=== PATIENT | male | born 1960 | race Caucasian/White ===

== ENCOUNTER 2018-01-22 19:38 | Inpatient (IN) | payer MEDICARE, OTHER ==
[~2018-01-22] VITALS: Ht 177.8 cm; Wt 97.5 kg
[2018-01-22] MEDS ORDERED: MAG HYDROX/AL HYDROX/SIMETH 30 ML ORAL.SUSP PO PRN (20:15)
[2018-01-22] MEDS ORDERED: METHYL SALICYLATE/MENTHOL TOPICAL OINTMENT 29GM TUBE. TP PRN (20:15)
[2018-01-22] MEDS ORDERED: ACETAMINOPHEN 325 MG TABLET PO PRN (20:15)
--- NOTE | 2018-01-22 20:49 | EKG ---
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
[2018-01-22 21:02] LABS: BASO # 0.1 x10^3/uL (0.0-0.2); BASO % 1 % (0-3); EOS # 0.4 x10^3/uL (0.0-0.7); EOS % 4 % (0-3); HEMATOCRIT 46.7 % (39.0-53.0); HEMOGLOBIN 15.9 g/dL (13.0-17.5); LYMPH # 1.6 x10^3/uL (1.0-4.8); LYMPH % 18 % (24-48); MEAN CORPUSCULAR HEMOGLOBIN 30 pg (25-35); MEAN CORPUSCULAR HGB CONC 34 g/dL (31-37); MEAN CORPUSCULAR VOLUME 89 fL (79-100); MONO # 0.8 x10^3/uL (0.0-1.1); MONO % 10 % (0-9); NEUT % 68 % (31-73); PLATELET COUNT 237 x10^3/uL (140-400); RED BLOOD COUNT 5.27 x10^6/uL (4.30-5.70); RED CELL DISTRIBUTION WIDTH 14.1 % (11.5-14.5); WHITE BLOOD COUNT 8.8 x10^3/uL (4.0-11.0)
[2018-01-22 21:23] LABS: ALBUMIN 3.4 g/dL (3.4-5.0); ALBUMIN/GLOBULIN RATIO 0.9 (1.0-1.7); CALCIUM 9.1 mg/dL (8.5-10.1); CREATININE 0.8 mg/dL (0.7-1.3); GFR 99.3; POTASSIUM 3.8 mmol/L (3.5-5.1); TOTAL BILIRUBIN 1.1 mg/dL (0.2-1.0); TOTAL PROTEIN 7.4 g/dL (6.4-8.2)
--- NOTE | 2018-01-22 22:47 | PDOC ---
Exam Note: Marc Note: Please also refer to the separate dictated note~for this date of service dictated separately. Discussed the patient with Nursing staff reviewed the chart.~Reviewed interim history and current functioning. Reviewed vital signs,~ Labs/ Radiology~and current medications noted below. Continue current treatment with the changes noted in the dictated addendum note Assessment: Labs: Laboratory Tests Test 01/22/18 20:30 01/22/18 20:35 Amylase Level 19 U/L (25-115) L Lipase 63 U/L (73-393) L White Blood Count 8.8 x10^3/uL (4.0-11.0) Red Blood Count 5.27 x10^6/uL (4.30-5.70) Hemoglobin 15.9 g/dL (13.0-17.5) Hematocrit 46.7 % (39.0-53.0) Mean Corpuscular Volume 89 fL (79-100) Mean Corpuscular Hemoglobin 30 pg (25-35) Mean Corpuscular Hemoglobin Concent 34 g/dL (31-37) Red Cell Distribution Width 14.1 % (11.5-14.5) Platelet Count 237 x10^3/uL (140-400) Neutrophils (%) (Auto) 68 % (31-73) Lymphocytes (%) (Auto) 18 % (24-48) L Monocytes (%) (Auto) 10 % (0-9) H Eosinophils (%) (Auto) 4 % (0-3) H Basophils (%) (Auto) 1 % (0-3) Neutrophils # (Auto) 6.0 x10^3uL (1.8-7.7) Lymphocytes # (Auto) 1.6 x10^3/uL (1.0-4.8) Monocytes # (Auto) 0.8 x10^3/uL (0.0-1.1) Eosinophils # (Auto) 0.4 x10^3/uL (0.0-0.7) Basophils # (Auto) 0.1 x10^3/uL (0.0-0.2) Sodium Level 144 mmol/L (136-145) Potassium Level 3.8 mmol/L (3.5-5.1) Chloride Level 105 mmol/L (98-107) Carbon Dioxide Level 28 mmol/L (21-32) Anion Gap 11 (6-14) Blood Urea Nitrogen 18 mg/dL (8-26) Creatinine 0.8 mg/dL (0.7-1.3) Estimated GFR (Cockcroft-Gault) 99.3 BUN/Creatinine Ratio 23 (6-20) H Glucose Level 116 mg/dL (70-99) H Lactic Acid Level 1.1 mmol/L (0.4-2.0) Calcium Level 9.1 mg/dL (8.5-10.1) Magnesium Level 1.7 mg/dL (1.8-2.4) L Total Bilirubin 1.1 mg/dL (0.2-1.0) H Aspartate Amino Transferase (AST) 15 U/L (15-37) Alanine Aminotransferase (ALT) 26 U/L (16-63) Alkaline Phosphatase 92 U/L (46-116) Lactate Dehydrogenase 172 U/L (85-227) Total Protein 7.4 g/dL (6.4-8.2) Albumin 3.4 g/dL (3.4-5.0) Albumin/Globulin Ratio 0.9 (1.0-1.7) L Current Medications: Meds: Current Medications Acetaminophen (Tylenol) 650 mg PRN Q6HRS PRN PO PAIN / TEMP; Start 01/22/18 at 20:15 Multi-Ingredient Ointment (Analgesic [place]) 1 luc PRN QID PRN TP MUSCLE PAIN; Start 01/22/18 at 20:15 Al Hydroxide/Mg Hydroxide (Mylanta Plus Xs) 15 ml PRN AFTMEALHC PRN PO DYSPEPSIA; Start 01/22/18 at 20:15 Magnesium Hydroxide (Milk Of Magnesia) 2,400 mg PRN QHS PRN PO CONSTIPATION; Start 01/22/18 at 20:15 Nicotine (Nicoderm Cq 14mg) 1 patch DAILY TD ; Start 01/23/18 at 09:00 I have reviewed the current psychotropics carefully including drug interactions. Risk benefit ratio favors no change other than as noted in my dictated progress note. GUADALUPE DELGADO MD Jan 22, 2018 22:47
[2018-01-22] MEDS ORDERED: BACL10TA PO (23:13)
[2018-01-22] MEDS ORDERED: ASPI-630 PO (23:13)
[2018-01-22] MEDS ORDERED: APIX5TAB3 PO (23:13)
[2018-01-22] MEDS ORDERED: LOSA50TA86 PO (23:13)
[2018-01-22] MEDS ORDERED: SPIR25TA PO (23:13)
[2018-01-22] MEDS ORDERED: ACET325S PO (23:13)
[2018-01-22] MEDS ORDERED: CARV6.2541 PO (23:13)
[2018-01-22] MEDS ORDERED: QUET25TA5 PO ×2 (23:13)
[2018-01-22] MEDS ORDERED: CITA20TA9 PO (23:13)
[2018-01-22] MEDS ORDERED: ATOR40TA59 PO (23:13)
[2018-01-22] MEDS ORDERED: MAGN400T3 PO (23:13)
[2018-01-22] MEDS ORDERED: TRAM50TA PO (23:13)
[2018-01-22] MEDS ORDERED: GABA-585 PO (23:13)
[2018-01-22] MEDS ORDERED: ACETAMINOPHEN 500 MG TABLET PO PRN (23:15)
[2018-01-23 01:43] VITALS: BP 158/74
[2018-01-23 07:25] LABS: BILIRUBIN,URINE NEG (NEG); CLARITY,URINE TURBID; COLOR,URINE AMBER; GLUCOSE,URINE NEG (NEG)
[2018-01-23 07:26] LABS: BACTERIA,URINE MANY /HPF (0-FEW); NITRITE,URINE POS (NEG); RBC,URINE 0 /HPF (0-2); SQUAMOUS EPITHELIAL CELL,UR OCC /LPF; UROBILINOGEN,URINE 1 mg/dL (0.2 mg/dL); WBC,URINE >40 /HPF (0-4)
[2018-01-23] MEDS: ASPIRIN 81 MG TAB.CHEW PO SCH (10:20)
[2018-01-23] MEDS: LOSARTAN 50 MG TABLET. PO SCH (10:20)
[2018-01-23] MEDS: APIXABAN 5 MG TABLET. PO SCH ×2 (10:20→19:35)
[2018-01-23] MEDS: MAGNESIUM OXIDE 400 MG TABLET PO SCH (10:20)
[2018-01-23] MEDS: SPIRONOLACTONE 25 MG TABLET PO SCH (10:20)
[2018-01-23] MEDS: NICOTINE 14MG PATCH. TD SCH (10:20)
[2018-01-23] MEDS: CARVEDILOL 6.25 MG TABLET PO SCH ×2 (10:20→17:54)
[2018-01-23] MEDS: BACLOFEN 10 MG TABLET PO SCH ×3 (10:20→19:35)
[2018-01-23] MEDS: CITALOPRAM 10 MG TABLET. PO SCH (10:20)
[2018-01-23] MEDS: GABAPENTIN 400 MG CAPSULE. PO SCH ×4 (10:20→19:35)
[2018-01-23] MEDS ORDERED: IOHEXOL 240 MG/ML 50ML VIAL. ONE (14:34)
[2018-01-23] MEDS ORDERED: IOHEXOL 300 MG/ML 75 ML VIAL. IV ONE (16:00)
[2018-01-23 16:07] VITALS: BP 148/87
[2018-01-23] MEDS: CHOLECALCIFEROL (VITAMIN D3) 50,000 UNIT CAPSULE PO SCH (16:20)
[2018-01-23] MEDS: QUEtiapine 25 MG TABLET. PO SCH ×2 (16:22→19:35)
--- NOTE | 2018-01-23 16:34 | RAD ---
PQRS Compliance statement: One or more of the following individualized dose reduction techniques were utilized for this examination: 1. Automated exposure control. 2. Adjustment of the mA and/or kV according to patient size. 3. Use of iterative reconstruction technique. Indication:FALL, SEVERE LUQ PAIN. TECHNIQUE: CT chest, abdomen and pelvis with IV contrast with multiplanar reformats. COMPARISON: None FINDINGS:CT chest: Heart is moderately enlarged in size. No pericardial or pleural effusion. Mild coronary artery calcifications. Clear neck base. No enlarged axillary, mediastinal or hilar adenopathy. Mild bibasilar dependent atelectasis in the lungs. No pneumothorax. Most likely minimal debris or mucus seen in the right proximal bronchus. Nondisplaced fracture is seen through the right lateral 4, 5, [address] abdomen pelvis: Liver, spleen, pancreas, adrenals, kidneys are within normal limits. No free pelvic fluid or ascites. No enlarged retroperitoneal or pelvic adenopathy. Mild diffuse atherosclerotic disease seen of the abdominal aorta. No bowel obstruction. Normal appendix. No pneumoperitoneum. Urinary bladder demonstrates circumferential wall thickening. Prostate and seminal vesicles show no mass lesion. No suspicious bony lesions in the pelvis. IMPRESSION: 1. Nondisplaced right fourth-sixth rib fractures. 2. No other findings. Electronically signed by: Piecre Reddy DO (01/23/2018 4:31 PM) [id number]
--- NOTE | 2018-01-23 19:05 | HP ---
ADMIT DATE: 01/22/2018 PSYCHIATRIC ADMISSION HISTORY/EVALUATION This note covers elements not covered in my initial note, 01/23/2018. I met with the patient on the evening of 01/23/2018. Previously discussed with nursing staff on several occasions including prior to the patient's admission after he was referred to us from the [facility] by Dr. Santamaria, his psychiatrist and Dr. Francisco, his primary care physician after the patient had stopped eating for the last 7-8 days. He was getting weak, was having falls as a consequence of this. He had stopped taking his medications. Reportedly, he recently broke up with his girlfriend. Per the guardian insistence, all of this triggered the worsening of his agitation, depression. Additionally, he has significant expressive aphasia, some memory deficits, and past history of polydrug abuse and progressive dementia, vascular, status post cerebrovascular accident. The patient had failed outpatient psychiatric interventions resulting in this referral. CHIEF COMPLAINT: "No." The patient was quite nonverbal consequent to his aphasia trying to show me different fingers in an attempt to convey when he thought he had come here and he felt he has been here about 5 days. HISTORY OF PRESENT ILLNESS: The patient has a history of possible bipolar disorder, past history of polysubstance abuse, and vascular dementia, status post cerebrovascular accident. He has been more depressed, hopeless, helpless, worthless, paranoid, delusional surrounding the circumstances noted above. He has made statements that he wants to . He has been aggressive towards his roommates, specifically, on 01/10/2018. No active homicidal ideation. PAST PSYCHIATRIC HISTORY: As above. PAST MEDICAL HISTORY: Status post CVA; aphasia, expressive. Hard of hearing, history of polysubstance abuse, vascular dementia. ACCU-CHEKS: Daily. DIET: Regular. ALLERGIES: CODEINE, INFLUENZA VACCINE, PENICILLIN, HYDROCODONE. CODE STATUS: FULL CODE. CURRENT PSYCHOTROPICS: Seroquel 12.5 mg in the afternoon and 25 mg at night. FAMILY HISTORY: Noncontributory. SOCIAL HISTORY: Past history of alcohol, drug abuse. No physical, sexual or elder abuse history is noted. He is not known to be a perpetrator. REACTION TO HOSPITALIZATION: The patient accepting of this. ASSETS: Stable living at the above retirement. MENTAL STATUS EXAMINATION: The patient was seen individually on the evening of 01/23/2018 in his room. He was unaware of when he came here. Part of this is expressive aphasia, but he truly did not seem to know because he felt he had been here several days, which he showed me with his fingers. Insight, judgment, recent and remote memory, attention, concentration, fund of knowledge poor, consistent with his diagnosis. He does appear somewhat paranoid, depressed. LABORATORY DATA: Reviewed. IMPRESSION: Bipolar 1 disorder, depressed with psychotic features; major neurocognitive disorder, vascular with delusion, depression; anxiety disorder, unspecified; impulse control disorder, unspecified. Rest as above including past history of polysubstance abuse/alcohol abuse. TREATMENT/PLAN: Admit to Geropsychiatry Unit at [facility]. I will see the patient daily individually from a psychiatric standpoint, medical followup per Dr. Collins/Dr. Johnson. Continue the patient on his current psychotropics, observe him baseline. Consider adding Depakote as a mood stabilizer, increasing the Seroquel. He was an inpatient at the [facility] in [place] and we will obtain those records as well. Estimated length of stay 10-12 days. DISPOSITION: Plans would be back to [facility] when stable. Dr. Pope will assume care of the patient for me starting this evening. MAN Shant DELGADO MD DR: RICHY/amada JOB#: [id number] / [id number]
[2018-01-23] MEDS: PATCH REMOVAL. MC SCH (19:23)
[2018-01-23] MEDS: ATORVASTATIN CALCIUM 20 MG TABLET PO SCH (19:35)
[2018-01-23 20:08] LABS: THYROXINE 7.8 ug/dL (4.5-12.0)
[2018-01-23] MEDS: MORPHINE SULFATE 10 MG/5 ML ORAL SOLUTION. PO PRN (20:38)
--- NOTE | 2018-01-23 21:54 | CONS ---
DATE OF CONSULTATION: 01/23/2018 REASON FOR CONSULTATION: Medical management. HISTORY OF PRESENT ILLNESS: The patient is a 57-year-old male patient, a resident at [facility], who was admitted on account of refusal to eat. He apparently has stopped eating, has not eaten anything for the last 7-8 days, stopped taking medication as recently broke up with his girlfriend, their guardians insistence. The transition social worker tried to visit with him, but the patient dislikes black people. In the facility, I believe that he fell as a result of his not eating for the last 7-8 days. [facility] and apparently after a fall, sustaining a laceration of oral cavity, loose tooth due to trauma and nasal bone fracture and was extensively investigated at the [facility]. From there, initially, there was an attempt to bring him directly here; however, he was discharged and was admitted directly from [facility] for inpatient psychiatric stabilization. When he was admitted yesterday, he did complain of left upper abdominal pain and we did some stat labs that were unremarkable When I saw him, he continued to complain of pain in his left side of the chest and also left upper quadrant. 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 PAST SURGICAL HISTORY: Unremarkable. FAMILY HISTORY: Positive for hypertension. SOCIAL HISTORY: He is a resident at [facility]. He does not smoke, drink alcohol or use any recreational drugs. ALLERGIES: HE IS ALLERGIC TO INFLUENZA VIRUS VACCINE, PENICILLIN AND HYDROCODONE. MEDICATIONS: He is currently on following medications: He is on baclofen 10 mg 3 times a day, apixaban 5 mg twice a day, atorvastatin calcium 40 mg at bedtime, carvedilol 6.25 mg twice a day, losartan potassium 50 mg daily, spironolactone 25 mg daily, aspirin 81 mg once a day, tramadol 50 mg every 8 hours and Tylenol 650 mg every 4 hours. He is on gabapentin 400 mg 4 times a day, citalopram hydrobromide 30 mg daily, quetiapine fumarate 12.5 mg daily and 25 mg at bedtime, magnesium oxide 400 mg daily. REVIEW OF SYSTEMS: The patient's main complaint is pain in his left upper quadrant. PHYSICAL EXAMINATION: GENERAL: When I examined him, he was resting slightly propped up in bed, pointing to his left upper quadrant and left-sided chest. He has expressive aphasia, difficult to understand what he stays, but he was somewhat pale, but no jaundice, cyanosis, or thyromegaly. No jugular venous distension. No lower limb edema. VITAL SIGNS: His heart rate was 74, blood pressure 158/74, temperature was 98, respiratory rate was 21 and oxygen saturation was 95%. HEAD, EYES, EARS, NOSE AND THROAT: Showed normocephalic. He has laceration on his lower limb because of recent fall. NECK: Supple. HEART: Showed normal first and second sounds. No gallop, rub or murmur. CHEST: Clear to auscultation. No crepitation or rhonchi. ABDOMEN: Distended with marked tenderness in the left upper quadrant and also tenderness on palpation of the left-sided chest wall. There is no guarding or rigidity. No organomegaly. Hernial orifice intact and bowel sounds normal. NEUROLOGIC: He was awake and alert. All his cranial nerves are intact. He has right-sided hemiplegia. He has aphasia. LABORATORY DATA: Showed a white cell count of 8800, hemoglobin 15.9, hematocrit 46.7, MCV 89 and platelet count of 237,000. His chemistry showed serum sodium 144, potassium 3.8, chloride 105, bicarbonate 28, anion gap of 11, BUN 18, creatinine 0.8, estimated GFR was 99 mL per minute, his glucose was 116. Lactic acid 1.1, calcium was 9.1. Total bilirubin slightly elevated at 1.1. However, AST, ALT, alkaline phosphatase were normal. Lactate dehydrogenase was 172. Total protein was 7.4, albumin was 3.4. His amylase was 19. Lipase was 63. His magnesium was 1.7. Serum iron was 43. TIBC was 180, iron saturation was 15%. His serum triglycerides were 79, total cholesterol was 95, LDL was 42, VLDL was 15, and HDL cholesterol was 38 and the ratio was 2. His vitamin B12 was 757. His 25-hydroxy vitamin D was 16.2. TSH was normal at 1.854. His urinalysis was essentially unremarkable. The urine was turbid with a pH of 5.5, specific gravity of 1.030. There was a trace of protein. The urine was negative for glucose. There is large amount of ketones, small amount of blood, positive for nitrite, small amount of leukocyte esterase, 0 rbc's, more than 40 wbc's, and many bacteria. His thyroglobulin antibody was nonreactive. Given the history of fall and severe pain in the left upper quadrant, I am concerned that he might have intra-abdominal pathology either left-sided rib fracture or splenic injury or retroperitoneal hemorrhage. PLAN: I plan to arrange for him to have a CT scan of the chest, abdomen and pelvis with IV and oral contrast given that he is already on apixaban for his AFib and we will basically decide on further management according to the finding. Thank you, Dr. West for allowing me to participate in the care of this patient. SALVATORE MICHELLE MD DR: RAHEEL/amada JOB#: [id number] / [id number]
--- NOTE | 2018-01-23 23:01 | PDOC ---
Exam Note: Marc Note: Please also refer to the separate dictated note~for this date of service dictated separately.~Patient seen individually. Discussed the patient with Nursing staff reviewed the chart.~Reviewed interim history and current functioning. Reviewed vital signs,~Labs/ Radiology~and current medications noted below. Continue current treatment with the changes noted in the dictated addendum note Assessment: Vital Signs: Vital Signs Date Time Temp Pulse Resp B/P (MAP) Pulse Ox O2 Delivery O2 Flow Rate FiO2 01/23/18 20:38 92 01/23/18 17:54 86 148/87 01/23/18 16:07 98.4 20 Room Air Labs: Laboratory Tests Test 01/23/18 06:35 Urine Collection Type Unknown Urine Color Dang Urine Clarity Turbid Urine pH 5.5 Urine Specific [place] >=1.030 Urine Protein Trace (NEG-TRACE) Urine Glucose (UA) Neg mg/dL (NEG) Urine Ketones (Stick) >=160 mg/dL (NEG) Urine Blood Small (NEG) Urine Nitrite Pos (NEG) Urine Bilirubin Neg (NEG) Urine Urobilinogen Dipstick 1 mg/dL (0.2 mg/dL) Urine Leukocyte Esterase Small (NEG) Urine RBC 0 /HPF (0-2) Urine WBC >40 /HPF (0-4) Urine Squamous Epithelial Cells Occ /LPF Urine Bacteria Many /HPF (0-FEW) Current Medications: Meds: Current Medications Acetaminophen (Tylenol) 650 mg PRN Q6HRS PRN PO PAIN / TEMP; Start 01/22/18 at 20:15 Multi-Ingredient Ointment (Analgesic [place]) 1 luc PRN QID PRN TP MUSCLE PAIN; Start 01/22/18 at 20:15 Al Hydroxide/Mg Hydroxide (Mylanta Plus Xs) 15 ml PRN AFTMEALHC PRN PO DYSPEPSIA; Start 01/22/18 at 20:15 Magnesium Hydroxide (Milk Of Magnesia) 2,400 mg PRN QHS PRN PO CONSTIPATION; Start 01/22/18 at 20:15 Nicotine (Nicoderm Cq 14mg) 1 patch DAILY TD ; Start 01/23/18 at 09:00 Citalopram Hydrobromide (CeleXA) 30 mg DAILY PO ; Start 01/23/18 at 09:00 Gabapentin (Neurontin) 400 mg QID PO Last administered on 01/23/18at 19:35; Start 01/23/18 at 09:00 Losartan Potassium (Cozaar) 50 mg DAILY PO ; Start 01/23/18 at 09:00 Tramadol HCl (Ultram) 50 mg PRN Q8HRS PRN PO PAIN; Start 01/22/18 at 23:15 Acetaminophen (Tylenol) 500 mg PRN Q6HRS PRN PO PAIN; Start 01/22/18 at 23:15 Apixaban (Eliquis) 5 mg BID PO Last administered on 01/23/18at 19:35; Start at 09:00 Aspirin (Children'S Aspirin) 81 mg DAILY08 PO ; Start 01/23/18 at 08:00 Atorvastatin Calcium (Lipitor) 40 mg QHS PO Last administered on 01/23/18 19: 35; Start 01/23/18 at 21:00 Baclofen (Lioresal) 10 mg TID PO Last administered on 01/23/18at 19:35; Start 01/23/18 at 09:00 Carvedilol (Coreg) 6.25 mg BIDWMEALS PO Last administered on 01/23/18at 17:54; Start 01/23/18 at 08:00 Magnesium Oxide (Magnesium Oxide) 400 mg DAILY PO ; Start 01/23/18 at 09:00 Quetiapine Fumarate (SEROquel) 12.5 mg DAILY@1500 PO Last administered on 01/23at 16:22; Start 01/23/18 at 15:00 Quetiapine Fumarate (SEROquel) 25 mg QHS PO Last administered on 01/23/18at 19: 35; Start 01/23/18 at 21:00 Spironolactone (Aldactone) 25 mg DAILY PO ; Start 01/23/18 at 09:00 Vitamin D (Vitamin D3) 50,000 unit WEEKLY PO ; Start 01/30/18 at 09:00; Stop 01/30/18 at 09:00; Status DC Iohexol (Omnipaque 240 Mg/ml) 50 ml STK-MED ONCE .ROUTE ; Start 01/23/18 at 14: 34; Stop 01/23/18 at 14:35; Status DC Iohexol (Omnipaque 300 Mg/ml) 75 ml 1X ONCE IV Last administered on at 16:02; Start 01/23/18 at 16:00; Stop 01/23/18 at 16:01; Status DC Vitamin D (Vitamin D3) 50,000 unit WEEKLY PO Last administered on 01/23/18at 16 :20; Start 01/23/18 at 16:15 Morphine Sulfate (Morphine Oral Solution) 5 mg PRN Q4HRS PRN PO PAIN Last administered on 01/23/18at 20:38; Start 01/23/18 at 18:00 Lidocaine (Lidoderm) 1 patch DAILY TD ; Start 01/24/18 at 09:00 Miscellaneous (Lidoderm Patch Removal) 1 ea QHS MC ; Start 01/23/18 at 21:00 Active Scripts Active Reported Acetaminophen 325 Mg/10.15 Ml Solution 500 Mg PO PRN Q6HRS PRN Tramadol Hcl (Tramadol HCl) 50 Mg Tablet 50 Mg PO PRN Q8HRS PRN Seroquel (Quetiapine Fumarate) 25 Mg Tablet 25 Mg PO QHS Seroquel (Quetiapine Fumarate) 25 Mg Tablet 12.5 Mg PO DAILY@1500 Magnesium Oxide 400 Mg Tablet 400 Mg PO DAILY Losartan Potassium 50 Mg Tablet 50 Mg PO DAILY Gabapentin 100 Mg Capsule 400 Mg PO QID Eliquis (Apixaban) 5 Mg Tablet 5 Mg PO BID Celexa (Citalopram Hydrobromide) 20 Mg Tablet 30 Mg PO DAILY Carvedilol 6.25 Mg Tablet 6.25 Mg PO BID Baclofen 10 Mg Tablet 10 Mg PO TID Atorvastatin Calcium 40 Mg Tablet 40 Mg PO QHS Aspirin 81 Mg Tab.chew 81 Mg PO DAILY Aldactone (Spironolactone) 25 Mg Tablet 25 Mg PO DAILY I have reviewed the current psychotropics carefully including drug interactions. Risk benefit ratio favors no change other than as noted in my dictated progress note. Diagnosis: Problems: (1) Anxiety disorder (2) Schizoaffective disorder, bipolar type (3) Dementia, vascular, with delusions (4) Dementia, vascular, with depression GUADALUPE DELGADO MD Jan 23, 2018 23:01
[2018-01-24 06:01] VITALS: BP 127/88
[2018-01-24] MEDS: MORPHINE SULFATE 10 MG/5 ML ORAL SOLUTION. PO PRN ×3 (06:15→19:32)
[2018-01-24] MEDS: MAGNESIUM OXIDE 400 MG TABLET PO SCH (07:46)
[2018-01-24] MEDS: LOSARTAN 50 MG TABLET. PO SCH (07:47)
[2018-01-24] MEDS: BACLOFEN 10 MG TABLET PO SCH ×3 (07:47→19:13)
[2018-01-24] MEDS: GABAPENTIN 400 MG CAPSULE. PO SCH ×4 (07:47→19:14)
[2018-01-24] MEDS: SPIRONOLACTONE 25 MG TABLET PO SCH (07:47)
[2018-01-24] MEDS: ASPIRIN 81 MG TAB.CHEW PO SCH (07:48)
[2018-01-24] MEDS: CITALOPRAM 10 MG TABLET. PO SCH (07:48)
[2018-01-24] MEDS: CARVEDILOL 6.25 MG TABLET PO SCH ×2 (07:48→16:54)
[2018-01-24] MEDS: APIXABAN 5 MG TABLET. PO SCH ×2 (07:48→19:14)
[2018-01-24] MEDS: NICOTINE 14MG PATCH. TD SCH (07:49)
[2018-01-24] MEDS: LIDOCAINE (700MG/PATCH) PATCH. TD SCH (07:54)
[2018-01-24] MEDS: QUEtiapine 25 MG TABLET. PO SCH ×2 (15:42→19:14)
[2018-01-24 16:01] VITALS: BP 120/78
[2018-01-24] MEDS: PATCH REMOVAL. MC SCH (19:13)
[2018-01-24] MEDS: ATORVASTATIN CALCIUM 20 MG TABLET PO SCH (19:13)
[2018-01-25] MEDS: MORPHINE SULFATE 10 MG/5 ML ORAL SOLUTION. PO PRN ×3 (02:57→16:52)
[2018-01-25 05:33] VITALS: BP 136/83
[2018-01-25] MEDS: ASPIRIN 81 MG TAB.CHEW PO SCH (07:44)
[2018-01-25] MEDS: CARVEDILOL 6.25 MG TABLET PO SCH ×2 (07:45→16:46)
[2018-01-25] MEDS: SPIRONOLACTONE 25 MG TABLET PO SCH (07:45)
[2018-01-25] MEDS: CITALOPRAM 10 MG TABLET. PO SCH (07:45)
[2018-01-25] MEDS: APIXABAN 5 MG TABLET. PO SCH ×2 (07:46→19:23)
[2018-01-25] MEDS: BACLOFEN 10 MG TABLET PO SCH ×3 (07:46→19:23)
[2018-01-25] MEDS: LOSARTAN 50 MG TABLET. PO SCH (07:46)
[2018-01-25] MEDS: GABAPENTIN 400 MG CAPSULE. PO SCH ×4 (07:47→19:23)
[2018-01-25] MEDS: MAGNESIUM OXIDE 400 MG TABLET PO SCH (07:47)
[2018-01-25] MEDS: LIDOCAINE (700MG/PATCH) PATCH. TD SCH (07:48)
[2018-01-25] MEDS: NICOTINE 14MG PATCH. TD SCH (07:49)
[2018-01-25] MEDS: QUEtiapine 25 MG TABLET. PO SCH ×2 (13:59→19:23)
[2018-01-25 15:32] VITALS: BP 122/75
[2018-01-25] MEDS: PATCH REMOVAL. MC SCH ×2 (19:23)
[2018-01-25] MEDS: ATORVASTATIN CALCIUM 20 MG TABLET PO SCH (19:23)
--- NOTE | 2018-01-25 19:48 | PN ---
DATE: 01/25/2018 SUBJECTIVE: The patient was seen today, met with the staff. Chart reviewed. The patient was admitted from [facility]. The patient apparently refused to eat and frequent falling prior to coming here. The patient also is refusing the medications prior to coming here. The patient's behavior improved slightly, cooperative, taking his medications and complaining of lower abdominal pain. The patient is mostly noncommunicative. No major problems. OBSERVATIONS: VITAL SIGNS: Temperature 98.0, blood pressure 136/83, pulse 68, respirations 18, and O2 sat 94%. Slept about 8 hours last night. The patient's appetite is fair. MEDICATIONS: The patient's current medications include Seroquel 25 mg at night and 12.5 mg daily, gabapentin 400 mg q.i.d., and citalopram 30 mg daily. The patient is mainly complaining of back pain. ASSESSMENT: 1. Bipolar disorder type 1, depressed with psychotic features. 2. Major neurocognitive disorder, vascular with delusion, depression. 3. Impulse control disorder, unspecified. PLAN: To continue with the treatment. DELIA HARMAN MD DR: MELONY/amada JOB#: [id number] / [id number]
[2018-01-26] MEDS: MORPHINE SULFATE 10 MG/5 ML ORAL SOLUTION. PO PRN ×2 (04:23→11:09)
[2018-01-26 05:29] VITALS: BP 134/84
[2018-01-26] MEDS: MAGNESIUM HYDROXIDE 2,400 MG/30 ML ORAL.SUSP. PO PRN (06:06)
[2018-01-26] MEDS: GABAPENTIN 400 MG CAPSULE. PO SCH ×4 (07:51→19:53)
[2018-01-26] MEDS: ASPIRIN 81 MG TAB.CHEW PO SCH (07:51)
[2018-01-26] MEDS: LOSARTAN 50 MG TABLET. PO SCH (07:51)
[2018-01-26] MEDS: MAGNESIUM OXIDE 400 MG TABLET PO SCH (07:52)
[2018-01-26] MEDS: NICOTINE 14MG PATCH. TD SCH (07:52)
[2018-01-26] MEDS: BACLOFEN 10 MG TABLET PO SCH ×3 (07:52→19:52)
[2018-01-26] MEDS: SPIRONOLACTONE 25 MG TABLET PO SCH (07:52)
[2018-01-26] MEDS: APIXABAN 5 MG TABLET. PO SCH ×2 (07:52→19:53)
[2018-01-26] MEDS: CITALOPRAM 10 MG TABLET. PO SCH (07:52)
[2018-01-26] MEDS: LIDOCAINE (700MG/PATCH) PATCH. TD SCH ×2 (07:53→07:57)
[2018-01-26] MEDS: CARVEDILOL 6.25 MG TABLET PO SCH ×2 (07:54→17:06)
[2018-01-26] MEDS: QUEtiapine 25 MG TABLET. PO SCH ×2 (15:00→19:53)
[2018-01-26 17:08] VITALS: BP 110/66
[2018-01-26] MEDS: ATORVASTATIN CALCIUM 20 MG TABLET PO SCH (19:52)
[2018-01-26] MEDS: PATCH REMOVAL. MC SCH (19:53)
[2018-01-27] MEDS: MORPHINE SULFATE 10 MG/5 ML ORAL SOLUTION. PO PRN (05:35)
[2018-01-27 06:32] VITALS: BP 123/83
[2018-01-27] MEDS: ASPIRIN 81 MG TAB.CHEW PO SCH (08:28)
[2018-01-27] MEDS: CARVEDILOL 6.25 MG TABLET PO SCH ×2 (08:31→17:50)
[2018-01-27] MEDS: CITALOPRAM 10 MG TABLET. PO SCH (08:32)
[2018-01-27] MEDS: SPIRONOLACTONE 25 MG TABLET PO SCH (08:32)
[2018-01-27] MEDS: LOSARTAN 50 MG TABLET. PO SCH (08:32)
[2018-01-27] MEDS: LIDOCAINE (700MG/PATCH) PATCH. TD SCH ×2 (08:33)
[2018-01-27] MEDS: GABAPENTIN 400 MG CAPSULE. PO SCH ×4 (08:33→19:26)
[2018-01-27] MEDS: MAGNESIUM OXIDE 400 MG TABLET PO SCH (08:33)
[2018-01-27] MEDS: BACLOFEN 10 MG TABLET PO SCH ×3 (08:33→19:26)
[2018-01-27] MEDS: APIXABAN 5 MG TABLET. PO SCH ×2 (08:33→19:26)
[2018-01-27] MEDS: NICOTINE 14MG PATCH. TD SCH (08:34)
[2018-01-27 09:23] LABS: BASO # 0.1 x10^3/uL (0.0-0.2); BASO % 1 % (0-3); EOS # 0.5 x10^3/uL (0.0-0.7); EOS % 5 % (0-3); HEMATOCRIT 44.4 % (39.0-53.0); LYMPH % 20 % (24-48); MEAN CORPUSCULAR HEMOGLOBIN 30 pg (25-35); MEAN CORPUSCULAR HGB CONC 34 g/dL (31-37); MEAN CORPUSCULAR VOLUME 89 fL (79-100); MONO # 0.7 x10^3/uL (0.0-1.1); MONO % 7 % (0-9); NEUT # 6.8 x10^3uL (1.8-7.7); NEUT % 68 % (31-73); PLATELET COUNT 278 x10^3/uL (140-400); RED BLOOD COUNT 4.96 x10^6/uL (4.30-5.70); RED CELL DISTRIBUTION WIDTH 14.2 % (11.5-14.5)
[2018-01-27 09:36] LABS: ALBUMIN 3.1 g/dL (3.4-5.0); ALBUMIN/GLOBULIN RATIO 0.8 (1.0-1.7); CALCIUM 8.9 mg/dL (8.5-10.1); GFR 76.7; POTASSIUM 4.5 mmol/L (3.5-5.1); TOTAL BILIRUBIN 0.6 mg/dL (0.2-1.0)
[2018-01-27] MEDS: traMADol 50 MG TABLET PO PRN ×2 (11:12→19:35)
[2018-01-27] MEDS: QUEtiapine 25 MG TABLET. PO SCH ×2 (14:10→19:26)
[2018-01-27 16:10] VITALS: BP 107/73
[2018-01-27] MEDS: PATCH REMOVAL. MC SCH (19:26)
[2018-01-27] MEDS: LACTOBACILLUS RHAMNOSUS GG 1 CAPSULE. PO SCH (19:32)
[2018-01-27] MEDS: ATORVASTATIN CALCIUM 20 MG TABLET PO SCH (19:32)
[2018-01-27] MEDS: SMZ/TMP 800/160MG TABLET. PO SCH (19:32)
--- NOTE | 2018-01-28 00:15 | PN ---
DATE: 01/27/2018 SUBJECTIVE: The patient was seen today, met with the staff, chart reviewed. The patient's behavior has improved, cooperative, taking his medications. The patient is mostly withdrawn, most of the time noncommunicative. OBSERVATION: VITAL SIGNS: Temperature 98.3, blood pressure 123/83, pulse 73, respirations 20, O2 sat 95%. GENERAL: Slept about 8 hours last night. CURRENT MEDICATIONS: The patient's current medications include Seroquel, gabapentin and citalopram. The patient is not having any side effects. LABORATORY DATA: Labs are reviewed. ASSESSMENT: 1. Bipolar disorder type 1, depressed with psychotic features. 2. Major neurocognitive disorder, vascular with delusions, depression. 3. Impulse control disorder, unspecified. PLAN: Plan is to continue with the treatment. DELIA HARMAN MD DR: MELONY/amada JOB#: [id number] / [id number]
[2018-01-28] MEDS: traMADol 50 MG TABLET PO PRN (05:16)
[2018-01-28 05:48] VITALS: BP 103/66
[2018-01-28] MEDS: ASPIRIN 81 MG TAB.CHEW PO SCH (08:18)
[2018-01-28] MEDS: LIDOCAINE (700MG/PATCH) PATCH. TD SCH ×2 (08:18→08:22)
[2018-01-28] MEDS: LOSARTAN 50 MG TABLET. PO SCH (08:19)
[2018-01-28] MEDS: BACLOFEN 10 MG TABLET PO SCH ×3 (08:19→19:45)
[2018-01-28] MEDS: CARVEDILOL 6.25 MG TABLET PO SCH ×2 (08:19→17:00)
[2018-01-28] MEDS: LACTOBACILLUS RHAMNOSUS GG 1 CAPSULE. PO SCH ×2 (08:20→19:45)
[2018-01-28] MEDS: CITALOPRAM 10 MG TABLET. PO SCH (08:20)
[2018-01-28] MEDS: APIXABAN 5 MG TABLET. PO SCH ×2 (08:20→19:45)
[2018-01-28] MEDS: SMZ/TMP 800/160MG TABLET. PO SCH ×2 (08:20→19:45)
[2018-01-28] MEDS: SPIRONOLACTONE 25 MG TABLET PO SCH (08:20)
[2018-01-28] MEDS: MAGNESIUM OXIDE 400 MG TABLET PO SCH (08:20)
[2018-01-28] MEDS: NICOTINE 14MG PATCH. TD SCH (08:21)
[2018-01-28] MEDS: GABAPENTIN 400 MG CAPSULE. PO SCH ×4 (08:22→19:45)
[2018-01-28] MEDS: QUEtiapine 25 MG TABLET. PO SCH ×2 (15:06→19:45)
[2018-01-28 16:02] VITALS: BP 108/72
[2018-01-28] MEDS: DRONABINOL 2.5 MG CAPSULE PO SCH (17:46)
[2018-01-28] MEDS: ATORVASTATIN CALCIUM 20 MG TABLET PO SCH (19:45)
[2018-01-28] MEDS: PATCH REMOVAL. MC SCH (21:00)
--- NOTE | 2018-01-28 23:21 | PN ---
DATE: 01/28/2018 SUBJECTIVE: The patient was seen today, met with the staff, chart reviewed. Staff reports no major behavior problems except he is refusing to eat and has been staying in bed most of the time today. The patient also appears to be depressed. OBSERVATION: VITAL SIGNS: Temperature 98.3, blood pressure 103/66, pulse 60, respirations 16, O2 sat 94%. Slept about 8 hours last night. CURRENT MEDICATIONS: The patient's current medications include Seroquel, gabapentin, and citalopram. ALLERGIES: The patient is not having any side effects. The patient's lab reviewed. ASSESSMENT: 1. Bipolar disorder type 1, depressed with psychotic features. 2. Major neurocognitive disorder, vascular with delusions, and depression. 3. Impulse control disorder, unspecified. PLAN: Continue with the treatment. DELIA HARMAN MD DR: MELONY/amada JOB#: [id number] / [id number]
[2018-01-29 05:36] VITALS: BP 108/72
[2018-01-29] MEDS: SPIRONOLACTONE 25 MG TABLET PO SCH (08:34)
[2018-01-29] MEDS: LACTOBACILLUS RHAMNOSUS GG 1 CAPSULE. PO SCH ×2 (08:34→19:23)
[2018-01-29] MEDS: ASPIRIN 81 MG TAB.CHEW PO SCH (08:34)
[2018-01-29] MEDS: CARVEDILOL 6.25 MG TABLET PO SCH ×2 (08:35→17:20)
[2018-01-29] MEDS: APIXABAN 5 MG TABLET. PO SCH ×2 (08:36→19:23)
[2018-01-29] MEDS: SMZ/TMP 800/160MG TABLET. PO SCH ×2 (08:36→19:23)
[2018-01-29] MEDS: CITALOPRAM 10 MG TABLET. PO SCH (08:36)
[2018-01-29] MEDS: BACLOFEN 10 MG TABLET PO SCH ×3 (08:36→19:23)
[2018-01-29] MEDS: GABAPENTIN 400 MG CAPSULE. PO SCH ×4 (08:36→19:23)
[2018-01-29] MEDS: NICOTINE 14MG PATCH. TD SCH (08:36)
[2018-01-29] MEDS: LIDOCAINE (700MG/PATCH) PATCH. TD SCH ×2 (08:37→08:41)
[2018-01-29] MEDS: LOSARTAN 50 MG TABLET. PO SCH (08:39)
[2018-01-29] MEDS: MAGNESIUM OXIDE 400 MG TABLET PO SCH (08:41)
[2018-01-29] MEDS: DRONABINOL 2.5 MG CAPSULE PO SCH ×2 (12:22→17:19)
[2018-01-29] MEDS: QUEtiapine 25 MG TABLET. PO SCH ×2 (15:06→19:23)
[2018-01-29 16:12] VITALS: BP 100/66
[2018-01-29] MEDS: MAGNESIUM HYDROXIDE 2,400 MG/30 ML ORAL.SUSP. PO PRN (17:21)
--- NOTE | 2018-01-29 19:01 | RAD ---
Indication: Distended abdomen with tenderness. TECHNIQUE: Supine views of the abdomen and pelvis COMPARISON: None FINDINGS: Visualized lung bases are clear. Heart is normal in size. No pleural effusion. No evidence of pneumoperitoneum. Gas filled stomach noted. No abnormally dilated bowel loops or air-fluid levels. Moderate proximal colonic stool burden. IMPRESSION: 1. No radiographic evidence of bowel obstruction. Electronically signed by: Pierce Reddy DO (01/29/2018 6:57 PM) [facility]
[2018-01-29] MEDS: ATORVASTATIN CALCIUM 20 MG TABLET PO SCH (19:23)
[2018-01-29] MEDS: PATCH REMOVAL. MC SCH (19:33)
--- NOTE | 2018-01-29 21:15 | PN ---
DATE: 01/29/2018 SUBJECTIVE: The patient was seen today, met with the staff, chart reviewed. The patient is still refusing to eat at times, is being in bed most of the time. The patient appears to be depressed, but the patient denies. He has been depressed all the time. OBSERVATION: VITAL SIGNS: Temperature 97.8, blood pressure 108/72, pulse 65, respirations 20, O2 sat 98%. Slept about 6 hours last night. The patient's appetite is fair. CURRENT MEDICATIONS: Include Seroquel, gabapentin, citalopram and not having any side effects. ASSESSMENT: 1. Bipolar disorder type 1, depressed with psychotic features. 2. Major neurocognitive disorder, vascular with delusions and depression. 3. Impulse control disorder, unspecified. PLAN: Continue with the treatment. DELIA HARMAN MD DR: MELONY/amada JOB#: [id number] / [id number]
[2018-01-30] MEDS: traMADol 50 MG TABLET PO PRN ×2 (00:19→13:27)
[2018-01-30 05:53] VITALS: BP 104/68
[2018-01-30] MEDS: LIDOCAINE (700MG/PATCH) PATCH. TD SCH ×2 (08:57)
[2018-01-30] MEDS ORDERED: CHOLECALCIFEROL (VITAMIN D3) 50,000 UNIT CAPSULE PO SCH (09:00)
[2018-01-30] MEDS: NICOTINE 14MG PATCH. TD SCH (09:02)
[2018-01-30] MEDS: MAGNESIUM OXIDE 400 MG TABLET PO SCH (09:03)
[2018-01-30] MEDS: LOSARTAN 50 MG TABLET. PO SCH (09:03)
[2018-01-30] MEDS: CITALOPRAM 10 MG TABLET. PO SCH (09:03)
[2018-01-30] MEDS: SPIRONOLACTONE 25 MG TABLET PO SCH (09:04)
[2018-01-30] MEDS: CHOLECALCIFEROL (VITAMIN D3) 50,000 UNIT CAPSULE PO SCH (09:04)
[2018-01-30] MEDS: SMZ/TMP 800/160MG TABLET. PO SCH ×2 (09:04→19:17)
[2018-01-30] MEDS: LACTOBACILLUS RHAMNOSUS GG 1 CAPSULE. PO SCH ×2 (09:04→19:17)
[2018-01-30] MEDS: APIXABAN 5 MG TABLET. PO SCH ×2 (09:04→19:17)
[2018-01-30] MEDS: ASPIRIN 81 MG TAB.CHEW PO SCH (09:04)
[2018-01-30] MEDS: BACLOFEN 10 MG TABLET PO SCH ×3 (09:04→19:17)
[2018-01-30] MEDS: GABAPENTIN 400 MG CAPSULE. PO SCH ×4 (09:07→19:16)
[2018-01-30] MEDS: CARVEDILOL 6.25 MG TABLET PO SCH ×2 (09:07→17:21)
[2018-01-30] MEDS: DRONABINOL 2.5 MG CAPSULE PO SCH ×2 (11:33→17:16)
[2018-01-30] MEDS: QUEtiapine 25 MG TABLET. PO SCH ×2 (13:25→19:16)
--- NOTE | 2018-01-30 18:49 | PN ---
DATE: 01/30/2018 SUBJECTIVE: The patient was seen today, met with the staff, chart reviewed. The patient's behavior remains the same. He stays in bed most of the time. The patient has aphasia, communicates nonverbally. The patient does interact with the staff, able to communicate with staff with nonverbal. OBSERVATION: VITAL SIGNS: Temperature 98.5, blood pressure 120/75, pulse 64, respiration 18, O2 sat 96%. GENERAL: The patient's sleep average, appetite fair. MEDICATIONS: The patient's current medications include Seroquel, gabapentin, citalopram and not admitting to any side effects to the medications and also no major physical complaints. ASSESSMENT: 1. Bipolar disorder type 1, depressed with psychotic features. 2. Major neurocognitive disorder, vascular with delusions and depression. 3. Impulse control disorder, unspecified. PLAN: Continue with the treatment. DELIA HARMAN MD DR: MELONY/amada JOB#: [id number] / [id number]
[2018-01-30] MEDS: ATORVASTATIN CALCIUM 20 MG TABLET PO SCH (19:18)
[2018-01-30] MEDS: PATCH REMOVAL. MC SCH (19:34)
[2018-01-31 05:34] VITALS: BP 117/72
[2018-01-31] MEDS: LIDOCAINE (700MG/PATCH) PATCH. TD SCH (09:07)
[2018-01-31] MEDS: NICOTINE 14MG PATCH. TD SCH (09:07)
[2018-01-31] MEDS: LACTOBACILLUS RHAMNOSUS GG 1 CAPSULE. PO SCH ×3 (09:08→20:08)
[2018-01-31] MEDS: CITALOPRAM 10 MG TABLET. PO SCH ×2 (09:09→10:52)
[2018-01-31] MEDS: SPIRONOLACTONE 25 MG TABLET PO SCH ×2 (09:09→10:51)
[2018-01-31] MEDS: MAGNESIUM OXIDE 400 MG TABLET PO SCH ×2 (09:09→10:53)
[2018-01-31] MEDS: BACLOFEN 10 MG TABLET PO SCH ×4 (09:09→20:08)
[2018-01-31] MEDS: SMZ/TMP 800/160MG TABLET. PO SCH ×3 (09:09→20:08)
[2018-01-31] MEDS: LOSARTAN 50 MG TABLET. PO SCH ×2 (09:09→10:52)
[2018-01-31] MEDS: ASPIRIN 81 MG TAB.CHEW PO SCH ×2 (09:10→10:51)
[2018-01-31] MEDS: APIXABAN 5 MG TABLET. PO SCH ×3 (09:10→20:09)
[2018-01-31] MEDS: GABAPENTIN 400 MG CAPSULE. PO SCH ×5 (09:16→20:08)
[2018-01-31] MEDS: CARVEDILOL 6.25 MG TABLET PO SCH ×3 (09:16→15:38)
[2018-01-31] MEDS: DRONABINOL 2.5 MG CAPSULE PO SCH ×2 (12:25→15:37)
[2018-01-31 15:22] VITALS: BP 115/74
[2018-01-31] MEDS: QUEtiapine 25 MG TABLET. PO SCH (15:38)
--- NOTE | 2018-01-31 18:25 | PN ---
DATE: 01/31/2018 SUBJECTIVE: The patient was seen today, met with the staff, chart reviewed. The patient continues to be depressed, also admits to be feeling angry, decreased appetite. OBSERVATION: Temperature 97.3, blood pressure 117/72, pulse 60, respiration 18, O2 sat 95%. Slept about 8 hours last night. The patient is having difficulty because of his inability to communicate. The patient understands what is being said, most of his answers are monosyllabic. The patient does admit. He is very depressed, would not answer whether he has any negative thoughts. The patient admits to feeling angry and also wanting to change of his medications. The patient's current medication includes Seroquel 12.5 mg daily and 25 mg at night, Celexa 30 mg daily. The patient is not having any side effects, not having any major medical complaints. ASSESSMENT: 1. Bipolar disorder type 1, depressed with psychotic features. 2. Major neurocognitive disorder, vascular with delusions and depression. 3. Impulse control disorder, unspecified. PLAN: The patient's Seroquel to be discontinued. We will be started on Abilify 5 mg in the morning and Celexa to be increased to 40 mg daily. Continue with the treatment. DELIA HARMAN MD DR: MELONY/amada JOB#: [id number] / [id number]
[2018-01-31] MEDS: ATORVASTATIN CALCIUM 20 MG TABLET PO SCH (20:08)
[2018-01-31] MEDS: PATCH REMOVAL. MC SCH (21:00)
[2018-02-01 05:52] VITALS: BP 107/68
[2018-02-01] MEDS: ASPIRIN 81 MG TAB.CHEW PO SCH (08:35)
[2018-02-01] MEDS: CARVEDILOL 6.25 MG TABLET PO SCH ×2 (08:36→17:28)
[2018-02-01] MEDS: ARIPiprazole 5 MG TABLET PO SCH (08:37)
[2018-02-01] MEDS: SPIRONOLACTONE 25 MG TABLET PO SCH (08:37)
[2018-02-01] MEDS: SMZ/TMP 800/160MG TABLET. PO SCH ×2 (08:37→19:47)
[2018-02-01] MEDS: LACTOBACILLUS RHAMNOSUS GG 1 CAPSULE. PO SCH ×2 (08:38→19:47)
[2018-02-01] MEDS: MAGNESIUM OXIDE 400 MG TABLET PO SCH (08:38)
[2018-02-01] MEDS: APIXABAN 5 MG TABLET. PO SCH ×2 (08:38→19:47)
[2018-02-01] MEDS: CITALOPRAM 20 MG TABLET. PO SCH (08:38)
[2018-02-01] MEDS: BACLOFEN 10 MG TABLET PO SCH ×3 (08:38→19:47)
[2018-02-01] MEDS: LIDOCAINE (700MG/PATCH) PATCH. TD SCH (08:39)
[2018-02-01] MEDS: NICOTINE 14MG PATCH. TD SCH (08:39)
[2018-02-01] MEDS: LOSARTAN 50 MG TABLET. PO SCH (08:39)
[2018-02-01] MEDS: GABAPENTIN 400 MG CAPSULE. PO SCH ×4 (08:39→19:47)
[2018-02-01] MEDS: DRONABINOL 2.5 MG CAPSULE PO SCH ×2 (12:09→17:27)
[2018-02-01 12:26] LABS: BASO # 0.1 x10^3/uL (0.0-0.2); BASO % 1 % (0-3); EOS # 0.5 x10^3/uL (0.0-0.7); EOS % 6 % (0-3); HEMATOCRIT 44.1 % (39.0-53.0); LYMPH # 1.2 x10^3/uL (1.0-4.8); LYMPH % 14 % (24-48); MEAN CORPUSCULAR HEMOGLOBIN 30 pg (25-35); MEAN CORPUSCULAR HGB CONC 34 g/dL (31-37); MEAN CORPUSCULAR VOLUME 89 fL (79-100); MONO # 0.8 x10^3/uL (0.0-1.1); MONO % 9 % (0-9); NEUT # 6.3 x10^3uL (1.8-7.7); NEUT % 72 % (31-73); PLATELET COUNT 320 x10^3/uL (140-400); RED BLOOD COUNT 4.94 x10^6/uL (4.30-5.70); RED CELL DISTRIBUTION WIDTH 14.2 % (11.5-14.5); WHITE BLOOD COUNT 8.8 x10^3/uL (4.0-11.0)
[2018-02-01 12:52] LABS: ALBUMIN 3.2 g/dL (3.4-5.0); ALBUMIN/GLOBULIN RATIO 0.7 (1.0-1.7); CALCIUM 9.2 mg/dL (8.5-10.1); CREATININE 1.1 mg/dL (0.7-1.3); GFR 68.8; POTASSIUM 4.1 mmol/L (3.5-5.1); TOTAL BILIRUBIN 0.4 mg/dL (0.2-1.0); TOTAL PROTEIN 7.5 g/dL (6.4-8.2)
[2018-02-01 16:12] VITALS: BP 122/70
[2018-02-01] MEDS: PATCH REMOVAL. MC SCH (19:47)
[2018-02-01] MEDS: ATORVASTATIN CALCIUM 20 MG TABLET PO SCH (19:47)
[2018-02-01] MEDS: traMADol 50 MG TABLET PO PRN (20:50)
[2018-02-02 05:45] VITALS: BP 122/80
[2018-02-02] MEDS: ASPIRIN 81 MG TAB.CHEW PO SCH (08:18)
[2018-02-02] MEDS: CARVEDILOL 6.25 MG TABLET PO SCH ×2 (08:18→17:16)
[2018-02-02] MEDS: SMZ/TMP 800/160MG TABLET. PO SCH ×2 (08:19→19:58)
[2018-02-02] MEDS: ARIPiprazole 5 MG TABLET PO SCH (08:19)
[2018-02-02] MEDS: CITALOPRAM 20 MG TABLET. PO SCH (08:19)
[2018-02-02] MEDS: SPIRONOLACTONE 25 MG TABLET PO SCH (08:19)
[2018-02-02] MEDS: LACTOBACILLUS RHAMNOSUS GG 1 CAPSULE. PO SCH ×2 (08:20→19:58)
[2018-02-02] MEDS: MAGNESIUM OXIDE 400 MG TABLET PO SCH (08:20)
[2018-02-02] MEDS: LIDOCAINE (700MG/PATCH) PATCH. TD SCH (08:20)
[2018-02-02] MEDS: GABAPENTIN 400 MG CAPSULE. PO SCH ×4 (08:20→19:57)
[2018-02-02] MEDS: NICOTINE 14MG PATCH. TD SCH (08:20)
[2018-02-02] MEDS: APIXABAN 5 MG TABLET. PO SCH ×2 (08:20→19:57)
[2018-02-02] MEDS: LOSARTAN 50 MG TABLET. PO SCH (08:20)
[2018-02-02] MEDS: BACLOFEN 10 MG TABLET PO SCH ×3 (08:20→19:57)
[2018-02-02] MEDS: traMADol 50 MG TABLET PO PRN (08:25)
--- NOTE | 2018-02-02 12:22 | PN ---
DATE: 02/02/2018 SUBJECTIVE: The patient was seen today, met with the staff, chart reviewed. The patient's behavior remains the same, still feels depressed. No major behavior problems. OBSERVATION: VITAL SIGNS: Temperature 98.1, blood pressure 122/80, pulse 70, respiration 18, O2 sat 93%. Slept about 7 hours last night. The patient's appetite is fair. MEDICATIONS: Reviewed. LABORATORY DATA: I also reviewed the labs. ASSESSMENT: 1. Bipolar disorder type 1, depressed with psychotic features. 2. Major neurocognitive disorder, vascular with delusions and depression. PLAN: To continue with the treatment. The patient is not presenting with any major medical issues at this time. DELIA HARMAN MD DR: MELONY/amada JOB#: [id number] / [id number]
[2018-02-02] MEDS: DRONABINOL 2.5 MG CAPSULE PO SCH ×2 (12:29→17:15)
[2018-02-02] MEDS: MORPHINE SULFATE 10 MG/5 ML ORAL SOLUTION. PO PRN ×2 (13:20→17:16)
[2018-02-02 16:24] VITALS: BP 124/73
[2018-02-02] MEDS: ATORVASTATIN CALCIUM 20 MG TABLET PO SCH (19:59)
[2018-02-02] MEDS: PATCH REMOVAL. MC SCH (19:59)
[2018-02-03] MEDS: traMADol 50 MG TABLET PO PRN (05:30)
[2018-02-03 05:49] VITALS: BP 108/69
[2018-02-03] MEDS: CARVEDILOL 6.25 MG TABLET PO SCH ×2 (08:00→17:15)
[2018-02-03] MEDS: MORPHINE SULFATE 10 MG/5 ML ORAL SOLUTION. PO PRN ×2 (08:24→20:26)
[2018-02-03] MEDS: LOSARTAN 50 MG TABLET. PO SCH (09:00)
--- NOTE | 2018-02-03 09:47 | RAD ---
EXAM: Abdomen sonogram. HISTORY: Elevated liver function laboratory values. TECHNIQUE: Sonographic imaging of the abdomen was performed. COMPARISON: CT dated 01/23/2018. FINDINGS: The exam is limited due to and bowel gas and body habitus. The liver is normal in size. No focal hepatic lesion is seen. The gallbladder is surgically absent. The common bile duct is normal in caliber. The visualized portions of the right kidney are unremarkable. The right renal length cannot be assessed due to aforementioned study limitations. The pancreas, aorta and inferior vena cava are also obscured. IMPRESSION: 1. Significantly limited exam due to bowel gas and body habitus. The midline structures and majority of the right kidney are obscured. 2. Cholecystectomy. Electronically signed by: Brooke Perea MD (02/03/2018 9:43 AM) [id number]
[2018-02-03] MEDS: ARIPiprazole 5 MG TABLET PO SCH (09:58)
[2018-02-03] MEDS: SPIRONOLACTONE 25 MG TABLET PO SCH (09:58)
[2018-02-03] MEDS: LACTOBACILLUS RHAMNOSUS GG 1 CAPSULE. PO SCH ×2 (09:58→19:34)
[2018-02-03] MEDS: ASPIRIN 81 MG TAB.CHEW PO SCH (09:58)
[2018-02-03] MEDS: CITALOPRAM 20 MG TABLET. PO SCH (09:58)
[2018-02-03] MEDS: SMZ/TMP 800/160MG TABLET. PO SCH ×2 (09:58→19:34)
[2018-02-03] MEDS: LIDOCAINE (700MG/PATCH) PATCH. TD SCH (09:59)
[2018-02-03] MEDS: NICOTINE 14MG PATCH. TD SCH (09:59)
[2018-02-03] MEDS: BACLOFEN 10 MG TABLET PO SCH ×3 (09:59→19:35)
[2018-02-03] MEDS: APIXABAN 5 MG TABLET. PO SCH ×2 (09:59→19:34)
[2018-02-03] MEDS: MAGNESIUM OXIDE 400 MG TABLET PO SCH (09:59)
[2018-02-03] MEDS: GABAPENTIN 400 MG CAPSULE. PO SCH ×4 (09:59→19:35)
[2018-02-03] MEDS: DRONABINOL 2.5 MG CAPSULE PO SCH ×2 (12:27→17:15)
[2018-02-03 16:06] VITALS: BP 119/77
--- NOTE | 2018-02-03 19:00 | PDOC ---
Exam Note: Marc Note: Please also refer to the separate dictated note~for this date of service dictated separately.~Patient seen individually. Discussed the patient with Nursing staff reviewed the chart.~Reviewed interim history and current functioning. Reviewed vital signs,~Labs/ Radiology~and current medications noted below. Continue current treatment with the changes noted in the dictated addendum note Assessment: Vital Signs: Vital Signs Date Time Temp Pulse Resp B/P (MAP) Pulse Ox O2 Delivery O2 Flow Rate FiO2 02/03/18 16:06 97.9 61 18 119/77 (91) 96 02/02/18 05:45 Room Air I&O Intake and Output 02/03/18 07:00 Intake Total 1200 ml Balance 1200 ml Intake Oral 1200 ml # Bowel Movements 1 Current Medications: Meds: Current Medications Acetaminophen (Tylenol) 650 mg PRN Q6HRS PRN PO PAIN / TEMP; Start 01/22/18 at 20:15 Multi-Ingredient Ointment (Analgesic Davis) 1 luc PRN QID PRN TP MUSCLE PAIN; Start 01/22/18 at 20:15 Al Hydroxide/Mg Hydroxide (Mylanta Plus Xs) 15 ml PRN AFTMEALHC PRN PO DYSPEPSIA; Start 01/22/18 at 20:15 Magnesium Hydroxide (Milk Of Magnesia) 2,400 mg PRN QHS PRN PO CONSTIPATION Last administered on 01/29/18at 17:21; Start 01/22/18 at 20:15 Nicotine (Nicoderm Cq 14mg) 1 patch DAILY TD Last administered on 02/03/18at 09 :59; Start 01/23/18 at 09:00 Citalopram Hydrobromide (CeleXA) 30 mg DAILY PO Last administered on at 09:03; Start 01/23/18 at 09:00; Stop 01/31/18 at 17:40; Status DC Gabapentin (Neurontin) 400 mg QID PO Last administered on 02/03/18at 17:15; Start 01/23/18 at 09:00 Losartan Potassium (Cozaar) 50 mg DAILY PO Last administered on 02/02/18at 08: 20; Start 01/23/18 at 09:00 Tramadol HCl (Ultram) 50 mg PRN Q8HRS PRN PO PAIN Last administered on at 05:30; Start 01/22/18 at 23:15 Acetaminophen (Tylenol) 500 mg PRN Q6HRS PRN PO PAIN; Start 01/22/18 at 23:15 Apixaban (Eliquis) 5 mg BID PO Last administered on 02/03/18at 09:59; Start at 09:00 Aspirin (Children'S Aspirin) 81 mg DAILY08 PO Last administered on 02/03/18at 09:58; Start 01/23/18 at 08:00 Atorvastatin Calcium (Lipitor) 40 mg QHS PO Last administered on 02/02/18at 19: 59; Start 01/23/18 at 21:00 Baclofen (Lioresal) 10 mg TID PO Last administered on 02/03/18at 13:43; Start 01/23/18 at 09:00 Carvedilol (Coreg) 6.25 mg BIDWMEALS PO Last administered on 02/02/18 17:16; Start 01/23/18 at 08:00 Magnesium Oxide (Magnesium Oxide) 400 mg DAILY PO Last administered on at 09:59; Start 01/23/18 at 09:00 Quetiapine Fumarate (SEROquel) 12.5 mg DAILY@1500 PO Last administered on 01/31at 15:38; Start 01/23/18 at 15:00; Stop 01/31/18 at 17:40; Status DC Quetiapine Fumarate (SEROquel) 25 mg QHS PO Last administered on 01/30/18at 19: 16; Start 01/23/18 at 21:00; Stop 01/31/18 at 17:40; Status DC Spironolactone (Aldactone) 25 mg DAILY PO Last administered on 02/03/18at 09:58 ; Start 01/23/18 at 09:00 Vitamin D (Vitamin D3) 50,000 unit WEEKLY PO ; Start 01/30/18 at 09:00; Stop 01/30/18 at 09:00; Status DC Iohexol (Omnipaque 240 Mg/ml) 50 ml STK-MED ONCE .ROUTE ; Start 01/23/18 at 14: 34; Stop 01/23/18 at 14:35; Status DC Iohexol (Omnipaque 300 Mg/ml) 75 ml 1X ONCE IV Last administered on at 16:02; Start 01/23/18 at 16:00; Stop 01/23/18 at 16:01; Status DC Vitamin D (Vitamin D3) 50,000 unit WEEKLY PO Last administered on 01/30/18at 09 :04; Start 01/23/18 at 16:15 Morphine Sulfate (Morphine Oral Solution) 5 mg PRN Q4HRS PRN PO PAIN Last administered on 02/03/18 08:24; Start 01/23/18 at 18:00 Lidocaine (Lidoderm) 1 patch DAILY TD Last administered on 01/30/18 08:57; Start 01/24/18 at 09:00; Stop 01/30/18 at 16:05; Status DC Miscellaneous (Lidoderm Patch Removal) 1 ea QHS MC Last administered on 19:23; Start 01/23/18 at 21:00; Stop 01/26/18 at 13:37; Status DC Lidocaine (Lidoderm) 1 patch DAILY TD Last administered on 02/03/18at 09:59; Start 01/26/18 at 09:00 Miscellaneous (Lidoderm Patch Removal) 2 ea QHS MC Last administered on 19:59; Start 01/25/18 at 21:00 Ceftriaxone Sodium 1 gm/ Sodium Chloride 50 ml @ 100 mls/hr Q24H IV Last administered on 01/26/18at 17:10; Start 01/26/18 at 17:00; Stop 01/27/18 at 13 :02; Status DC Trimethoprim/ Sulfamethoxazole (Bactrim Ds) 1 tab BID PO Last administered on 02/03/18at 09:58; Start 01/27/18 at 21:00; Stop 02/04/18 at 20:59 Lactobacillus Rhamnosus (Culturelle) 1 cap BID PO Last administered on 09:58; Start 01/27/18 at 21:00 Dronabinol (Marinol) 2.5 mg BIDACLD PO Last administered on 02/03/18 17:15; Start 01/28/18 at 16:30 Citalopram Hydrobromide (CeleXA) 40 mg DAILY PO Last administered on at 09:58; Start 02/01/18 at 09:00 Aripiprazole (Abilify) 5 mg DAILY PO Last administered on 02/03/18at 09:58; Start 02/01/18 at 09:00 Active Scripts Active Reported Acetaminophen 325 Mg/10.15 Ml Solution 500 Mg PO PRN Q6HRS PRN Tramadol Hcl (Tramadol HCl) 50 Mg Tablet 50 Mg PO PRN Q8HRS PRN Seroquel (Quetiapine Fumarate) 25 Mg Tablet 25 Mg PO QHS Seroquel (Quetiapine Fumarate) 25 Mg Tablet 12.5 Mg PO DAILY@1500 Magnesium Oxide 400 Mg Tablet 400 Mg PO DAILY Losartan Potassium 50 Mg Tablet 50 Mg PO DAILY Gabapentin 100 Mg Capsule 400 Mg PO QID Eliquis (Apixaban) 5 Mg Tablet 5 Mg PO BID Celexa (Citalopram Hydrobromide) 20 Mg Tablet 30 Mg PO DAILY Carvedilol 6.25 Mg Tablet 6.25 Mg PO BID Baclofen 10 Mg Tablet 10 Mg PO TID Atorvastatin Calcium 40 Mg Tablet 40 Mg PO QHS Aspirin 81 Mg Tab.chew 81 Mg PO DAILY Aldactone (Spironolactone) 25 Mg Tablet 25 Mg PO DAILY I have reviewed the current psychotropics carefully including drug interactions. Risk benefit ratio favors no change other than as noted in my dictated progress note. Diagnosis: Problems: (1) Anxiety disorder (2) Schizoaffective disorder, bipolar type (3) Dementia, vascular, with delusions (4) Dementia, vascular, with depression GUADALUPE DELGADO MD Feb 03, 2018 19:00
[2018-02-03] MEDS: PATCH REMOVAL. MC SCH (19:34)
[2018-02-03] MEDS: ATORVASTATIN CALCIUM 20 MG TABLET PO SCH (19:35)
[2018-02-04 05:50] VITALS: BP 113/72
[2018-02-04 07:17] LABS: ALBUMIN 3.1 g/dL (3.4-5.0); ALBUMIN/GLOBULIN RATIO 0.8 (1.0-1.7); CALCIUM 8.8 mg/dL (8.5-10.1); CREATININE 1.1 mg/dL (0.7-1.3); GFR 68.8; POTASSIUM 4.3 mmol/L (3.5-5.1); TOTAL BILIRUBIN 0.4 mg/dL (0.2-1.0); TOTAL PROTEIN 7.2 g/dL (6.4-8.2)
[2018-02-04] MEDS: MAGNESIUM OXIDE 400 MG TABLET PO SCH (08:20)
[2018-02-04] MEDS: LACTOBACILLUS RHAMNOSUS GG 1 CAPSULE. PO SCH ×2 (08:21→19:53)
[2018-02-04] MEDS: SPIRONOLACTONE 25 MG TABLET PO SCH (08:21)
[2018-02-04] MEDS: ASPIRIN 81 MG TAB.CHEW PO SCH (08:21)
[2018-02-04] MEDS: APIXABAN 5 MG TABLET. PO SCH ×2 (08:21→19:53)
[2018-02-04] MEDS: GABAPENTIN 400 MG CAPSULE. PO SCH ×4 (08:21→19:54)
[2018-02-04] MEDS: LOSARTAN 50 MG TABLET. PO SCH (08:21)
[2018-02-04] MEDS: CITALOPRAM 20 MG TABLET. PO SCH (08:22)
[2018-02-04] MEDS: SMZ/TMP 800/160MG TABLET. PO SCH (08:22)
[2018-02-04] MEDS: BACLOFEN 10 MG TABLET PO SCH ×3 (08:22→19:53)
[2018-02-04] MEDS: ARIPiprazole 5 MG TABLET PO SCH (08:22)
[2018-02-04] MEDS: CARVEDILOL 6.25 MG TABLET PO SCH ×2 (08:22→16:55)
[2018-02-04] MEDS: LIDOCAINE (700MG/PATCH) PATCH. TD SCH (08:23)
[2018-02-04] MEDS: NICOTINE 14MG PATCH. TD SCH (08:23)
[2018-02-04] MEDS: VITS A & D/LANOLIN TOPICAL OINTMENT 56GM TUBE. TP SCH ×3 (09:00→19:57)
[2018-02-04] MEDS: DRONABINOL 2.5 MG CAPSULE PO SCH ×2 (11:32→16:55)
[2018-02-04] MEDS: MORPHINE SULFATE 10 MG/5 ML ORAL SOLUTION. PO PRN ×2 (12:16→20:00)
[2018-02-04 15:43] VITALS: BP 134/72
[2018-02-04] MEDS: traMADol 50 MG TABLET PO PRN (17:04)
--- NOTE | 2018-02-04 18:58 | PDOC ---
Exam Note: Marc Note: Please also refer to the separate dictated note~for this date of service dictated separately.~Patient seen individually. Discussed the patient with Nursing staff reviewed the chart.~Reviewed interim history and current functioning. Reviewed vital signs,~Labs/ Radiology~and current medications noted below. Continue current treatment with the changes noted in the dictated addendum note Assessment: Vital Signs: Vital Signs Date Time Temp Pulse Resp B/P (MAP) Pulse Ox O2 Delivery O2 Flow Rate FiO2 02/04/18 18:07 18 02/04/18 16:55 77 134/72 02/04/18 15:43 98.0 94 Room Air I&O Intake and Output 02/04/18 07:00 Intake Total 720 ml Balance 720 ml Intake Oral 720 ml Labs: Laboratory Tests Test 02/04/18 06:51 Sodium Level 137 mmol/L (136-145) Potassium Level 4.3 mmol/L (3.5-5.1) Chloride Level 100 mmol/L (98-107) Carbon Dioxide Level 30 mmol/L (21-32) Anion Gap 7 (6-14) Blood Urea Nitrogen 23 mg/dL (8-26) Creatinine 1.1 mg/dL (0.7-1.3) Estimated GFR (Cockcroft-Gault) 68.8 BUN/Creatinine Ratio 21 (6-20) H Glucose Level 163 mg/dL (70-99) H Calcium Level 8.8 mg/dL (8.5-10.1) Total Bilirubin 0.4 mg/dL (0.2-1.0) Aspartate Amino Transferase (AST) 48 U/L (15-37) H Alanine Aminotransferase (ALT) 127 U/L (16-63) H Alkaline Phosphatase 173 U/L (46-116) H Total Protein 7.2 g/dL (6.4-8.2) Albumin 3.1 g/dL (3.4-5.0) L Albumin/Globulin Ratio 0.8 (1.0-1.7) L Current Medications: Meds: Current Medications Acetaminophen (Tylenol) 650 mg PRN Q6HRS PRN PO PAIN / TEMP; Start 01/22/18 at 20:15 Multi-Ingredient Ointment (Analgesic Jennings) 1 luc PRN QID PRN TP MUSCLE PAIN; Start 01/22/18 at 20:15 Al Hydroxide/Mg Hydroxide (Mylanta Plus Xs) 15 ml PRN AFTMEALHC PRN PO DYSPEPSIA; Start 01/22/18 at 20:15 Magnesium Hydroxide (Milk Of Magnesia) 2,400 mg PRN QHS PRN PO CONSTIPATION Last administered on 01/29/18 17:21; Start 01/22/18 at 20:15 Nicotine (Nicoderm Cq 14mg) 1 patch DAILY TD Last administered on 02/04/18 08 :23; Start 01/23/18 at 09:00 Citalopram Hydrobromide (CeleXA) 30 mg DAILY PO Last administered on 09:03; Start 01/23/18 at 09:00; Stop 01/31/18 at 17:40; Status DC Gabapentin (Neurontin) 400 mg QID PO Last administered on 02/04/18 16:56; Start 01/23/18 at 09:00 Losartan Potassium (Cozaar) 50 mg DAILY PO Last administered on 02/04/18 08: 21; Start 01/23/18 at 09:00 Tramadol HCl (Ultram) 50 mg PRN Q8HRS PRN PO PAIN Last administered on 17:04; Start 01/22/18 at 23:15 Acetaminophen (Tylenol) 500 mg PRN Q6HRS PRN PO PAIN; Start 01/22/18 at 23:15 Apixaban (Eliquis) 5 mg BID PO Last administered on 02/04/18 08:21; Start at 09:00 Aspirin (Children'S Aspirin) 81 mg DAILY08 PO Last administered on 02/04/18 08:21; Start 01/23/18 at 08:00 Atorvastatin Calcium (Lipitor) 40 mg QHS PO Last administered on 02/03/18 19: 35; Start 01/23/18 at 21:00 Baclofen (Lioresal) 10 mg TID PO Last administered on 02/04/18 12:15; Start 01/23/18 at 09:00 Carvedilol (Coreg) 6.25 mg BIDWMEALS PO Last administered on 02/04/18 16:55; Start 01/23/18 at 08:00 Magnesium Oxide (Magnesium Oxide) 400 mg DAILY PO Last administered on 11/27/ 18at 08:20; Start 01/23/18 at 09:00 Quetiapine Fumarate (SEROquel) 12.5 mg DAILY@1500 PO Last administered on 01/31at 15:38; Start 01/23/18 at 15:00; Stop 01/31/18 at 17:40; Status DC Quetiapine Fumarate (SEROquel) 25 mg QHS PO Last administered on 01/30/18at 19: 16; Start 01/23/18 at 21:00; Stop 01/31/18 at 17:40; Status DC Spironolactone (Aldactone) 25 mg DAILY PO Last administered on 02/04/18at 08:21 ; Start 01/23/18 at 09:00 Vitamin D (Vitamin D3) 50,000 unit WEEKLY PO ; Start 01/30/18 at 09:00; Stop 01/30/18 at 09:00; Status DC Iohexol (Omnipaque 240 Mg/ml) 50 ml STK-MED ONCE .ROUTE ; Start 01/23/18 at 14: 34; Stop 01/23/18 at 14:35; Status DC Iohexol (Omnipaque 300 Mg/ml) 75 ml 1X ONCE IV Last administered on at 16:02; Start 01/23/18 at 16:00; Stop 01/23/18 at 16:01; Status DC Vitamin D (Vitamin D3) 50,000 unit WEEKLY PO Last administered on 01/30/18at 09 :04; Start 01/23/18 at 16:15 Morphine Sulfate (Morphine Oral Solution) 5 mg PRN Q4HRS PRN PO PAIN Last administered on 02/04/18at 12:16; Start 01/23/18 at 18:00 Lidocaine (Lidoderm) 1 patch DAILY TD Last administered on 01/30/18at 08:57; Start 01/24/18 at 09:00; Stop 01/30/18 at 16:05; Status DC Miscellaneous (Lidoderm Patch Removal) 1 ea QHS MC Last administered on at 19:23; Start 01/23/18 at 21:00; Stop 01/26/18 at 13:37; Status DC Lidocaine (Lidoderm) 1 patch DAILY TD Last administered on 02/04/18at 08:23; Start 01/26/18 at 09:00 Miscellaneous (Lidoderm Patch Removal) 2 ea QHS MC Last administered on at 19:34; Start 01/25/18 at 21:00 Ceftriaxone Sodium 1 gm/ Sodium Chloride 50 ml @ 100 mls/hr Q24H IV Last administered on 01/26/18at 17:10; Start 01/26/18 at 17:00; Stop 01/27/18 at 13 :02; Status DC Trimethoprim/ Sulfamethoxazole (Bactrim Ds) 1 tab BID PO Last administered on 02/04/18at 08:22; Start 01/27/18 at 21:00; Stop 02/04/18 at 20:59 Lactobacillus Rhamnosus (Culturelle) 1 cap BID PO Last administered on at 08:21; Start 01/27/18 at 21:00 Dronabinol (Marinol) 2.5 mg BIDACLD PO Last administered on 02/04/18at 16:55; Start 01/28/18 at 16:30 Citalopram Hydrobromide (CeleXA) 40 mg DAILY PO Last administered on at 08:22; Start 02/01/18 at 09:00 Aripiprazole (Abilify) 5 mg DAILY PO Last administered on 02/04/18at 08:22; Start 02/01/18 at 09:00 Vitamin A/Vitamin D (Vitamin A & D Ointment) 1 luc TID TP Last administered on 02/04/18at 12:13; Start 02/04/18 at 09:00 Mirtazapine (Remeron) 7.5 mg QHS PO ; Start 02/04/18 at 21:00 Active Scripts Active Reported Acetaminophen 325 Mg/10.15 Ml Solution 500 Mg PO PRN Q6HRS PRN Tramadol Hcl (Tramadol HCl) 50 Mg Tablet 50 Mg PO PRN Q8HRS PRN Seroquel (Quetiapine Fumarate) 25 Mg Tablet 25 Mg PO QHS Seroquel (Quetiapine Fumarate) 25 Mg Tablet 12.5 Mg PO DAILY@1500 Magnesium Oxide 400 Mg Tablet 400 Mg PO DAILY Losartan Potassium 50 Mg Tablet 50 Mg PO DAILY Gabapentin 100 Mg Capsule 400 Mg PO QID Eliquis (Apixaban) 5 Mg Tablet 5 Mg PO BID Celexa (Citalopram Hydrobromide) 20 Mg Tablet 30 Mg PO DAILY Carvedilol 6.25 Mg Tablet 6.25 Mg PO BID Baclofen 10 Mg Tablet 10 Mg PO TID Atorvastatin Calcium 40 Mg Tablet 40 Mg PO QHS Aspirin 81 Mg Tab.chew 81 Mg PO DAILY Aldactone (Spironolactone) 25 Mg Tablet 25 Mg PO DAILY I have reviewed the current psychotropics carefully including drug interactions. Risk benefit ratio favors no change other than as noted in my dictated progress note. Diagnosis: Problems: (1) Anxiety disorder (2) Schizoaffective disorder, bipolar type (3) Dementia, vascular, with delusions (4) Dementia, vascular, with depression (5) Impulse control disorder GUADALUPE DELGADO MD Feb 04, 2018 18:58
[2018-02-04] MEDS: PATCH REMOVAL. MC SCH (19:53)
[2018-02-04] MEDS: ATORVASTATIN CALCIUM 20 MG TABLET PO SCH (19:54)
[2018-02-04] MEDS: MIRTAZAPINE 7.5 MG TABLET. PO SCH (19:57)
--- NOTE | 2018-02-05 02:18 | PN ---
DATE: 02/03/2018 This late entry for 02/03/2018 covers elements not covered in my initial note. SUBJECTIVE: I met with the patient in the evening. I also reviewed information with Dr. Lopez, who had covered for me on the patient over the past 1 week. Per nursing report, the patient has been a little more verbal and talkative. He slept 7 hours previous night, less agitated, compliant with medications. Appetite still remains poor, but is showing some improvement. REVIEW OF SYSTEMS: Ambulation impaired, in wheelchair. No CV, , pulmonary, eye, ENT system symptoms on review. Reliability poor. MENTAL STATUS EXAM: Oriented to himself. Insight, judgment, recent and remote memory, attention, concentration, fund of knowledge poor, consistent with his diagnosis. IMPRESSION: Major neurocognitive disorder, multifactorial vascular secondary to past drug abuse with delusion, depression, behavioral disturbance, poor appetite, status post cerebrovascular accident, aphasia, hard of hearing, urinary tract infection, being treated. PLAN: Continue Celexa 40 mg a day, Abilify 5 mg a day, Marinol 2.5 mg b.i.d. to help stimulate appetite. May consider adding Remeron to help stimulate appetite and to augment the Celexa as well. We will reassess in a day or so. GUADALUPE DELGADO MD DR: RICHY/amada JOB#: [id number] / [id number]
[2018-02-05 05:57] VITALS: BP 105/69
[2018-02-05] MEDS: CARVEDILOL 6.25 MG TABLET PO SCH ×2 (08:00→16:42)
[2018-02-05] MEDS: ASPIRIN 81 MG TAB.CHEW PO SCH (08:43)
[2018-02-05] MEDS: SPIRONOLACTONE 25 MG TABLET PO SCH (08:44)
[2018-02-05] MEDS: ARIPiprazole 5 MG TABLET PO SCH (08:44)
[2018-02-05] MEDS: LOSARTAN 50 MG TABLET. PO SCH (08:45)
[2018-02-05] MEDS: LACTOBACILLUS RHAMNOSUS GG 1 CAPSULE. PO SCH ×2 (08:45→19:58)
[2018-02-05] MEDS: APIXABAN 5 MG TABLET. PO SCH ×2 (08:45→19:58)
[2018-02-05] MEDS: CITALOPRAM 20 MG TABLET. PO SCH (08:45)
[2018-02-05] MEDS: LIDOCAINE (700MG/PATCH) PATCH. TD SCH (08:46)
[2018-02-05] MEDS: GABAPENTIN 400 MG CAPSULE. PO SCH ×4 (08:46→19:58)
[2018-02-05] MEDS: MAGNESIUM OXIDE 400 MG TABLET PO SCH (08:46)
[2018-02-05] MEDS: BACLOFEN 10 MG TABLET PO SCH ×4 (08:46→19:58)
[2018-02-05] MEDS: NICOTINE 14MG PATCH. TD SCH (08:47)
[2018-02-05] MEDS: VITS A & D/LANOLIN TOPICAL OINTMENT 56GM TUBE. TP SCH ×3 (08:47→19:58)
[2018-02-05] MEDS: MORPHINE SULFATE 10 MG/5 ML ORAL SOLUTION. PO PRN ×3 (08:57→19:59)
[2018-02-05] MEDS: DRONABINOL 2.5 MG CAPSULE PO SCH ×2 (11:36→16:41)
[2018-02-05 16:35] VITALS: BP 120/74
[2018-02-05] MEDS: PATCH REMOVAL. MC SCH (19:58)
[2018-02-05] MEDS: MIRTAZAPINE 7.5 MG TABLET. PO SCH (19:58)
[2018-02-05] MEDS ORDERED: MIRTAZAPINE 7.5 MG TABLET. PO SCH (21:00)
--- NOTE | 2018-02-05 21:50 | PN ---
DATE: 02/04/2018 PSYCHIATRIC PROGRESS NOTE This late entry 02/04/2018 covers elements not covered in my initial note. SUBJECTIVE: I met with the patient in the evening. The patient slept 7 hours previous night. He has not been agitated, compliant with medications. Appetite is better. He ate some lunch and dinner, but nothing for breakfast. REVIEW OF SYSTEMS: Ambulation impaired, in wheelchair. No CV, , pulmonary, eye system symptoms on review. Reliability poor. He does have expressive aphasia. MENTAL STATUS EXAM: Oriented to himself, situation at times. Speech positive for expressive aphasia. Abstraction fair, computation impaired, language function intact, attention span short. Mood and affect somewhat dysphoric, but smiling later in the visit with me, anxious. No active suicidal or homicidal ideation. LABORATORY DATA: Reviewed. IMPRESSION: Major neurocognitive disorder, probably vascular with depression, delusions, urinary tract infection, anxiety disorder, unspecified. Poor appetite. PLAN: Continue Marinol 2.5 mg b.i.d. for appetite stimulation, Celexa 40 mg a day, Abilify 5 mg a day, start Remeron 7.5 mg p.o. at bedtime to help with his mood, anxiety and help stimulate appetite. GUADALUPE DELGADO MD DR: RICHY/amada JOB#: [id number] / [id number]
[2018-02-05] MEDS: ATORVASTATIN CALCIUM 20 MG TABLET PO SCH (22:39)
--- NOTE | 2018-02-05 22:54 | PDOC ---
Exam Note: Marc Note: Please also refer to the separate dictated note~for this date of service dictated separately.~Patient seen individually. Discussed the patient with Nursing staff reviewed the chart.~Reviewed interim history and current functioning. Reviewed vital signs,~Labs/ Radiology~and current medications noted below. Continue current treatment with the changes noted in the dictated addendum note Assessment: Vital Signs: Vital Signs Date Time Temp Pulse Resp B/P (MAP) Pulse Ox O2 Delivery O2 Flow Rate FiO2 02/05/18 21:00 96 Room Air 02/05/18 18:08 18 02/05/18 16:42 70 120/74 02/05/18 16:35 98.4 I&O Intake and Output 02/05/18 07:00 Intake Total 940 ml Balance 940 ml Intake Oral 940 ml Current Medications: Meds: Current Medications Acetaminophen (Tylenol) 650 mg PRN Q6HRS PRN PO PAIN / TEMP; Start 01/22/18 at 20:15 Multi-Ingredient Ointment (Analgesic [place]) 1 luc PRN QID PRN TP MUSCLE PAIN; Start 01/22/18 at 20:15 Al Hydroxide/Mg Hydroxide (Mylanta Plus Xs) 15 ml PRN AFTMEALHC PRN PO DYSPEPSIA; Start 01/22/18 at 20:15 Magnesium Hydroxide (Milk Of Magnesia) 2,400 mg PRN QHS PRN PO CONSTIPATION Last administered on 01/29/18at 17:21; Start 01/22/18 at 20:15 Nicotine (Nicoderm Cq 14mg) 1 patch DAILY TD Last administered on 02/05/18at 08 :47; Start 01/23/18 at 09:00 Citalopram Hydrobromide (CeleXA) 30 mg DAILY PO Last administered on at 09:03; Start 01/23/18 at 09:00; Stop 01/31/18 at 17:40; Status DC Gabapentin (Neurontin) 400 mg QID PO Last administered on 02/05/18at 19:58; Start 01/23/18 at 09:00 Losartan Potassium (Cozaar) 50 mg DAILY PO Last administered on 02/04/18at 08: 21; Start 01/23/18 at 09:00 Tramadol HCl (Ultram) 50 mg PRN Q8HRS PRN PO PAIN Last administered on 17:04; Start 01/22/18 at 23:15 Acetaminophen (Tylenol) 500 mg PRN Q6HRS PRN PO PAIN; Start 01/22/18 at 23:15 Apixaban (Eliquis) 5 mg BID PO Last administered on 02/05/18 19:58; Start at 09:00 Aspirin (Children'S Aspirin) 81 mg DAILY08 PO Last administered on 02/05/18 08:43; Start 01/23/18 at 08:00 Atorvastatin Calcium (Lipitor) 40 mg QHS PO Last administered on 02/05/18 22: 39; Start 01/23/18 at 21:00 Baclofen (Lioresal) 10 mg TID PO Last administered on 02/05/18 19:58; Start 01/23/18 at 09:00 Carvedilol (Coreg) 6.25 mg BIDWMEALS PO Last administered on 02/05/18 16:42; Start 01/23/18 at 08:00 Magnesium Oxide (Magnesium Oxide) 400 mg DAILY PO Last administered on at 08:46; Start 01/23/18 at 09:00 Quetiapine Fumarate (SEROquel) 12.5 mg DAILY@1500 PO Last administered on 01/31at 15:38; Start 01/23/18 at 15:00; Stop 01/31/18 at 17:40; Status DC Quetiapine Fumarate (SEROquel) 25 mg QHS PO Last administered on 01/30/18at 19: 16; Start 01/23/18 at 21:00; Stop 01/31/18 at 17:40; Status DC Spironolactone (Aldactone) 25 mg DAILY PO Last administered on 02/05/18at 08:44 ; Start 01/23/18 at 09:00 Vitamin D (Vitamin D3) 50,000 unit WEEKLY PO ; Start 01/30/18 at 09:00; Stop 01/30/18 at 09:00; Status DC Iohexol (Omnipaque 240 Mg/ml) 50 ml STK-MED ONCE .ROUTE ; Start 01/23/18 at 14: 34; Stop 01/23/18 at 14:35; Status DC Iohexol (Omnipaque 300 Mg/ml) 75 ml 1X ONCE IV Last administered on 16:02; Start 01/23/18 at 16:00; Stop 01/23/18 at 16:01; Status DC Vitamin D (Vitamin D3) 50,000 unit WEEKLY PO Last administered on 01/30/18 09 :04; Start 01/23/18 at 16:15 Morphine Sulfate (Morphine Oral Solution) 5 mg PRN Q4HRS PRN PO PAIN Last administered on 02/05/18 19:59; Start 01/23/18 at 18:00 Lidocaine (Lidoderm) 1 patch DAILY TD Last administered on 01/30/18 08:57; Start 01/24/18 at 09:00; Stop 01/30/18 at 16:05; Status DC Miscellaneous (Lidoderm Patch Removal) 1 ea QHS MC Last administered on 19:23; Start 01/23/18 at 21:00; Stop 01/26/18 at 13:37; Status DC Lidocaine (Lidoderm) 1 patch DAILY TD Last administered on 02/05/18 08:46; Start 01/26/18 at 09:00 Miscellaneous (Lidoderm Patch Removal) 2 ea QHS MC Last administered on 19:58; Start 01/25/18 at 21:00 Ceftriaxone Sodium 1 gm/ Sodium Chloride 50 ml @ 100 mls/hr Q24H IV Last administered on 01/26/18 17:10; Start 01/26/18 at 17:00; Stop 01/27/18 at 13 :02; Status DC Trimethoprim/ Sulfamethoxazole (Bactrim Ds) 1 tab BID PO Last administered on 02/04/18 08:22; Start 01/27/18 at 21:00; Stop 02/04/18 at 20:59; Status DC Lactobacillus Rhamnosus (Culturelle) 1 cap BID PO Last administered on 19:58; Start 01/27/18 at 21:00 Dronabinol (Marinol) 2.5 mg BIDACLD PO Last administered on 02/05/18 16:41; Start 01/28/18 at 16:30 Citalopram Hydrobromide (CeleXA) 40 mg DAILY PO Last administered on 08:45; Start 02/01/18 at 09:00; Stop 02/05/18 at 12:43; Status DC Aripiprazole (Abilify) 5 mg DAILY PO Last administered on 02/05/18at 08:44; Start 02/01/18 at 09:00 Vitamin A/Vitamin D (Vitamin A & D Ointment) 1 luc TID TP Last administered on 02/05/18at 19:58; Start 02/04/18 at 09:00 Mirtazapine (Remeron) 7.5 mg QHS PO Last administered on 02/05/18at 19:58; Start 02/04/18 at 21:00 Mirtazapine (Remeron) 7.5 mg QHS PO ; Start 02/05/18 at 21:00; Stop 02/05/18 at 21:00; Status DC Duloxetine HCl (Cymbalta) 30 mg DAILY PO ; Start 02/06/18 at 09:00; Stop 02/07 at 13:00 Duloxetine HCl (Cymbalta) 60 mg DAILY PO ; Start 02/08/18 at 09:00 Active Scripts Active Reported Acetaminophen 325 Mg/10.15 Ml Solution 500 Mg PO PRN Q6HRS PRN Tramadol Hcl (Tramadol HCl) 50 Mg Tablet 50 Mg PO PRN Q8HRS PRN Seroquel (Quetiapine Fumarate) 25 Mg Tablet 25 Mg PO QHS Seroquel (Quetiapine Fumarate) 25 Mg Tablet 12.5 Mg PO DAILY@1500 Magnesium Oxide 400 Mg Tablet 400 Mg PO DAILY Losartan Potassium 50 Mg Tablet 50 Mg PO DAILY Gabapentin 100 Mg Capsule 400 Mg PO QID Eliquis (Apixaban) 5 Mg Tablet 5 Mg PO BID Celexa (Citalopram Hydrobromide) 20 Mg Tablet 30 Mg PO DAILY Carvedilol 6.25 Mg Tablet 6.25 Mg PO BID Baclofen 10 Mg Tablet 10 Mg PO TID Atorvastatin Calcium 40 Mg Tablet 40 Mg PO QHS Aspirin 81 Mg Tab.chew 81 Mg PO DAILY Aldactone (Spironolactone) 25 Mg Tablet 25 Mg PO DAILY I have reviewed the current psychotropics carefully including drug interactions. Risk benefit ratio favors no change other than as noted in my dictated progress note. Diagnosis: Problems: (1) Anxiety disorder (2) Schizoaffective disorder, bipolar type (3) Dementia, vascular, with delusions (4) Dementia, vascular, with depression (5) Impulse control disorder GUADALUPE DELGADO MD Feb 05, 2018 22:54
[2018-02-06 05:33] VITALS: BP 123/70
[2018-02-06] MEDS: ARIPiprazole 5 MG TABLET PO SCH (08:30)
[2018-02-06] MEDS: LOSARTAN 50 MG TABLET. PO SCH (08:30)
[2018-02-06] MEDS: ASPIRIN 81 MG TAB.CHEW PO SCH (08:30)
[2018-02-06] MEDS: MAGNESIUM OXIDE 400 MG TABLET PO SCH (08:31)
[2018-02-06] MEDS: GABAPENTIN 400 MG CAPSULE. PO SCH ×4 (08:31→20:15)
[2018-02-06] MEDS: LACTOBACILLUS RHAMNOSUS GG 1 CAPSULE. PO SCH ×2 (08:31→20:15)
[2018-02-06] MEDS: APIXABAN 5 MG TABLET. PO SCH ×2 (08:31→20:15)
[2018-02-06] MEDS: BACLOFEN 10 MG TABLET PO SCH ×3 (08:31→20:15)
[2018-02-06] MEDS: CHOLECALCIFEROL (VITAMIN D3) 50,000 UNIT CAPSULE PO SCH (08:31)
[2018-02-06] MEDS: CARVEDILOL 6.25 MG TABLET PO SCH ×2 (08:31→17:40)
[2018-02-06] MEDS: NICOTINE 14MG PATCH. TD SCH (08:31)
[2018-02-06] MEDS: LIDOCAINE (700MG/PATCH) PATCH. TD SCH (08:32)
[2018-02-06] MEDS: SPIRONOLACTONE 25 MG TABLET PO SCH (08:33)
[2018-02-06] MEDS: DULoxetine HCL 30 MG CAPSULE.DR PO SCH (08:33)
[2018-02-06] MEDS: VITS A & D/LANOLIN TOPICAL OINTMENT 56GM TUBE. TP SCH ×2 (09:00→13:56)
[2018-02-06] MEDS: MORPHINE SULFATE 10 MG/5 ML ORAL SOLUTION. PO PRN ×2 (10:29→17:41)
[2018-02-06] MEDS: DRONABINOL 2.5 MG CAPSULE PO SCH ×2 (11:37→17:40)
[2018-02-06 15:49] VITALS: BP 132/73
[2018-02-06] MEDS: ATORVASTATIN CALCIUM 20 MG TABLET PO SCH (20:14)
[2018-02-06] MEDS: MIRTAZAPINE 7.5 MG TABLET. PO SCH (20:15)
[2018-02-06] MEDS: PATCH REMOVAL. MC SCH (21:00)
--- NOTE | 2018-02-06 22:43 | PDOC ---
Exam Note: Marc Note: Please also refer to the separate dictated note~for this date of service dictated separately.~Patient seen individually. Discussed the patient with Nursing staff reviewed the chart.~Reviewed interim history and current functioning. Reviewed vital signs,~Labs/ Radiology~and current medications noted below. Continue current treatment with the changes noted in the dictated addendum note Assessment: Vital Signs: Vital Signs Date Time Temp Pulse Resp B/P (MAP) Pulse Ox O2 Delivery O2 Flow Rate FiO2 02/06/18 22:41 18 Room Air 02/06/18 17:40 73 132/73 02/06/18 15:49 98.4 99 I&O Intake and Output 02/06/18 07:00 Intake Total 960 ml Balance 960 ml Intake Oral 960 ml # Bowel Movements 1 Current Medications: Meds: Current Medications Acetaminophen (Tylenol) 650 mg PRN Q6HRS PRN PO PAIN / TEMP; Start 01/22/18 at 20:15 Multi-Ingredient Ointment (Analgesic [place]) 1 luc PRN QID PRN TP MUSCLE PAIN; Start 01/22/18 at 20:15 Al Hydroxide/Mg Hydroxide (Mylanta Plus Xs) 15 ml PRN AFTMEALHC PRN PO DYSPEPSIA; Start 01/22/18 at 20:15 Magnesium Hydroxide (Milk Of Magnesia) 2,400 mg PRN QHS PRN PO CONSTIPATION Last administered on 01/29/18at 17:21; Start 01/22/18 at 20:15 Nicotine (Nicoderm Cq 14mg) 1 patch DAILY TD Last administered on 02/06/18at 08 :31; Start 01/23/18 at 09:00 Citalopram Hydrobromide (CeleXA) 30 mg DAILY PO Last administered on at 09:03; Start 01/23/18 at 09:00; Stop 01/31/18 at 17:40; Status DC Gabapentin (Neurontin) 400 mg QID PO Last administered on 02/06/18at 20:15; Start 01/23/18 at 09:00 Losartan Potassium (Cozaar) 50 mg DAILY PO Last administered on 02/06/18at 08: 30; Start 01/23/18 at 09:00 Tramadol HCl (Ultram) 50 mg PRN Q8HRS PRN PO PAIN Last administered on at 17:04; Start 01/22/18 at 23:15 Acetaminophen (Tylenol) 500 mg PRN Q6HRS PRN PO PAIN; Start 01/22/18 at 23:15 Apixaban (Eliquis) 5 mg BID PO Last administered on 02/06/18at 20:15; Start at 09:00 Aspirin (Children'S Aspirin) 81 mg DAILY08 PO Last administered on 02/06/18 08:30; Start 01/23/18 at 08:00 Atorvastatin Calcium (Lipitor) 40 mg QHS PO Last administered on 02/06/18 20: 14; Start 01/23/18 at 21:00 Baclofen (Lioresal) 10 mg TID PO Last administered on 02/06/18 20:15; Start 01/23/18 at 09:00 Carvedilol (Coreg) 6.25 mg BIDWMEALS PO Last administered on 02/06/18at 17:40; Start 01/23/18 at 08:00 Magnesium Oxide (Magnesium Oxide) 400 mg DAILY PO Last administered on at 08:31; Start 01/23/18 at 09:00 Quetiapine Fumarate (SEROquel) 12.5 mg DAILY@1500 PO Last administered on 01/31at 15:38; Start 01/23/18 at 15:00; Stop 01/31/18 at 17:40; Status DC Quetiapine Fumarate (SEROquel) 25 mg QHS PO Last administered on 01/30/18at 19: 16; Start 01/23/18 at 21:00; Stop 01/31/18 at 17:40; Status DC Spironolactone (Aldactone) 25 mg DAILY PO Last administered on 02/06/18at 08:33 ; Start 01/23/18 at 09:00 Vitamin D (Vitamin D3) 50,000 unit WEEKLY PO ; Start 01/30/18 at 09:00; Stop 01/30/18 at 09:00; Status DC Iohexol (Omnipaque 240 Mg/ml) 50 ml STK-MED ONCE .ROUTE ; Start 01/23/18 at 14: 34; Stop 01/23/18 at 14:35; Status DC Iohexol (Omnipaque 300 Mg/ml) 75 ml 1X ONCE IV Last administered on 16:02; Start 01/23/18 at 16:00; Stop 01/23/18 at 16:01; Status DC Vitamin D (Vitamin D3) 50,000 unit WEEKLY PO Last administered on 02/06/18 08 :31; Start 01/23/18 at 16:15 Morphine Sulfate (Morphine Oral Solution) 5 mg PRN Q4HRS PRN PO PAIN Last administered on 02/06/18 17:41; Start 01/23/18 at 18:00 Lidocaine (Lidoderm) 1 patch DAILY TD Last administered on 01/30/18 08:57; Start 01/24/18 at 09:00; Stop 01/30/18 at 16:05; Status DC Miscellaneous (Lidoderm Patch Removal) 1 ea QHS MC Last administered on 19:23; Start 01/23/18 at 21:00; Stop 01/26/18 at 13:37; Status DC Lidocaine (Lidoderm) 1 patch DAILY TD Last administered on 02/06/18 08:32; Start 01/26/18 at 09:00 Miscellaneous (Lidoderm Patch Removal) 2 ea QHS MC Last administered on 21:00; Start 01/25/18 at 21:00 Ceftriaxone Sodium 1 gm/ Sodium Chloride 50 ml @ 100 mls/hr Q24H IV Last administered on 01/26/18 17:10; Start 01/26/18 at 17:00; Stop 01/27/18 at 13 :02; Status DC Trimethoprim/ Sulfamethoxazole (Bactrim Ds) 1 tab BID PO Last administered on 02/04/18 08:22; Start 01/27/18 at 21:00; Stop 02/04/18 at 20:59; Status DC Lactobacillus Rhamnosus (Culturelle) 1 cap BID PO Last administered on 20:15; Start 01/27/18 at 21:00 Dronabinol (Marinol) 2.5 mg BIDACLD PO Last administered on 02/06/18 17:40; Start 01/28/18 at 16:30 Citalopram Hydrobromide (CeleXA) 40 mg DAILY PO Last administered on 08:45; Start 02/01/18 at 09:00; Stop 02/05/18 at 12:43; Status DC Aripiprazole (Abilify) 5 mg DAILY PO Last administered on 02/06/18at 08:30; Start 02/01/18 at 09:00 Vitamin A/Vitamin D (Vitamin A & D Ointment) 1 luc TID TP Last administered on 02/06/18at 13:56; Start 02/04/18 at 09:00 Mirtazapine (Remeron) 7.5 mg QHS PO Last administered on 02/06/18at 20:15; Start 02/04/18 at 21:00 Mirtazapine (Remeron) 7.5 mg QHS PO ; Start 02/05/18 at 21:00; Stop 02/05/18 at 21:00; Status DC Duloxetine HCl (Cymbalta) 30 mg DAILY PO Last administered on 02/06/18at 08:33 ; Start 02/06/18 at 09:00; Stop 02/07/18 at 13:00 Duloxetine HCl (Cymbalta) 60 mg DAILY PO ; Start 02/08/18 at 09:00 Active Scripts Active Reported Acetaminophen 325 Mg/10.15 Ml Solution 500 Mg PO PRN Q6HRS PRN Tramadol Hcl (Tramadol HCl) 50 Mg Tablet 50 Mg PO PRN Q8HRS PRN Seroquel (Quetiapine Fumarate) 25 Mg Tablet 25 Mg PO QHS Seroquel (Quetiapine Fumarate) 25 Mg Tablet 12.5 Mg PO DAILY@1500 Magnesium Oxide 400 Mg Tablet 400 Mg PO DAILY Losartan Potassium 50 Mg Tablet 50 Mg PO DAILY Gabapentin 100 Mg Capsule 400 Mg PO QID Eliquis (Apixaban) 5 Mg Tablet 5 Mg PO BID Celexa (Citalopram Hydrobromide) 20 Mg Tablet 30 Mg PO DAILY Carvedilol 6.25 Mg Tablet 6.25 Mg PO BID Baclofen 10 Mg Tablet 10 Mg PO TID Atorvastatin Calcium 40 Mg Tablet 40 Mg PO QHS Aspirin 81 Mg Tab.chew 81 Mg PO DAILY Aldactone (Spironolactone) 25 Mg Tablet 25 Mg PO DAILY I have reviewed the current psychotropics carefully including drug interactions. Risk benefit ratio favors no change other than as noted in my dictated progress note. Diagnosis: Problems: (1) Anxiety disorder (2) Schizoaffective disorder, bipolar type (3) Dementia, vascular, with delusions (4) Dementia, vascular, with depression (5) Impulse control disorder GUADALUPE DELGADO MD Feb 06, 2018 22:43
[2018-02-07 06:22] VITALS: BP 111/71
[2018-02-07] MEDS: VITS A & D/LANOLIN TOPICAL OINTMENT 56GM TUBE. TP SCH ×4 (06:36→19:18)
[2018-02-07] MEDS: MORPHINE SULFATE 10 MG/5 ML ORAL SOLUTION. PO PRN ×3 (09:39→21:14)
[2018-02-07] MEDS: CARVEDILOL 6.25 MG TABLET PO SCH ×2 (09:40→16:08)
[2018-02-07] MEDS: ASPIRIN 81 MG TAB.CHEW PO SCH (09:40)
[2018-02-07] MEDS: APIXABAN 5 MG TABLET. PO SCH ×2 (09:40→19:17)
[2018-02-07] MEDS: MAGNESIUM OXIDE 400 MG TABLET PO SCH (09:40)
[2018-02-07] MEDS: BACLOFEN 10 MG TABLET PO SCH ×3 (09:40→19:17)
[2018-02-07] MEDS: LOSARTAN 50 MG TABLET. PO SCH (09:41)
[2018-02-07] MEDS: ARIPiprazole 5 MG TABLET PO SCH (09:41)
[2018-02-07] MEDS: LACTOBACILLUS RHAMNOSUS GG 1 CAPSULE. PO SCH ×2 (09:41→19:17)
[2018-02-07] MEDS: SPIRONOLACTONE 25 MG TABLET PO SCH (09:41)
[2018-02-07] MEDS: GABAPENTIN 400 MG CAPSULE. PO SCH ×4 (09:41→19:17)
[2018-02-07] MEDS: DULoxetine HCL 30 MG CAPSULE.DR PO SCH (09:41)
[2018-02-07] MEDS: LIDOCAINE (700MG/PATCH) PATCH. TD SCH (09:42)
[2018-02-07] MEDS: NICOTINE 14MG PATCH. TD SCH (09:42)
[2018-02-07] MEDS: DRONABINOL 2.5 MG CAPSULE PO SCH ×2 (11:50→16:08)
--- NOTE | 2018-02-07 13:11 | PN ---
DATE: 02/05/2018 PSYCHIATRIC PROGRESS NOTE This late entry 02/05/2018 covers elements not covered in my initial note. SUBJECTIVE: I met with the patient in the evening and staffed at treatment team meeting with the entire team earlier in the day. The patient slept 8-1/2 hours previous evening. Reviewed his history at length. He is compliant with his medication, drowsy during the day, possibly due to morphine he receives for pain. Appetite has improved 70%. REVIEW OF SYSTEMS: Ambulation impaired, in Broda chair. No CV, , pulmonary, eye system symptoms on review. Reliability poor. He does have expressive aphasia. MENTAL STATUS EXAM: Oriented to himself and situation. Speech as noted, abstraction fair, computation impaired, language function intact. Mood and affect still somewhat dysphoric, depressed. No suicidal ideation. LABORATORY DATA: Reviewed. IMPRESSION: Major neurocognitive disorder, vascular with depression, major depressive disorder. Rest unchanged. PLAN: Change Celexa 40 mg a day to Cymbalta 30 mg a day for 2 days, then 60 mg a day. Continue Marinol and Abilify unchanged. Continue Remeron 7.5 mg at bedtime. MAN Shant DELGADO MD DR: RICHY/amada JOB#: [id number] / [id number]
[2018-02-07 15:58] VITALS: BP 118/68
--- NOTE | 2018-02-07 16:16 | PN ---
DATE: 02/06/2018 PSYCHIATRIC PROGRESS NOTE This late entry 02/06/2018 covers elements not covered in my initial note. SUBJECTIVE: I met with the patient in the evening. The patient slept 6-3/4 hours previous night. Appetite is 100%, which is quite an improvement. He is quite irritable previous evening, better during the day on 02/06/2018. Spending more time in the day room, which is an improvement for him. He is more animated as I met with him in his room attempting to communicate despite his expressive aphasia. He gets sedated during the day secondary to morphine for his chronic pain, especially with the right side ribs. REVIEW OF SYSTEMS: Ambulation impaired, in Broda chair. No CV, , pulmonary, eye system symptoms on review. Does have complaints of pain as above. MENTAL STATUS EXAM: Oriented to himself and situation. Speech is difficult to understand given his aphasia. Abstraction fair, computation impaired, language function intact, attention span short. Mood and affect showing slightly more animation. LABORATORY DATA: Reviewed. IMPRESSION: Major depressive disorder, recurrent, in partial remission; major neurocognitive disorder, vascular with depression. Rest unchanged. Status post cerebrovascular accident. PLAN: Continue psychotropics mentioned in my initial note including Cymbalta 60 mg a day, Abilify 5 mg a day, Marinol to help stimulate appetite, Remeron 7.5 mg at bedtime. MAN Shant DELGADO MD DR: RICHY/amada JOB#: [id number] / [id number]
[2018-02-07] MEDS: MIRTAZAPINE 7.5 MG TABLET. PO SCH (19:17)
[2018-02-07] MEDS: PATCH REMOVAL. MC SCH (19:17)
[2018-02-07] MEDS: ATORVASTATIN CALCIUM 20 MG TABLET PO SCH (19:17)
--- NOTE | 2018-02-07 22:32 | PDOC ---
Exam Note: Marc Note: Please also refer to the separate dictated note~for this date of service dictated separately.~Patient seen individually. Discussed the patient with Nursing staff reviewed the chart.~Reviewed interim history and current functioning. Reviewed vital signs,~Labs/ Radiology~and current medications noted below. Continue current treatment with the changes noted in the dictated addendum note Assessment: Vital Signs: Vital Signs Date Time Temp Pulse Resp B/P (MAP) Pulse Ox O2 Delivery O2 Flow Rate FiO2 02/07/18 21:14 96 02/07/18 16:08 73 118/68 02/07/18 15:58 97.1 18 Room Air I&O Intake and Output 02/07/18 07:00 Intake Total 720 ml Balance 720 ml Intake Oral 720 ml # Voids 1 Current Medications: Meds: Current Medications Acetaminophen (Tylenol) 650 mg PRN Q6HRS PRN PO PAIN / TEMP; Start 01/22/18 at 20:15 Multi-Ingredient Ointment (Analgesic [place]) 1 luc PRN QID PRN TP MUSCLE PAIN; Start 01/22/18 at 20:15 Al Hydroxide/Mg Hydroxide (Mylanta Plus Xs) 15 ml PRN AFTMEALHC PRN PO DYSPEPSIA; Start 01/22/18 at 20:15 Magnesium Hydroxide (Milk Of Magnesia) 2,400 mg PRN QHS PRN PO CONSTIPATION Last administered on 01/29/18at 17:21; Start 01/22/18 at 20:15 Nicotine (Nicoderm Cq 14mg) 1 patch DAILY TD Last administered on 02/07/18at 09 :42; Start 01/23/18 at 09:00 Citalopram Hydrobromide (CeleXA) 30 mg DAILY PO Last administered on at 09:03; Start 01/23/18 at 09:00; Stop 01/31/18 at 17:40; Status DC Gabapentin (Neurontin) 400 mg QID PO Last administered on 02/07/18at 19:17; Start 01/23/18 at 09:00 Losartan Potassium (Cozaar) 50 mg DAILY PO Last administered on 02/07/18at 09: 41; Start 01/23/18 at 09:00 Tramadol HCl (Ultram) 50 mg PRN Q8HRS PRN PO PAIN Last administered on at 17:04; Start 01/22/18 at 23:15 Acetaminophen (Tylenol) 500 mg PRN Q6HRS PRN PO PAIN; Start 01/22/18 at 23:15 Apixaban (Eliquis) 5 mg BID PO Last administered on 02/07/18 19:17; Start at 09:00 Aspirin (Children'S Aspirin) 81 mg DAILY08 PO Last administered on 02/07/18 09:40; Start 01/23/18 at 08:00 Atorvastatin Calcium (Lipitor) 40 mg QHS PO Last administered on 02/07/18 19: 17; Start 01/23/18 at 21:00 Baclofen (Lioresal) 10 mg TID PO Last administered on 02/07/18 19:17; Start 01/23/18 at 09:00 Carvedilol (Coreg) 6.25 mg BIDWMEALS PO Last administered on 02/07/18 16:08; Start 01/23/18 at 08:00 Magnesium Oxide (Magnesium Oxide) 400 mg DAILY PO Last administered on 09:40; Start 01/23/18 at 09:00 Quetiapine Fumarate (SEROquel) 12.5 mg DAILY@1500 PO Last administered on 01/31at 15:38; Start 01/23/18 at 15:00; Stop 01/31/18 at 17:40; Status DC Quetiapine Fumarate (SEROquel) 25 mg QHS PO Last administered on 01/30/18 19: 16; Start 01/23/18 at 21:00; Stop 01/31/18 at 17:40; Status DC Spironolactone (Aldactone) 25 mg DAILY PO Last administered on 02/07/18 09:41 ; Start 01/23/18 at 09:00 Vitamin D (Vitamin D3) 50,000 unit WEEKLY PO ; Start 01/30/18 at 09:00; Stop 01/30/18 at 09:00; Status DC Iohexol (Omnipaque 240 Mg/ml) 50 ml STK-MED ONCE .ROUTE ; Start 01/23/18 at 14: 34; Stop 01/23/18 at 14:35; Status DC Iohexol (Omnipaque 300 Mg/ml) 75 ml 1X ONCE IV Last administered on 16:02; Start 01/23/18 at 16:00; Stop 01/23/18 at 16:01; Status DC Vitamin D (Vitamin D3) 50,000 unit WEEKLY PO Last administered on 02/06/18 08 :31; Start 01/23/18 at 16:15 Morphine Sulfate (Morphine Oral Solution) 5 mg PRN Q4HRS PRN PO PAIN Last administered on 02/07/18 21:14; Start 01/23/18 at 18:00 Lidocaine (Lidoderm) 1 patch DAILY TD Last administered on 01/30/18 08:57; Start 01/24/18 at 09:00; Stop 01/30/18 at 16:05; Status DC Miscellaneous (Lidoderm Patch Removal) 1 ea QHS MC Last administered on 19:23; Start 01/23/18 at 21:00; Stop 01/26/18 at 13:37; Status DC Lidocaine (Lidoderm) 1 patch DAILY TD Last administered on 02/07/18 09:42; Start 01/26/18 at 09:00 Miscellaneous (Lidoderm Patch Removal) 2 ea QHS MC Last administered on 19:17; Start 01/25/18 at 21:00 Ceftriaxone Sodium 1 gm/ Sodium Chloride 50 ml @ 100 mls/hr Q24H IV Last administered on 01/26/18 17:10; Start 01/26/18 at 17:00; Stop 01/27/18 at 13 :02; Status DC Trimethoprim/ Sulfamethoxazole (Bactrim Ds) 1 tab BID PO Last administered on 02/04/18 08:22; Start 01/27/18 at 21:00; Stop 02/04/18 at 20:59; Status DC Lactobacillus Rhamnosus (Culturelle) 1 cap BID PO Last administered on 19:17; Start 01/27/18 at 21:00 Dronabinol (Marinol) 2.5 mg BIDACLD PO Last administered on 02/07/18 16:08; Start 01/28/18 at 16:30 Citalopram Hydrobromide (CeleXA) 40 mg DAILY PO Last administered on at 08:45; Start 02/01/18 at 09:00; Stop 02/05/18 at 12:43; Status DC Aripiprazole (Abilify) 5 mg DAILY PO Last administered on 02/07/18at 09:41; Start 02/01/18 at 09:00 Vitamin A/Vitamin D (Vitamin A & D Ointment) 1 luc TID TP Last administered on 02/07/18at 19:18; Start 02/04/18 at 09:00 Mirtazapine (Remeron) 7.5 mg QHS PO Last administered on 02/07/18at 19:17; Start 02/04/18 at 21:00 Mirtazapine (Remeron) 7.5 mg QHS PO ; Start 02/05/18 at 21:00; Stop 02/05/18 at 21:00; Status DC Duloxetine HCl (Cymbalta) 30 mg DAILY PO Last administered on 02/07/18at 09:41 ; Start 02/06/18 at 09:00; Stop 02/07/18 at 13:00; Status DC Duloxetine HCl (Cymbalta) 60 mg DAILY PO ; Start 02/08/18 at 09:00 Active Scripts Active Reported Acetaminophen 325 Mg/10.15 Ml Solution 500 Mg PO PRN Q6HRS PRN Tramadol Hcl (Tramadol HCl) 50 Mg Tablet 50 Mg PO PRN Q8HRS PRN Seroquel (Quetiapine Fumarate) 25 Mg Tablet 25 Mg PO QHS Seroquel (Quetiapine Fumarate) 25 Mg Tablet 12.5 Mg PO DAILY@1500 Magnesium Oxide 400 Mg Tablet 400 Mg PO DAILY Losartan Potassium 50 Mg Tablet 50 Mg PO DAILY Gabapentin 100 Mg Capsule 400 Mg PO QID Eliquis (Apixaban) 5 Mg Tablet 5 Mg PO BID Celexa (Citalopram Hydrobromide) 20 Mg Tablet 30 Mg PO DAILY Carvedilol 6.25 Mg Tablet 6.25 Mg PO BID Baclofen 10 Mg Tablet 10 Mg PO TID Atorvastatin Calcium 40 Mg Tablet 40 Mg PO QHS Aspirin 81 Mg Tab.chew 81 Mg PO DAILY Aldactone (Spironolactone) 25 Mg Tablet 25 Mg PO DAILY I have reviewed the current psychotropics carefully including drug interactions. Risk benefit ratio favors no change other than as noted in my dictated progress note. Diagnosis: Problems: (1) Anxiety disorder (2) Schizoaffective disorder, bipolar type (3) Dementia, vascular, with delusions (4) Dementia, vascular, with depression (5) Impulse control disorder GUADALUPE DELGADO MD Feb 07, 2018 22:32
[2018-02-08 05:57] VITALS: BP 111/70
[2018-02-08] MEDS: APIXABAN 5 MG TABLET. PO SCH ×2 (07:59→19:32)
[2018-02-08] MEDS: DRONABINOL 2.5 MG CAPSULE PO SCH ×2 (07:59→16:59)
[2018-02-08] MEDS: LACTOBACILLUS RHAMNOSUS GG 1 CAPSULE. PO SCH ×2 (07:59→19:32)
[2018-02-08] MEDS: MAGNESIUM OXIDE 400 MG TABLET PO SCH (07:59)
[2018-02-08] MEDS: GABAPENTIN 400 MG CAPSULE. PO SCH ×4 (07:59→19:32)
[2018-02-08] MEDS: LOSARTAN 50 MG TABLET. PO SCH (08:00)
[2018-02-08] MEDS: ARIPiprazole 5 MG TABLET PO SCH (08:00)
[2018-02-08] MEDS: BACLOFEN 10 MG TABLET PO SCH ×3 (08:00→19:32)
[2018-02-08] MEDS: NICOTINE 14MG PATCH. TD SCH (08:00)
[2018-02-08] MEDS: ASPIRIN 81 MG TAB.CHEW PO SCH (08:00)
[2018-02-08] MEDS: CARVEDILOL 6.25 MG TABLET PO SCH ×2 (08:00→16:59)
[2018-02-08] MEDS: SPIRONOLACTONE 25 MG TABLET PO SCH (08:00)
[2018-02-08] MEDS: LIDOCAINE (700MG/PATCH) PATCH. TD SCH (08:01)
[2018-02-08] MEDS: VITS A & D/LANOLIN TOPICAL OINTMENT 56GM TUBE. TP SCH ×3 (08:33→19:33)
[2018-02-08] MEDS: DULoxetine HCL 60 MG CAPSULE.DR PO SCH (08:33)
[2018-02-08 15:50] VITALS: BP 117/78
[2018-02-08] MEDS: ATORVASTATIN CALCIUM 20 MG TABLET PO SCH (19:32)
[2018-02-08] MEDS: MIRTAZAPINE 7.5 MG TABLET. PO SCH (19:32)
[2018-02-08] MEDS: PATCH REMOVAL. MC SCH (19:33)
[2018-02-08] MEDS: traMADol 50 MG TABLET PO PRN (19:42)
--- NOTE | 2018-02-08 21:43 | PDOC ---
Exam Note: Marc Note: Please also refer to the separate dictated note~for this date of service dictated separately.~Patient seen individually. Discussed the patient with Nursing staff reviewed the chart.~Reviewed interim history and current functioning. Reviewed vital signs,~Labs/ Radiology~and current medications noted below. Continue current treatment with the changes noted in the dictated addendum note Assessment: Vital Signs: Vital Signs Date Time Temp Pulse Resp B/P (MAP) Pulse Ox O2 Delivery O2 Flow Rate FiO2 02/08/18 20:42 96 02/08/18 16:59 70 117/78 02/08/18 15:50 97.4 18 Room Air I&O Intake and Output 02/08/18 07:00 Intake Total 720 ml Output Total 450 ml Balance 270 ml Intake Oral 720 ml Output Urine Total 450 ml # Bowel Movements 1 Current Medications: Meds: Current Medications Acetaminophen (Tylenol) 650 mg PRN Q6HRS PRN PO PAIN / TEMP; Start 01/22/18 at 20:15 Multi-Ingredient Ointment (Analgesic [place]) 1 luc PRN QID PRN TP MUSCLE PAIN; Start 01/22/18 at 20:15 Al Hydroxide/Mg Hydroxide (Mylanta Plus Xs) 15 ml PRN AFTMEALHC PRN PO DYSPEPSIA; Start 01/22/18 at 20:15 Magnesium Hydroxide (Milk Of Magnesia) 2,400 mg PRN QHS PRN PO CONSTIPATION Last administered on 01/29/18at 17:21; Start 01/22/18 at 20:15 Nicotine (Nicoderm Cq 14mg) 1 patch DAILY TD Last administered on 02/08/18at 08: 00; Start 01/23/18 at 09:00 Citalopram Hydrobromide (CeleXA) 30 mg DAILY PO Last administered on at 09:03; Start 01/23/18 at 09:00; Stop 01/31/18 at 17:40; Status DC Gabapentin (Neurontin) 400 mg QID PO Last administered on 02/08/18at 19:32; Start 01/23/18 at 09:00 Losartan Potassium (Cozaar) 50 mg DAILY PO Last administered on 02/08/18at 08:00 ; Start 01/23/18 at 09:00 Tramadol HCl (Ultram) 50 mg PRN Q8HRS PRN PO PAIN Last administered on at 19:42; Start 01/22/18 at 23:15 Acetaminophen (Tylenol) 500 mg PRN Q6HRS PRN PO PAIN; Start 01/22/18 at 23:15 Apixaban (Eliquis) 5 mg BID PO Last administered on 02/08/18 19:32; Start at 09:00 Aspirin (Children'S Aspirin) 81 mg DAILY08 PO Last administered on 02/08/18at 08 :00; Start 01/23/18 at 08:00 Atorvastatin Calcium (Lipitor) 40 mg QHS PO Last administered on 02/08/18 19: 32; Start 01/23/18 at 21:00 Baclofen (Lioresal) 10 mg TID PO Last administered on 02/08/18 19:32; Start 01/23/18 at 09:00 Carvedilol (Coreg) 6.25 mg BIDWMEALS PO Last administered on 02/08/18 16:59; Start 01/23/18 at 08:00 Magnesium Oxide (Magnesium Oxide) 400 mg DAILY PO Last administered on at 07:59; Start 01/23/18 at 09:00 Quetiapine Fumarate (SEROquel) 12.5 mg DAILY@1500 PO Last administered on 01/31at 15:38; Start 01/23/18 at 15:00; Stop 01/31/18 at 17:40; Status DC Quetiapine Fumarate (SEROquel) 25 mg QHS PO Last administered on 01/30/18at 19: 16; Start 01/23/18 at 21:00; Stop 01/31/18 at 17:40; Status DC Spironolactone (Aldactone) 25 mg DAILY PO Last administered on 02/08/18at 08:00 ; Start 01/23/18 at 09:00 Vitamin D (Vitamin D3) 50,000 unit WEEKLY PO ; Start 01/30/18 at 09:00; Stop 01/30/18 at 09:00; Status DC Iohexol (Omnipaque 240 Mg/ml) 50 ml STK-MED ONCE .ROUTE ; Start 01/23/18 at 14: 34; Stop 01/23/18 at 14:35; Status DC Iohexol (Omnipaque 300 Mg/ml) 75 ml 1X ONCE IV Last administered on 16:02; Start 01/23/18 at 16:00; Stop 01/23/18 at 16:01; Status DC Vitamin D (Vitamin D3) 50,000 unit WEEKLY PO Last administered on 02/06/18 08 :31; Start 01/23/18 at 16:15 Morphine Sulfate (Morphine Oral Solution) 5 mg PRN Q4HRS PRN PO PAIN Last administered on 02/07/18 21:14; Start 01/23/18 at 18:00 Lidocaine (Lidoderm) 1 patch DAILY TD Last administered on 01/30/18 08:57; Start 01/24/18 at 09:00; Stop 01/30/18 at 16:05; Status DC Miscellaneous (Lidoderm Patch Removal) 1 ea QHS MC Last administered on 19:23; Start 01/23/18 at 21:00; Stop 01/26/18 at 13:37; Status DC Lidocaine (Lidoderm) 1 patch DAILY TD Last administered on 02/08/18 08:01; Start 01/26/18 at 09:00 Miscellaneous (Lidoderm Patch Removal) 2 ea QHS MC Last administered on 19:33; Start 01/25/18 at 21:00 Ceftriaxone Sodium 1 gm/ Sodium Chloride 50 ml @ 100 mls/hr Q24H IV Last administered on 01/26/18 17:10; Start 01/26/18 at 17:00; Stop 01/27/18 at 13 :02; Status DC Trimethoprim/ Sulfamethoxazole (Bactrim Ds) 1 tab BID PO Last administered on 02/04/18 08:22; Start 01/27/18 at 21:00; Stop 02/04/18 at 20:59; Status DC Lactobacillus Rhamnosus (Culturelle) 1 cap BID PO Last administered on 19:32; Start 01/27/18 at 21:00 Dronabinol (Marinol) 2.5 mg BIDACLD PO Last administered on 02/08/18 16:59; Start 01/28/18 at 16:30 Citalopram Hydrobromide (CeleXA) 40 mg DAILY PO Last administered on at 08:45; Start 02/01/18 at 09:00; Stop 02/05/18 at 12:43; Status DC Aripiprazole (Abilify) 5 mg DAILY PO Last administered on 02/08/18at 08:00; Start 02/01/18 at 09:00 Vitamin A/Vitamin D (Vitamin A & D Ointment) 1 luc TID TP Last administered on 02/08/18at 19:33; Start 02/04/18 at 09:00 Mirtazapine (Remeron) 7.5 mg QHS PO Last administered on 02/08/18at 19:32; Start 02/04/18 at 21:00 Mirtazapine (Remeron) 7.5 mg QHS PO ; Start 02/05/18 at 21:00; Stop 02/05/18 at 21:00; Status DC Duloxetine HCl (Cymbalta) 30 mg DAILY PO Last administered on 02/07/18at 09:41 ; Start 02/06/18 at 09:00; Stop 02/07/18 at 13:00; Status DC Duloxetine HCl (Cymbalta) 60 mg DAILY PO Last administered on 02/08/18at 08:33; Start 02/08/18 at 09:00 Active Scripts Active Reported Acetaminophen 325 Mg/10.15 Ml Solution 500 Mg PO PRN Q6HRS PRN Tramadol Hcl (Tramadol HCl) 50 Mg Tablet 50 Mg PO PRN Q8HRS PRN Seroquel (Quetiapine Fumarate) 25 Mg Tablet 25 Mg PO QHS Seroquel (Quetiapine Fumarate) 25 Mg Tablet 12.5 Mg PO DAILY@1500 Magnesium Oxide 400 Mg Tablet 400 Mg PO DAILY Losartan Potassium 50 Mg Tablet 50 Mg PO DAILY Gabapentin 100 Mg Capsule 400 Mg PO QID Eliquis (Apixaban) 5 Mg Tablet 5 Mg PO BID Celexa (Citalopram Hydrobromide) 20 Mg Tablet 30 Mg PO DAILY Carvedilol 6.25 Mg Tablet 6.25 Mg PO BID Baclofen 10 Mg Tablet 10 Mg PO TID Atorvastatin Calcium 40 Mg Tablet 40 Mg PO QHS Aspirin 81 Mg Tab.chew 81 Mg PO DAILY Aldactone (Spironolactone) 25 Mg Tablet 25 Mg PO DAILY I have reviewed the current psychotropics carefully including drug interactions. Risk benefit ratio favors no change other than as noted in my dictated progress note. Diagnosis: Problems: (1) Anxiety disorder (2) Schizoaffective disorder, bipolar type (3) Dementia, vascular, with delusions (4) Dementia, vascular, with depression (5) Impulse control disorder GUADALUPE DELGADO MD Feb 08, 2018 21:43
[2018-02-09 05:49] VITALS: BP 105/72
[2018-02-09 07:26] LABS: BASO # 0.1 x10^3/uL (0.0-0.2); BASO % 1 % (0-3); EOS # 0.7 x10^3/uL (0.0-0.7); EOS % 9 % (0-3); HEMATOCRIT 43.8 % (39.0-53.0); HEMOGLOBIN 14.9 g/dL (13.0-17.5); LYMPH # 2.3 x10^3/uL (1.0-4.8); LYMPH % 27 % (24-48); MEAN CORPUSCULAR HEMOGLOBIN 30 pg (25-35); MEAN CORPUSCULAR HGB CONC 34 g/dL (31-37); MEAN CORPUSCULAR VOLUME 89 fL (79-100); MONO # 0.7 x10^3/uL (0.0-1.1); MONO % 8 % (0-9); NEUT # 4.6 x10^3uL (1.8-7.7); NEUT % 56 % (31-73); PLATELET COUNT 373 x10^3/uL (140-400); RED BLOOD COUNT 4.95 x10^6/uL (4.30-5.70); RED CELL DISTRIBUTION WIDTH 14.3 % (11.5-14.5); WHITE BLOOD COUNT 8.3 x10^3/uL (4.0-11.0)
[2018-02-09 07:44] LABS: ALBUMIN 3.1 g/dL (3.4-5.0); ALBUMIN/GLOBULIN RATIO 0.7 (1.0-1.7); CREATININE 0.9 mg/dL (0.7-1.3); GFR 86.7; POTASSIUM 4.1 mmol/L (3.5-5.1); TOTAL BILIRUBIN 0.5 mg/dL (0.2-1.0); TOTAL PROTEIN 7.4 g/dL (6.4-8.2)
[2018-02-09] MEDS: LIDOCAINE (700MG/PATCH) PATCH. TD SCH (07:44)
[2018-02-09] MEDS: NICOTINE 14MG PATCH. TD SCH (07:44)
[2018-02-09] MEDS: GABAPENTIN 400 MG CAPSULE. PO SCH ×4 (07:45→19:34)
[2018-02-09] MEDS: SPIRONOLACTONE 25 MG TABLET PO SCH (07:45)
[2018-02-09] MEDS: ASPIRIN 81 MG TAB.CHEW PO SCH (07:45)
[2018-02-09] MEDS: CARVEDILOL 6.25 MG TABLET PO SCH ×2 (07:45→16:53)
[2018-02-09] MEDS: BACLOFEN 10 MG TABLET PO SCH ×3 (07:45→19:34)
[2018-02-09] MEDS: DULoxetine HCL 60 MG CAPSULE.DR PO SCH (07:45)
[2018-02-09] MEDS: LACTOBACILLUS RHAMNOSUS GG 1 CAPSULE. PO SCH ×2 (07:45→19:34)
[2018-02-09] MEDS: MAGNESIUM OXIDE 400 MG TABLET PO SCH (07:45)
[2018-02-09] MEDS: VITS A & D/LANOLIN TOPICAL OINTMENT 56GM TUBE. TP SCH ×3 (07:46→19:35)
[2018-02-09] MEDS: ARIPiprazole 5 MG TABLET PO SCH (07:46)
[2018-02-09] MEDS: LOSARTAN 50 MG TABLET. PO SCH (07:46)
[2018-02-09] MEDS: APIXABAN 5 MG TABLET. PO SCH ×2 (07:46→19:34)
[2018-02-09] MEDS: DRONABINOL 2.5 MG CAPSULE PO SCH ×2 (11:42→16:53)
[2018-02-09 15:46] VITALS: BP 127/76
[2018-02-09] MEDS: PATCH REMOVAL. MC SCH (19:34)
[2018-02-09] MEDS: ATORVASTATIN CALCIUM 20 MG TABLET PO SCH (19:34)
[2018-02-09] MEDS: MIRTAZAPINE 7.5 MG TABLET. PO SCH (19:34)
[2018-02-09] MEDS: traMADol 50 MG TABLET PO PRN (19:44)
--- NOTE | 2018-02-09 22:01 | PN ---
DATE: 02/07/2018 This is a late entry for date of service 02/07/2018 and covers elements not covered in my initial note. SUBJECTIVE: I met with the patient in the evening. The patient slept 8 hours previous night. He is compliant with his medications, somewhat withdrawn, but more interactive. Appetite is better. It is well. REVIEW OF SYSTEMS: Positive for the chronic pain, impaired ambulation, in Broda chair. No CV, , pulmonary, eye system symptoms on review. MENTAL STATUS EXAM: Oriented to himself and situation. Speech has some latency, often responses monosyllabic, difficult to understand due to his aphasia. Abstraction fair, computation impaired, language function intact, attention span short. Mood and affect somewhat withdrawn, but less depressed. LABORATORY DATA: Reviewed. IMPRESSION: Unchanged from initial note. PLAN: No change from initial note. Continue Abilify, Marinol, Cymbalta, which has been gradually increased together with Remeron. GUADALUPE DELGADO MD DR: RICHY/amada JOB#: [id number] / [id number]
--- NOTE | 2018-02-09 22:36 | PN ---
DATE: 02/08/2018 This is a late entry for 02/08/2018 covers elements not covered in my initial note. SUBJECTIVE: I met with the patient in the evening. The patient slept 7-1/2 hours previous night. Appetite is better. REVIEW OF SYSTEMS: Ambulation impaired, in wheelchair. No CV, , pulmonary, eye, ENT system symptoms on review. MENTAL STATUS EXAM: Oriented to himself and situation. Speech moderate latency, often responses monosyllabic affected by the expressive aphasia. Abstraction fair, computation impaired, language function intact. Mood and affect still depressed, but improved. LABORATORY DATA: Reviewed. IMPRESSION: Major depressive disorder, major neurocognitive disorder, vascular with depression. Rest unchanged. PLAN: No change from initial note. MAN Shant DELGADO MD DR: RICHY/amada JOB#: [id number] / [id number]
[2018-02-10 05:49] VITALS: BP 146/84
[2018-02-10] MEDS: DULoxetine HCL 60 MG CAPSULE.DR PO SCH (07:53)
[2018-02-10] MEDS: CARVEDILOL 6.25 MG TABLET PO SCH ×2 (07:53→16:54)
[2018-02-10] MEDS: ARIPiprazole 5 MG TABLET PO SCH (07:53)
[2018-02-10] MEDS: traMADol 50 MG TABLET PO PRN ×2 (07:53→20:12)
[2018-02-10] MEDS: BACLOFEN 10 MG TABLET PO SCH ×3 (07:53→19:17)
[2018-02-10] MEDS: SPIRONOLACTONE 25 MG TABLET PO SCH (07:53)
[2018-02-10] MEDS: GABAPENTIN 400 MG CAPSULE. PO SCH ×4 (07:53→19:17)
[2018-02-10] MEDS: LOSARTAN 50 MG TABLET. PO SCH (07:54)
[2018-02-10] MEDS: ASPIRIN 81 MG TAB.CHEW PO SCH (07:54)
[2018-02-10] MEDS: LIDOCAINE (700MG/PATCH) PATCH. TD SCH (07:54)
[2018-02-10] MEDS: MAGNESIUM OXIDE 400 MG TABLET PO SCH (07:54)
[2018-02-10] MEDS: APIXABAN 5 MG TABLET. PO SCH ×2 (07:54→19:18)
[2018-02-10] MEDS: LACTOBACILLUS RHAMNOSUS GG 1 CAPSULE. PO SCH ×2 (07:54→19:18)
[2018-02-10] MEDS: NICOTINE 14MG PATCH. TD SCH (07:54)
[2018-02-10] MEDS: VITS A & D/LANOLIN TOPICAL OINTMENT 56GM TUBE. TP SCH ×3 (07:55→21:59)
--- NOTE | 2018-02-10 10:07 | PDOC ---
Exam Note: Marc Note: Late entry for DOS 02/09/2018. Please also refer to the separate dictated note~ for this date of service dictated separately.~Patient seen individually. Discussed the patient with Nursing staff reviewed the chart.~Reviewed interim history and current functioning. Reviewed vital signs,~Labs/ Radiology~and current medications noted below. Continue current treatment with the changes noted in the dictated addendum note Assessment: Vital Signs: VS - Last 72 Hours, by Label Date Time Temp Pulse Resp B/P (MAP) Pulse Ox O2 Delivery O2 Flow Rate FiO2 02/10/18 09:18 18 02/10/18 07:54 74 146/84 02/10/18 07:53 74 146/84 02/10/18 07:53 18 02/10/18 05:49 96.9 74 18 146/84 (104) 98 02/09/18 21:11 95 02/09/18 19:44 95 02/09/18 16:53 64 127/76 02/09/18 15:46 97.0 64 18 127/76 (93) 95 02/09/18 07:46 52 105/72 02/09/18 07:45 52 105/72 02/09/18 05:49 97.1 52 18 105/72 (83) 96 02/08/18 19:42 96 02/08/18 16:59 70 117/78 02/08/18 15:50 97.4 70 18 117/78 (91) 96 Room Air 02/08/18 08:00 66 111/70 02/08/18 08:00 66 111/70 02/08/18 05:57 97.2 66 18 111/70 (84) 95 02/07/18 22:14 96 02/07/18 21:14 96 02/07/18 16:08 73 118/68 02/07/18 15:58 97.1 73 18 118/68 (85) 96 Room Air 02/07/18 14:57 Room Air 02/07/18 13:44 Room Air Vital Signs Date Time Temp Pulse Resp B/P (MAP) Pulse Ox O2 Delivery O2 Flow Rate FiO2 02/10/18 09:18 18 02/10/18 07:54 74 146/84 02/10/18 05:49 96.9 98 02/08/18 15:50 Room Air I&O Intake and Output 02/10/18 07:00 Intake Total 960 ml Output Total 800 ml Balance 160 ml Intake Oral 960 ml Output Urine Total 800 ml Current Medications: Meds: Current Medications Acetaminophen (Tylenol) 650 mg PRN Q6HRS PRN PO PAIN / TEMP; Start 01/22/18 at 20:15 Multi-Ingredient Ointment (Analgesic [place]) 1 luc PRN QID PRN TP MUSCLE PAIN; Start 01/22/18 at 20:15 Al Hydroxide/Mg Hydroxide (Mylanta Plus Xs) 15 ml PRN AFTMEALHC PRN PO DYSPEPSIA; Start 01/22/18 at 20:15 Magnesium Hydroxide (Milk Of Magnesia) 2,400 mg PRN QHS PRN PO CONSTIPATION Last administered on 01/29/18 17:21; Start 01/22/18 at 20:15 Nicotine (Nicoderm Cq 14mg) 1 patch DAILY TD Last administered on 02/10/18at 07: 54; Start 01/23/18 at 09:00 Citalopram Hydrobromide (CeleXA) 30 mg DAILY PO Last administered on at 09:03; Start 01/23/18 at 09:00; Stop 01/31/18 at 17:40; Status DC Gabapentin (Neurontin) 400 mg QID PO Last administered on 02/10/18 07:53; Start 01/23/18 at 09:00 Losartan Potassium (Cozaar) 50 mg DAILY PO Last administered on 02/10/18at 07:54 ; Start 01/23/18 at 09:00 Tramadol HCl (Ultram) 50 mg PRN Q8HRS PRN PO PAIN Last administered on at 07:53; Start 01/22/18 at 23:15 Acetaminophen (Tylenol) 500 mg PRN Q6HRS PRN PO PAIN; Start 01/22/18 at 23:15 Apixaban (Eliquis) 5 mg BID PO Last administered on 02/10/18 07:54; Start at 09:00 Aspirin (Children'S Aspirin) 81 mg DAILY08 PO Last administered on 02/10/18 07 :54; Start 01/23/18 at 08:00 Atorvastatin Calcium (Lipitor) 40 mg QHS PO Last administered on 02/09/18at 19: 34; Start 01/23/18 at 21:00 Baclofen (Lioresal) 10 mg TID PO Last administered on 02/10/18 07:53; Start 01/23/18 at 09:00 Carvedilol (Coreg) 6.25 mg BIDWMEALS PO Last administered on 02/10/18 07:53; Start 01/23/18 at 08:00 Magnesium Oxide (Magnesium Oxide) 400 mg DAILY PO Last administered on 07:54; Start 01/23/18 at 09:00 Quetiapine Fumarate (SEROquel) 12.5 mg DAILY@1500 PO Last administered on 01/31at 15:38; Start 01/23/18 at 15:00; Stop 01/31/18 at 17:40; Status DC Quetiapine Fumarate (SEROquel) 25 mg QHS PO Last administered on 01/30/18 19: 16; Start 01/23/18 at 21:00; Stop 01/31/18 at 17:40; Status DC Spironolactone (Aldactone) 25 mg DAILY PO Last administered on 02/10/18 07:53 ; Start 01/23/18 at 09:00 Vitamin D (Vitamin D3) 50,000 unit WEEKLY PO ; Start 01/30/18 at 09:00; Stop 01/30/18 at 09:00; Status DC Iohexol (Omnipaque 240 Mg/ml) 50 ml STK-MED ONCE .ROUTE ; Start 01/23/18 at 14: 34; Stop 01/23/18 at 14:35; Status DC Iohexol (Omnipaque 300 Mg/ml) 75 ml 1X ONCE IV Last administered on at 16:02; Start 01/23/18 at 16:00; Stop 01/23/18 at 16:01; Status DC Vitamin D (Vitamin D3) 50,000 unit WEEKLY PO Last administered on 02/06/18at 08 :31; Start 01/23/18 at 16:15 Morphine Sulfate (Morphine Oral Solution) 5 mg PRN Q4HRS PRN PO PAIN Last administered on 02/07/18at 21:14; Start 01/23/18 at 18:00 Lidocaine (Lidoderm) 1 patch DAILY TD Last administered on 01/30/18at 08:57; Start 01/24/18 at 09:00; Stop 01/30/18 at 16:05; Status DC Miscellaneous (Lidoderm Patch Removal) 1 ea QHS MC Last administered on at 19:23; Start 01/23/18 at 21:00; Stop 01/26/18 at 13:37; Status DC Lidocaine (Lidoderm) 1 patch DAILY TD Last administered on 02/10/18 07:54; Start 01/26/18 at 09:00 Miscellaneous (Lidoderm Patch Removal) 2 ea QHS MC Last administered on 19:34; Start 01/25/18 at 21:00 Ceftriaxone Sodium 1 gm/ Sodium Chloride 50 ml @ 100 mls/hr Q24H IV Last administered on 01/26/18at 17:10; Start 01/26/18 at 17:00; Stop 01/27/18 at 13 :02; Status DC Trimethoprim/ Sulfamethoxazole (Bactrim Ds) 1 tab BID PO Last administered on 02/04/18at 08:22; Start 01/27/18 at 21:00; Stop 02/04/18 at 20:59; Status DC Lactobacillus Rhamnosus (Culturelle) 1 cap BID PO Last administered on 07:54; Start 01/27/18 at 21:00 Dronabinol (Marinol) 2.5 mg BIDACLD PO Last administered on 02/09/18 16:53; Start 01/28/18 at 16:30 Citalopram Hydrobromide (CeleXA) 40 mg DAILY PO Last administered on at 08:45; Start 02/01/18 at 09:00; Stop 02/05/18 at 12:43; Status DC Aripiprazole (Abilify) 5 mg DAILY PO Last administered on 02/10/18 07:53; Start 02/01/18 at 09:00 Vitamin A/Vitamin D (Vitamin A & D Ointment) 1 luc TID TP Last administered on 02/10/18 07:55; Start 02/04/18 at 09:00 Mirtazapine (Remeron) 7.5 mg QHS PO Last administered on 02/09/18 19:34; Start 02/04/18 at 21:00 Mirtazapine (Remeron) 7.5 mg QHS PO ; Start 02/05/18 at 21:00; Stop 02/05/18 at 21:00; Status DC Duloxetine HCl (Cymbalta) 30 mg DAILY PO Last administered on 02/07/18at 09:41 ; Start 02/06/18 at 09:00; Stop 02/07/18 at 13:00; Status DC Duloxetine HCl (Cymbalta) 60 mg DAILY PO Last administered on 02/10/18at 07:53; Start 02/08/18 at 09:00 Active Scripts Active Reported Acetaminophen 325 Mg/10.15 Ml Solution 500 Mg PO PRN Q6HRS PRN Tramadol Hcl (Tramadol HCl) 50 Mg Tablet 50 Mg PO PRN Q8HRS PRN Seroquel (Quetiapine Fumarate) 25 Mg Tablet 25 Mg PO QHS Seroquel (Quetiapine Fumarate) 25 Mg Tablet 12.5 Mg PO DAILY@1500 Magnesium Oxide 400 Mg Tablet 400 Mg PO DAILY Losartan Potassium 50 Mg Tablet 50 Mg PO DAILY Gabapentin 100 Mg Capsule 400 Mg PO QID Eliquis (Apixaban) 5 Mg Tablet 5 Mg PO BID Celexa (Citalopram Hydrobromide) 20 Mg Tablet 30 Mg PO DAILY Carvedilol 6.25 Mg Tablet 6.25 Mg PO BID Baclofen 10 Mg Tablet 10 Mg PO TID Atorvastatin Calcium 40 Mg Tablet 40 Mg PO QHS Aspirin 81 Mg Tab.chew 81 Mg PO DAILY Aldactone (Spironolactone) 25 Mg Tablet 25 Mg PO DAILY I have reviewed the current psychotropics carefully including drug interactions. Risk benefit ratio favors no change other than as noted in my dictated progress note. Diagnosis: Problems: (1) Anxiety disorder (2) Schizoaffective disorder, bipolar type (3) Dementia, vascular, with delusions (4) Dementia, vascular, with depression (5) Impulse control disorder GUADALUPE DELGADO MD Feb 10, 2018 10:07
[2018-02-10] MEDS: DRONABINOL 2.5 MG CAPSULE PO SCH ×2 (11:35→16:54)
[2018-02-10 16:09] VITALS: BP 117/81
[2018-02-10] MEDS: MIRTAZAPINE 7.5 MG TABLET. PO SCH (19:17)
[2018-02-10] MEDS: ATORVASTATIN CALCIUM 20 MG TABLET PO SCH (19:18)
[2018-02-10] MEDS: PATCH REMOVAL. MC SCH (19:18)
--- NOTE | 2018-02-10 21:30 | PN ---
DATE: 02/09/2018 PSYCHIATRIC PROGRESS NOTE This late entry 02/09/2018, covers elements not covered in my initial note. SUBJECTIVE: I met with the patient in the evening. The patient slept 7 hours previous evening. He wants to be in his wheelchair instead of the Broda, which is an improvement. He refused lunch, but ate the rest of the meals. He has been trying to interact more and was pleasant, smiling, trying to communicate with me as I met with him individually, which in itself is an improvement. REVIEW OF SYSTEMS: Ambulation impaired. No CV, , pulmonary, eye, ENT system symptoms on review. MENTAL STATUS EXAM: Oriented to himself and situation. Speech marked by his aphasia. Abstraction fair, computation impaired, language function intact, attention span short. Mood and affect still somewhat depressed, but improved. LABORATORY DATA: Reviewed. No suicidal ideation. IMPRESSION: Unchanged from initial note. PLAN: No change from initial note. GUADALUPE DELGADO MD DR: RICHY/amada JOB#: [id number] / [id number]
--- NOTE | 2018-02-10 22:43 | PDOC ---
Exam Note: Marc Note: Please also refer to the separate dictated note~for this date of service dictated separately.~Patient seen individually. Discussed the patient with Nursing staff reviewed the chart.~Reviewed interim history and current functioning. Reviewed vital signs,~Labs/ Radiology~and current medications noted below. Continue current treatment with the changes noted in the dictated addendum note Assessment: Vital Signs: Vital Signs Date Time Temp Pulse Resp B/P (MAP) Pulse Ox O2 Delivery O2 Flow Rate FiO2 02/10/18 21:12 97 02/10/18 16:54 61 117/81 02/10/18 16:09 97.4 18 02/08/18 15:50 Room Air I&O Intake and Output 02/10/18 07:00 Intake Total 960 ml Output Total 800 ml Balance 160 ml Intake Oral 960 ml Output Urine Total 800 ml Current Medications: Meds: Current Medications Acetaminophen (Tylenol) 650 mg PRN Q6HRS PRN PO PAIN / TEMP; Start 01/22/18 at 20:15 Multi-Ingredient Ointment (Analgesic [place]) 1 luc PRN QID PRN TP MUSCLE PAIN; Start 01/22/18 at 20:15 Al Hydroxide/Mg Hydroxide (Mylanta Plus Xs) 15 ml PRN AFTMEALHC PRN PO DYSPEPSIA; Start 01/22/18 at 20:15 Magnesium Hydroxide (Milk Of Magnesia) 2,400 mg PRN QHS PRN PO CONSTIPATION Last administered on 01/29/18at 17:21; Start 01/22/18 at 20:15 Nicotine (Nicoderm Cq 14mg) 1 patch DAILY TD Last administered on 02/10/18at 07: 54; Start 01/23/18 at 09:00 Citalopram Hydrobromide (CeleXA) 30 mg DAILY PO Last administered on at 09:03; Start 01/23/18 at 09:00; Stop 01/31/18 at 17:40; Status DC Gabapentin (Neurontin) 400 mg QID PO Last administered on 02/10/18at 19:17; Start 01/23/18 at 09:00 Losartan Potassium (Cozaar) 50 mg DAILY PO Last administered on 02/10/18at 07:54 ; Start 01/23/18 at 09:00 Tramadol HCl (Ultram) 50 mg PRN Q8HRS PRN PO PAIN Last administered on at 20:12; Start 01/22/18 at 23:15 Acetaminophen (Tylenol) 500 mg PRN Q6HRS PRN PO PAIN; Start 01/22/18 at 23:15 Apixaban (Eliquis) 5 mg BID PO Last administered on 02/10/18 19:18; Start at 09:00 Aspirin (Children'S Aspirin) 81 mg DAILY08 PO Last administered on 02/10/18 07 :54; Start 01/23/18 at 08:00 Atorvastatin Calcium (Lipitor) 40 mg QHS PO Last administered on 02/10/18 19: 18; Start 01/23/18 at 21:00 Baclofen (Lioresal) 10 mg TID PO Last administered on 02/10/18 19:17; Start 01/23/18 at 09:00 Carvedilol (Coreg) 6.25 mg BIDWMEALS PO Last administered on 02/10/18 16:54; Start 01/23/18 at 08:00 Magnesium Oxide (Magnesium Oxide) 400 mg DAILY PO Last administered on at 07:54; Start 01/23/18 at 09:00 Quetiapine Fumarate (SEROquel) 12.5 mg DAILY@1500 PO Last administered on 01/31at 15:38; Start 01/23/18 at 15:00; Stop 01/31/18 at 17:40; Status DC Quetiapine Fumarate (SEROquel) 25 mg QHS PO Last administered on 01/30/18at 19: 16; Start 01/23/18 at 21:00; Stop 01/31/18 at 17:40; Status DC Spironolactone (Aldactone) 25 mg DAILY PO Last administered on 02/10/18 07:53 ; Start 01/23/18 at 09:00 Vitamin D (Vitamin D3) 50,000 unit WEEKLY PO ; Start 01/30/18 at 09:00; Stop 01/30/18 at 09:00; Status DC Iohexol (Omnipaque 240 Mg/ml) 50 ml STK-MED ONCE .ROUTE ; Start 01/23/18 at 14: 34; Stop 01/23/18 at 14:35; Status DC Iohexol (Omnipaque 300 Mg/ml) 75 ml 1X ONCE IV Last administered on 16:02; Start 01/23/18 at 16:00; Stop 01/23/18 at 16:01; Status DC Vitamin D (Vitamin D3) 50,000 unit WEEKLY PO Last administered on 02/06/18 08 :31; Start 01/23/18 at 16:15 Morphine Sulfate (Morphine Oral Solution) 5 mg PRN Q4HRS PRN PO PAIN Last administered on 02/07/18 21:14; Start 01/23/18 at 18:00 Lidocaine (Lidoderm) 1 patch DAILY TD Last administered on 01/30/18 08:57; Start 01/24/18 at 09:00; Stop 01/30/18 at 16:05; Status DC Miscellaneous (Lidoderm Patch Removal) 1 ea QHS MC Last administered on 19:23; Start 01/23/18 at 21:00; Stop 01/26/18 at 13:37; Status DC Lidocaine (Lidoderm) 1 patch DAILY TD Last administered on 02/10/18 07:54; Start 01/26/18 at 09:00 Miscellaneous (Lidoderm Patch Removal) 2 ea QHS MC Last administered on 19:18; Start 01/25/18 at 21:00 Ceftriaxone Sodium 1 gm/ Sodium Chloride 50 ml @ 100 mls/hr Q24H IV Last administered on 01/26/18 17:10; Start 01/26/18 at 17:00; Stop 01/27/18 at 13 :02; Status DC Trimethoprim/ Sulfamethoxazole (Bactrim Ds) 1 tab BID PO Last administered on 02/04/18 08:22; Start 01/27/18 at 21:00; Stop 02/04/18 at 20:59; Status DC Lactobacillus Rhamnosus (Culturelle) 1 cap BID PO Last administered on 19:18; Start 01/27/18 at 21:00 Dronabinol (Marinol) 2.5 mg BIDACLD PO Last administered on 02/10/18 16:54; Start 01/28/18 at 16:30 Citalopram Hydrobromide (CeleXA) 40 mg DAILY PO Last administered on 11/28/ 18at 08:45; Start 02/01/18 at 09:00; Stop 02/05/18 at 12:43; Status DC Aripiprazole (Abilify) 5 mg DAILY PO Last administered on 02/10/18at 07:53; Start 02/01/18 at 09:00 Vitamin A/Vitamin D (Vitamin A & D Ointment) 1 luc TID TP Last administered on 02/10/18at 21:59; Start 02/04/18 at 09:00 Mirtazapine (Remeron) 7.5 mg QHS PO Last administered on 02/10/18at 19:17; Start 02/04/18 at 21:00 Mirtazapine (Remeron) 7.5 mg QHS PO ; Start 02/05/18 at 21:00; Stop 02/05/18 at 21:00; Status DC Duloxetine HCl (Cymbalta) 30 mg DAILY PO Last administered on 02/07/18at 09:41 ; Start 02/06/18 at 09:00; Stop 02/07/18 at 13:00; Status DC Duloxetine HCl (Cymbalta) 60 mg DAILY PO Last administered on 02/10/18at 07:53; Start 02/08/18 at 09:00 Active Scripts Active Reported Acetaminophen 325 Mg/10.15 Ml Solution 500 Mg PO PRN Q6HRS PRN Tramadol Hcl (Tramadol HCl) 50 Mg Tablet 50 Mg PO PRN Q8HRS PRN Seroquel (Quetiapine Fumarate) 25 Mg Tablet 25 Mg PO QHS Seroquel (Quetiapine Fumarate) 25 Mg Tablet 12.5 Mg PO DAILY@1500 Magnesium Oxide 400 Mg Tablet 400 Mg PO DAILY Losartan Potassium 50 Mg Tablet 50 Mg PO DAILY Gabapentin 100 Mg Capsule 400 Mg PO QID Eliquis (Apixaban) 5 Mg Tablet 5 Mg PO BID Celexa (Citalopram Hydrobromide) 20 Mg Tablet 30 Mg PO DAILY Carvedilol 6.25 Mg Tablet 6.25 Mg PO BID Baclofen 10 Mg Tablet 10 Mg PO TID Atorvastatin Calcium 40 Mg Tablet 40 Mg PO QHS Aspirin 81 Mg Tab.chew 81 Mg PO DAILY Aldactone (Spironolactone) 25 Mg Tablet 25 Mg PO DAILY I have reviewed the current psychotropics carefully including drug interactions. Risk benefit ratio favors no change other than as noted in my dictated progress note. Diagnosis: Problems: (1) Anxiety disorder (2) Schizoaffective disorder, bipolar type (3) Dementia, vascular, with delusions (4) Dementia, vascular, with depression (5) Impulse control disorder GUADALUPE DELGADO MD Feb 10, 2018 22:43
[2018-02-11 06:01] VITALS: BP 116/79
[2018-02-11] MEDS: LOSARTAN 50 MG TABLET. PO SCH (08:39)
[2018-02-11] MEDS: ASPIRIN 81 MG TAB.CHEW PO SCH (08:40)
[2018-02-11] MEDS: DULoxetine HCL 60 MG CAPSULE.DR PO SCH (08:40)
[2018-02-11] MEDS: ARIPiprazole 5 MG TABLET PO SCH (08:41)
[2018-02-11] MEDS: CARVEDILOL 6.25 MG TABLET PO SCH ×2 (08:41→16:00)
[2018-02-11] MEDS: BACLOFEN 10 MG TABLET PO SCH ×3 (08:42→19:24)
[2018-02-11] MEDS: LACTOBACILLUS RHAMNOSUS GG 1 CAPSULE. PO SCH ×2 (08:42→19:24)
[2018-02-11] MEDS: MAGNESIUM OXIDE 400 MG TABLET PO SCH (08:42)
[2018-02-11] MEDS: SPIRONOLACTONE 25 MG TABLET PO SCH (08:42)
[2018-02-11] MEDS: APIXABAN 5 MG TABLET. PO SCH ×2 (08:42→19:24)
[2018-02-11] MEDS: LIDOCAINE (700MG/PATCH) PATCH. TD SCH (08:43)
[2018-02-11] MEDS: GABAPENTIN 400 MG CAPSULE. PO SCH ×4 (08:43→19:25)
[2018-02-11] MEDS: NICOTINE 14MG PATCH. TD SCH (08:44)
[2018-02-11] MEDS: VITS A & D/LANOLIN TOPICAL OINTMENT 56GM TUBE. TP SCH ×3 (08:52→19:24)
[2018-02-11] MEDS: DRONABINOL 2.5 MG CAPSULE PO SCH ×2 (11:56→16:00)
[2018-02-11 16:23] VITALS: BP 123/75
[2018-02-11] MEDS: PATCH REMOVAL. MC SCH (19:23)
[2018-02-11] MEDS: MIRTAZAPINE 7.5 MG TABLET. PO SCH (19:24)
[2018-02-11] MEDS: ATORVASTATIN CALCIUM 20 MG TABLET PO SCH (19:24)
[2018-02-11] MEDS: MORPHINE SULFATE 10 MG/5 ML ORAL SOLUTION. PO PRN (19:49)
--- NOTE | 2018-02-11 21:01 | PN ---
DATE: 02/10/2018 This late entry 02/10/2018 covers elements not covered in my initial note. SUBJECTIVE: I met with the patient in the evening. The patient slept 6-1/2 hours previous night. Refused his breakfast, ate the rest of his meals. He gets frustrated with his expressive aphasia. REVIEW OF SYSTEMS: Ambulation impaired, in wheelchair. No CV, , pulmonary, eye, ENT system symptoms on review. MENTAL STATUS EXAM: Oriented to himself and situation. Speech is as noted consequent to his aphasia, difficult to understand. Abstraction fair, computation impaired, language function intact, attention span short. Mood and affect still somewhat depressed, withdrawn, but improved. LABORATORY DATA: Reviewed. IMPRESSION: Major neurocognitive disorder, vascular with delusion, depression. Rest unchanged. PLAN: No change from initial note. MAN Shant DELGADO MD DR: RICHY/amada JOB#: [id number] / [id number]
--- NOTE | 2018-02-11 22:41 | PDOC ---
Exam Note: Marc Note: Please also refer to the separate dictated note~for this date of service dictated separately.~Patient seen individually. Discussed the patient with Nursing staff reviewed the chart.~Reviewed interim history and current functioning. Reviewed vital signs,~Labs/ Radiology~and current medications noted below. Continue current treatment with the changes noted in the dictated addendum note Assessment: Vital Signs: Vital Signs Date Time Temp Pulse Resp B/P (MAP) Pulse Ox O2 Delivery O2 Flow Rate FiO2 02/11/18 20:51 Room Air 02/11/18 19:49 19 97 02/11/18 16:23 97.6 68 123/75 (91) I&O Intake and Output 02/11/18 07:00 Intake Total 1320 ml Balance 1320 ml Intake Oral 1320 ml # Bowel Movements 1 Current Medications: Meds: Current Medications Acetaminophen (Tylenol) 650 mg PRN Q6HRS PRN PO PAIN / TEMP Last administered on 02/11/18 08:52; Start 01/22/18 at 20:15 Multi-Ingredient Ointment (Analgesic [place]) 1 luc PRN QID PRN TP MUSCLE PAIN; Start 01/22/18 at 20:15 Al Hydroxide/Mg Hydroxide (Mylanta Plus Xs) 15 ml PRN AFTMEALHC PRN PO DYSPEPSIA; Start 01/22/18 at 20:15 Magnesium Hydroxide (Milk Of Magnesia) 2,400 mg PRN QHS PRN PO CONSTIPATION Last administered on 01/29/18at 17:21; Start 01/22/18 at 20:15 Nicotine (Nicoderm Cq 14mg) 1 patch DAILY TD Last administered on 02/11/18at 08: 44; Start 01/23/18 at 09:00 Citalopram Hydrobromide (CeleXA) 30 mg DAILY PO Last administered on 09:03; Start 01/23/18 at 09:00; Stop 01/31/18 at 17:40; Status DC Gabapentin (Neurontin) 400 mg QID PO Last administered on 02/11/18at 19:25; Start 01/23/18 at 09:00 Losartan Potassium (Cozaar) 50 mg DAILY PO Last administered on 02/11/18 08:39 ; Start 01/23/18 at 09:00 Tramadol HCl (Ultram) 50 mg PRN Q8HRS PRN PO PAIN Last administered on 20:12; Start 01/22/18 at 23:15 Acetaminophen (Tylenol) 500 mg PRN Q6HRS PRN PO PAIN; Start 01/22/18 at 23:15 Apixaban (Eliquis) 5 mg BID PO Last administered on 02/11/18 19:24; Start at 09:00 Aspirin (Children'S Aspirin) 81 mg DAILY08 PO Last administered on 02/11/18 08 :40; Start 01/23/18 at 08:00 Atorvastatin Calcium (Lipitor) 40 mg QHS PO Last administered on 02/11/18 19: 24; Start 01/23/18 at 21:00 Baclofen (Lioresal) 10 mg TID PO Last administered on 02/11/18 19:24; Start 01/23/18 at 09:00 Carvedilol (Coreg) 6.25 mg BIDWMEALS PO Last administered on 02/11/18 16:00; Start 01/23/18 at 08:00 Magnesium Oxide (Magnesium Oxide) 400 mg DAILY PO Last administered on 08:42; Start 01/23/18 at 09:00 Quetiapine Fumarate (SEROquel) 12.5 mg DAILY@1500 PO Last administered on 01/31at 15:38; Start 01/23/18 at 15:00; Stop 01/31/18 at 17:40; Status DC Quetiapine Fumarate (SEROquel) 25 mg QHS PO Last administered on 01/30/18 19: 16; Start 01/23/18 at 21:00; Stop 01/31/18 at 17:40; Status DC Spironolactone (Aldactone) 25 mg DAILY PO Last administered on 02/11/18 08:42 ; Start 01/23/18 at 09:00 Vitamin D (Vitamin D3) 50,000 unit WEEKLY PO ; Start 01/30/18 at 09:00; Stop 01/30/18 at 09:00; Status DC Iohexol (Omnipaque 240 Mg/ml) 50 ml STK-MED ONCE .ROUTE ; Start 01/23/18 at 14: 34; Stop 01/23/18 at 14:35; Status DC Iohexol (Omnipaque 300 Mg/ml) 75 ml 1X ONCE IV Last administered on 16:02; Start 01/23/18 at 16:00; Stop 01/23/18 at 16:01; Status DC Vitamin D (Vitamin D3) 50,000 unit WEEKLY PO Last administered on 02/06/18 08 :31; Start 01/23/18 at 16:15 Morphine Sulfate (Morphine Oral Solution) 5 mg PRN Q4HRS PRN PO PAIN Last administered on 02/11/18 19:49; Start 01/23/18 at 18:00 Lidocaine (Lidoderm) 1 patch DAILY TD Last administered on 01/30/18 08:57; Start 01/24/18 at 09:00; Stop 01/30/18 at 16:05; Status DC Miscellaneous (Lidoderm Patch Removal) 1 ea QHS MC Last administered on 19:23; Start 01/23/18 at 21:00; Stop 01/26/18 at 13:37; Status DC Lidocaine (Lidoderm) 1 patch DAILY TD Last administered on 02/11/18 08:43; Start 01/26/18 at 09:00 Miscellaneous (Lidoderm Patch Removal) 2 ea QHS MC Last administered on 19:23; Start 01/25/18 at 21:00 Ceftriaxone Sodium 1 gm/ Sodium Chloride 50 ml @ 100 mls/hr Q24H IV Last administered on 01/26/18 17:10; Start 01/26/18 at 17:00; Stop 01/27/18 at 13 :02; Status DC Trimethoprim/ Sulfamethoxazole (Bactrim Ds) 1 tab BID PO Last administered on 02/04/18 08:22; Start 01/27/18 at 21:00; Stop 02/04/18 at 20:59; Status DC Lactobacillus Rhamnosus (Culturelle) 1 cap BID PO Last administered on 19:24; Start 01/27/18 at 21:00 Dronabinol (Marinol) 2.5 mg BIDACLD PO Last administered on 02/11/18 16:00; Start 01/28/18 at 16:30 Citalopram Hydrobromide (CeleXA) 40 mg DAILY PO Last administered on 11/28/ 18at 08:45; Start 02/01/18 at 09:00; Stop 02/05/18 at 12:43; Status DC Aripiprazole (Abilify) 5 mg DAILY PO Last administered on 02/11/18at 08:41; Start 02/01/18 at 09:00 Vitamin A/Vitamin D (Vitamin A & D Ointment) 1 luc TID TP Last administered on 02/11/18 19:24; Start 02/04/18 at 09:00 Mirtazapine (Remeron) 7.5 mg QHS PO Last administered on 02/11/18at 19:24; Start 02/04/18 at 21:00 Mirtazapine (Remeron) 7.5 mg QHS PO ; Start 02/05/18 at 21:00; Stop 02/05/18 at 21:00; Status DC Duloxetine HCl (Cymbalta) 30 mg DAILY PO Last administered on 02/07/18at 09:41 ; Start 02/06/18 at 09:00; Stop 02/07/18 at 13:00; Status DC Duloxetine HCl (Cymbalta) 60 mg DAILY PO Last administered on 02/11/18at 08:40; Start 02/08/18 at 09:00 Active Scripts Active Reported Acetaminophen 325 Mg/10.15 Ml Solution 500 Mg PO PRN Q6HRS PRN Tramadol Hcl (Tramadol HCl) 50 Mg Tablet 50 Mg PO PRN Q8HRS PRN Seroquel (Quetiapine Fumarate) 25 Mg Tablet 25 Mg PO QHS Seroquel (Quetiapine Fumarate) 25 Mg Tablet 12.5 Mg PO DAILY@1500 Magnesium Oxide 400 Mg Tablet 400 Mg PO DAILY Losartan Potassium 50 Mg Tablet 50 Mg PO DAILY Gabapentin 100 Mg Capsule 400 Mg PO QID Eliquis (Apixaban) 5 Mg Tablet 5 Mg PO BID Celexa (Citalopram Hydrobromide) 20 Mg Tablet 30 Mg PO DAILY Carvedilol 6.25 Mg Tablet 6.25 Mg PO BID Baclofen 10 Mg Tablet 10 Mg PO TID Atorvastatin Calcium 40 Mg Tablet 40 Mg PO QHS Aspirin 81 Mg Tab.chew 81 Mg PO DAILY Aldactone (Spironolactone) 25 Mg Tablet 25 Mg PO DAILY I have reviewed the current psychotropics carefully including drug interactions. Risk benefit ratio favors no change other than as noted in my dictated progress note. Diagnosis: Problems: (1) Anxiety disorder (2) Schizoaffective disorder, bipolar type (3) Dementia, vascular, with delusions (4) Dementia, vascular, with depression (5) Impulse control disorder GUADALUPE DELGADO MD Feb 11, 2018 22:41
[2018-02-12 06:17] VITALS: BP 117/76
[2018-02-12] MEDS: NICOTINE 14MG PATCH. TD SCH (10:48)
[2018-02-12] MEDS: DULoxetine HCL 60 MG CAPSULE.DR PO SCH (10:49)
[2018-02-12] MEDS: GABAPENTIN 400 MG CAPSULE. PO SCH ×4 (10:49→19:31)
[2018-02-12] MEDS: LIDOCAINE (700MG/PATCH) PATCH. TD SCH (10:49)
[2018-02-12] MEDS: MAGNESIUM OXIDE 400 MG TABLET PO SCH (10:50)
[2018-02-12] MEDS: ARIPiprazole 5 MG TABLET PO SCH (10:50)
[2018-02-12] MEDS: LACTOBACILLUS RHAMNOSUS GG 1 CAPSULE. PO SCH ×2 (10:50→19:30)
[2018-02-12] MEDS: BACLOFEN 10 MG TABLET PO SCH ×3 (10:50→19:30)
[2018-02-12] MEDS: ASPIRIN 81 MG TAB.CHEW PO SCH (10:50)
[2018-02-12] MEDS: APIXABAN 5 MG TABLET. PO SCH ×2 (10:51→19:30)
[2018-02-12] MEDS: LOSARTAN 50 MG TABLET. PO SCH (10:51)
[2018-02-12] MEDS: SPIRONOLACTONE 25 MG TABLET PO SCH (10:51)
[2018-02-12] MEDS: CARVEDILOL 6.25 MG TABLET PO SCH ×2 (10:52→17:31)
[2018-02-12] MEDS: CHOLECALCIFEROL (VITAMIN D3) 50,000 UNIT CAPSULE PO SCH (10:52)
[2018-02-12] MEDS: VITS A & D/LANOLIN TOPICAL OINTMENT 56GM TUBE. TP SCH ×3 (11:13→19:32)
[2018-02-12] MEDS: DRONABINOL 2.5 MG CAPSULE PO SCH ×2 (12:29→17:31)
[2018-02-12 16:16] VITALS: BP 110/71
[2018-02-12] MEDS: PATCH REMOVAL. MC SCH (19:30)
[2018-02-12] MEDS: MIRTAZAPINE 7.5 MG TABLET. PO SCH (19:31)
[2018-02-12] MEDS: ATORVASTATIN CALCIUM 20 MG TABLET PO SCH (19:32)
[2018-02-12] MEDS: MORPHINE SULFATE 10 MG/5 ML ORAL SOLUTION. PO PRN (19:57)
--- NOTE | 2018-02-12 21:13 | PN ---
DATE: 02/11/2018 PSYCHIATRIC PROGRESS NOTE This late entry 02/11/2018 covers elements not covered in my initial note. SUBJECTIVE: I met with the patient in the evening. The patient slept 5-3/4 hours previous night. Per nursing report, he is doing much better. He is trying to move from her Broda chair to wheelchair, slept 5-3/4 hours. Appetite fair. He naps off and on during the day. Communication is difficult due to his expressive aphasia, otherwise pleasant, smiling as I met with him individually. REVIEW OF SYSTEMS: Ambulation impaired, in wheelchair. No CV, , pulmonary, eye, ENT system symptoms on review. Reliability poor. MENTAL STATUS EXAM: Oriented to himself and situation. Speech is difficult to understand. Abstraction fair, computation impaired, language function intact. Mood and affect is improved. Much of communication is nonverbal. LABORATORY DATA: Reviewed. IMPRESSION: Unchanged from initial note. PLAN:. No change from initial note. GUADALUPE DELGADO MD DR: RICHY/amada JOB#: [id number] / [id number]
--- NOTE | 2018-02-12 22:42 | PDOC ---
Exam Note: Marc Note: Please also refer to the separate dictated note~for this date of service dictated separately.~Patient seen individually. Discussed the patient with Nursing staff reviewed the chart.~Reviewed interim history and current functioning. Reviewed vital signs,~Labs/ Radiology~and current medications noted below. Continue current treatment with the changes noted in the dictated addendum note Assessment: Vital Signs: Vital Signs Date Time Temp Pulse Resp B/P (MAP) Pulse Ox O2 Delivery O2 Flow Rate FiO2 02/12/18 20:57 Room Air 02/12/18 19:57 18 95 02/12/18 17:31 73 110/71 02/12/18 16:16 98.3 I&O Intake and Output 02/12/18 07:00 Intake Total 1680 ml Balance 1680 ml Intake Oral 1680 ml Current Medications: Meds: Current Medications Acetaminophen (Tylenol) 650 mg PRN Q6HRS PRN PO PAIN / TEMP Last administered on 02/11/18 08:52; Start 01/22/18 at 20:15 Multi-Ingredient Ointment (Analgesic [place]) 1 luc PRN QID PRN TP MUSCLE PAIN; Start 01/22/18 at 20:15 Al Hydroxide/Mg Hydroxide (Mylanta Plus Xs) 15 ml PRN AFTMEALHC PRN PO DYSPEPSIA; Start 01/22/18 at 20:15 Magnesium Hydroxide (Milk Of Magnesia) 2,400 mg PRN QHS PRN PO CONSTIPATION Last administered on 01/29/18at 17:21; Start 01/22/18 at 20:15 Nicotine (Nicoderm Cq 14mg) 1 patch DAILY TD Last administered on 02/12/18at 10: 48; Start 01/23/18 at 09:00 Citalopram Hydrobromide (CeleXA) 30 mg DAILY PO Last administered on at 09:03; Start 01/23/18 at 09:00; Stop 01/31/18 at 17:40; Status DC Gabapentin (Neurontin) 400 mg QID PO Last administered on 02/12/18at 19:31; Start 01/23/18 at 09:00 Losartan Potassium (Cozaar) 50 mg DAILY PO Last administered on 02/12/18at 10:51 ; Start 01/23/18 at 09:00 Tramadol HCl (Ultram) 50 mg PRN Q8HRS PRN PO PAIN Last administered on 20:12; Start 01/22/18 at 23:15 Acetaminophen (Tylenol) 500 mg PRN Q6HRS PRN PO PAIN; Start 01/22/18 at 23:15 Apixaban (Eliquis) 5 mg BID PO Last administered on 02/12/18 19:30; Start at 09:00 Aspirin (Children'S Aspirin) 81 mg DAILY08 PO Last administered on 02/12/18 10 :50; Start 01/23/18 at 08:00 Atorvastatin Calcium (Lipitor) 40 mg QHS PO Last administered on 02/12/18 19: 32; Start 01/23/18 at 21:00 Baclofen (Lioresal) 10 mg TID PO Last administered on 02/12/18 19:30; Start 01/23/18 at 09:00 Carvedilol (Coreg) 6.25 mg BIDWMEALS PO Last administered on 02/12/18 17:31; Start 01/23/18 at 08:00 Magnesium Oxide (Magnesium Oxide) 400 mg DAILY PO Last administered on 10:50; Start 01/23/18 at 09:00 Quetiapine Fumarate (SEROquel) 12.5 mg DAILY@1500 PO Last administered on 01/31 15:38; Start 01/23/18 at 15:00; Stop 01/31/18 at 17:40; Status DC Quetiapine Fumarate (SEROquel) 25 mg QHS PO Last administered on 01/30/18at 19: 16; Start 01/23/18 at 21:00; Stop 01/31/18 at 17:40; Status DC Spironolactone (Aldactone) 25 mg DAILY PO Last administered on 02/12/18 10:51 ; Start 01/23/18 at 09:00 Vitamin D (Vitamin D3) 50,000 unit WEEKLY PO ; Start 01/30/18 at 09:00; Stop 01/30/18 at 09:00; Status DC Iohexol (Omnipaque 240 Mg/ml) 50 ml STK-MED ONCE .ROUTE ; Start 01/23/18 at 14: 34; Stop 01/23/18 at 14:35; Status DC Iohexol (Omnipaque 300 Mg/ml) 75 ml 1X ONCE IV Last administered on 16:02; Start 01/23/18 at 16:00; Stop 01/23/18 at 16:01; Status DC Vitamin D (Vitamin D3) 50,000 unit WEEKLY PO Last administered on 02/06/18 08 :31; Start 01/23/18 at 16:15 Morphine Sulfate (Morphine Oral Solution) 5 mg PRN Q4HRS PRN PO PAIN Last administered on 02/12/18 19:57; Start 01/23/18 at 18:00 Lidocaine (Lidoderm) 1 patch DAILY TD Last administered on 01/30/18 08:57; Start 01/24/18 at 09:00; Stop 01/30/18 at 16:05; Status DC Miscellaneous (Lidoderm Patch Removal) 1 ea QHS MC Last administered on 19:23; Start 01/23/18 at 21:00; Stop 01/26/18 at 13:37; Status DC Lidocaine (Lidoderm) 1 patch DAILY TD Last administered on 02/12/18 10:49; Start 01/26/18 at 09:00 Miscellaneous (Lidoderm Patch Removal) 2 ea QHS MC Last administered on 19:30; Start 01/25/18 at 21:00 Ceftriaxone Sodium 1 gm/ Sodium Chloride 50 ml @ 100 mls/hr Q24H IV Last administered on 01/26/18 17:10; Start 01/26/18 at 17:00; Stop 01/27/18 at 13 :02; Status DC Trimethoprim/ Sulfamethoxazole (Bactrim Ds) 1 tab BID PO Last administered on 02/04/18 08:22; Start 01/27/18 at 21:00; Stop 02/04/18 at 20:59; Status DC Lactobacillus Rhamnosus (Culturelle) 1 cap BID PO Last administered on 19:30; Start 01/27/18 at 21:00 Dronabinol (Marinol) 2.5 mg BIDACLD PO Last administered on 02/12/18 17:31; Start 01/28/18 at 16:30 Citalopram Hydrobromide (CeleXA) 40 mg DAILY PO Last administered on 11/28/ 18at 08:45; Start 02/01/18 at 09:00; Stop 02/05/18 at 12:43; Status DC Aripiprazole (Abilify) 5 mg DAILY PO Last administered on 02/12/18at 10:50; Start 02/01/18 at 09:00 Vitamin A/Vitamin D (Vitamin A & D Ointment) 1 luc TID TP Last administered on 02/12/18at 19:32; Start 02/04/18 at 09:00 Mirtazapine (Remeron) 7.5 mg QHS PO Last administered on 02/12/18at 19:31; Start 02/04/18 at 21:00 Mirtazapine (Remeron) 7.5 mg QHS PO ; Start 02/05/18 at 21:00; Stop 02/05/18 at 21:00; Status DC Duloxetine HCl (Cymbalta) 30 mg DAILY PO Last administered on 02/07/18at 09:41 ; Start 02/06/18 at 09:00; Stop 02/07/18 at 13:00; Status DC Duloxetine HCl (Cymbalta) 60 mg DAILY PO Last administered on 02/12/18at 10:49; Start 02/08/18 at 09:00 Active Scripts Active Reported Acetaminophen 325 Mg/10.15 Ml Solution 500 Mg PO PRN Q6HRS PRN Tramadol Hcl (Tramadol HCl) 50 Mg Tablet 50 Mg PO PRN Q8HRS PRN Seroquel (Quetiapine Fumarate) 25 Mg Tablet 25 Mg PO QHS Seroquel (Quetiapine Fumarate) 25 Mg Tablet 12.5 Mg PO DAILY@1500 Magnesium Oxide 400 Mg Tablet 400 Mg PO DAILY Losartan Potassium 50 Mg Tablet 50 Mg PO DAILY Gabapentin 100 Mg Capsule 400 Mg PO QID Eliquis (Apixaban) 5 Mg Tablet 5 Mg PO BID Celexa (Citalopram Hydrobromide) 20 Mg Tablet 30 Mg PO DAILY Carvedilol 6.25 Mg Tablet 6.25 Mg PO BID Baclofen 10 Mg Tablet 10 Mg PO TID Atorvastatin Calcium 40 Mg Tablet 40 Mg PO QHS Aspirin 81 Mg Tab.chew 81 Mg PO DAILY Aldactone (Spironolactone) 25 Mg Tablet 25 Mg PO DAILY I have reviewed the current psychotropics carefully including drug interactions. Risk benefit ratio favors no change other than as noted in my dictated progress note. Diagnosis: Problems: (1) Anxiety disorder (2) Schizoaffective disorder, bipolar type (3) Dementia, vascular, with delusions (4) Dementia, vascular, with depression (5) Impulse control disorder GUADALUPE DELGADO MD Feb 12, 2018 22:42
[2018-02-13 06:15] VITALS: BP 101/68
[2018-02-13] MEDS: NICOTINE 14MG PATCH. TD SCH (08:46)
[2018-02-13] MEDS: LIDOCAINE (700MG/PATCH) PATCH. TD SCH (08:47)
[2018-02-13] MEDS: GABAPENTIN 400 MG CAPSULE. PO SCH ×4 (08:48→20:16)
[2018-02-13] MEDS: ARIPiprazole 5 MG TABLET PO SCH (08:48)
[2018-02-13] MEDS: MAGNESIUM OXIDE 400 MG TABLET PO SCH (08:48)
[2018-02-13] MEDS: BACLOFEN 10 MG TABLET PO SCH ×3 (08:48→20:16)
[2018-02-13] MEDS: CARVEDILOL 6.25 MG TABLET PO SCH ×2 (08:48→17:44)
[2018-02-13] MEDS: ASPIRIN 81 MG TAB.CHEW PO SCH (08:48)
[2018-02-13] MEDS: APIXABAN 5 MG TABLET. PO SCH ×2 (08:49→20:16)
[2018-02-13] MEDS: SPIRONOLACTONE 25 MG TABLET PO SCH (08:49)
[2018-02-13] MEDS: DULoxetine HCL 60 MG CAPSULE.DR PO SCH (08:49)
[2018-02-13] MEDS: LACTOBACILLUS RHAMNOSUS GG 1 CAPSULE. PO SCH ×2 (08:49→20:16)
[2018-02-13] MEDS: CHOLECALCIFEROL (VITAMIN D3) 50,000 UNIT CAPSULE PO SCH (08:51)
[2018-02-13] MEDS: LOSARTAN 50 MG TABLET. PO SCH (08:54)
[2018-02-13] MEDS: MAGNESIUM HYDROXIDE 2,400 MG/30 ML ORAL.SUSP. PO PRN (09:20)
[2018-02-13] MEDS: DRONABINOL 2.5 MG CAPSULE PO SCH ×3 (11:27→16:30)
[2018-02-13] MEDS: VITS A & D/LANOLIN TOPICAL OINTMENT 56GM TUBE. TP SCH ×3 (14:00→20:16)
[2018-02-13 16:03] VITALS: BP 125/77
[2018-02-13] MEDS: ATORVASTATIN CALCIUM 20 MG TABLET PO SCH (20:16)
[2018-02-13] MEDS: MIRTAZAPINE 7.5 MG TABLET. PO SCH (20:16)
[2018-02-13] MEDS: PATCH REMOVAL. MC SCH (20:17)
[2018-02-13] MEDS: traMADol 50 MG TABLET PO PRN (20:20)
--- NOTE | 2018-02-13 22:18 | PN ---
DATE: 02/12/2018 PSYCHIATRIC PROGRESS NOTE This late entry 02/12/2018 covers elements not covered in my initial note. SUBJECTIVE: I met with the patient in the evening. The patient slept 6-3/4 hours previous night. He has been cooperative, appetite has been aggressive. REVIEW OF SYSTEMS: Impaired ambulation, in wheelchair. He did have a shave. No CV, , pulmonary, eye, ENT system symptoms on review. He does have expressive aphasia. MENTAL STATUS EXAM: Oriented to himself, situation receptive language skills, much better than expressive, abstraction fair, computation impaired, language function intact, attention span short. Mood and affect less depressed, less withdrawn. LABORATORY DATA: Reviewed. IMPRESSION: Major depressive disorder in partial remission; major neurocognitive disorder, Alzheimer, vascular with depression, in partial remission, status post cerebrovascular accident. Rest unchanged. PLAN: No change from initial note. MAN Shant DELGADO MD DR: RICHY/amada JOB#: [id number] / [id number]
--- NOTE | 2018-02-13 22:45 | PDOC ---
Exam Note: Marc Note: Please also refer to the separate dictated note~for this date of service dictated separately.~Patient seen individually. Discussed the patient with Nursing staff reviewed the chart.~Reviewed interim history and current functioning. Reviewed vital signs,~Labs/ Radiology~and current medications noted below. Continue current treatment with the changes noted in the dictated addendum note Assessment: Vital Signs: Vital Signs Date Time Temp Pulse Resp B/P (MAP) Pulse Ox O2 Delivery O2 Flow Rate FiO2 02/13/18 21:20 96 02/13/18 17:44 69 125/77 02/13/18 16:03 98.0 20 Room Air I&O Intake and Output 02/13/18 07:00 Intake Total 1440 ml Balance 1440 ml Intake Oral 1440 ml Current Medications: Meds: Current Medications Acetaminophen (Tylenol) 650 mg PRN Q6HRS PRN PO PAIN / TEMP Last administered on 02/11/18 08:52; Start 01/22/18 at 20:15 Multi-Ingredient Ointment (Analgesic [place]) 1 luc PRN QID PRN TP MUSCLE PAIN; Start 01/22/18 at 20:15 Al Hydroxide/Mg Hydroxide (Mylanta Plus Xs) 15 ml PRN AFTMEALHC PRN PO DYSPEPSIA; Start 01/22/18 at 20:15 Magnesium Hydroxide (Milk Of Magnesia) 2,400 mg PRN QHS PRN PO CONSTIPATION Last administered on 02/13/18at 09:20; Start 01/22/18 at 20:15 Nicotine (Nicoderm Cq 14mg) 1 patch DAILY TD Last administered on 02/13/18at 08: 46; Start 01/23/18 at 09:00 Citalopram Hydrobromide (CeleXA) 30 mg DAILY PO Last administered on at 09:03; Start 01/23/18 at 09:00; Stop 01/31/18 at 17:40; Status DC Gabapentin (Neurontin) 400 mg QID PO Last administered on 02/13/18at 20:16; Start 01/23/18 at 09:00 Losartan Potassium (Cozaar) 50 mg DAILY PO Last administered on 02/13/18at 08:54 ; Start 01/23/18 at 09:00 Tramadol HCl (Ultram) 50 mg PRN Q8HRS PRN PO PAIN Last administered on 20:20; Start 01/22/18 at 23:15 Acetaminophen (Tylenol) 500 mg PRN Q6HRS PRN PO PAIN; Start 01/22/18 at 23:15 Apixaban (Eliquis) 5 mg BID PO Last administered on 02/13/18 20:16; Start at 09:00 Aspirin (Children'S Aspirin) 81 mg DAILY08 PO Last administered on 02/13/18at 08 :48; Start 01/23/18 at 08:00 Atorvastatin Calcium (Lipitor) 40 mg QHS PO Last administered on 02/13/18 20: 16; Start 01/23/18 at 21:00 Baclofen (Lioresal) 10 mg TID PO Last administered on 02/13/18 20:16; Start 01/23/18 at 09:00 Carvedilol (Coreg) 6.25 mg BIDWMEALS PO Last administered on 02/13/18 17:44; Start 01/23/18 at 08:00 Magnesium Oxide (Magnesium Oxide) 400 mg DAILY PO Last administered on at 08:48; Start 01/23/18 at 09:00 Quetiapine Fumarate (SEROquel) 12.5 mg DAILY@1500 PO Last administered on 01/31at 15:38; Start 01/23/18 at 15:00; Stop 01/31/18 at 17:40; Status DC Quetiapine Fumarate (SEROquel) 25 mg QHS PO Last administered on 01/30/18at 19: 16; Start 01/23/18 at 21:00; Stop 01/31/18 at 17:40; Status DC Spironolactone (Aldactone) 25 mg DAILY PO Last administered on 02/13/18 08:49 ; Start 01/23/18 at 09:00 Vitamin D (Vitamin D3) 50,000 unit WEEKLY PO ; Start 01/30/18 at 09:00; Stop 01/30/18 at 09:00; Status DC Iohexol (Omnipaque 240 Mg/ml) 50 ml STK-MED ONCE .ROUTE ; Start 01/23/18 at 14: 34; Stop 01/23/18 at 14:35; Status DC Iohexol (Omnipaque 300 Mg/ml) 75 ml 1X ONCE IV Last administered on 16:02; Start 01/23/18 at 16:00; Stop 01/23/18 at 16:01; Status DC Vitamin D (Vitamin D3) 50,000 unit WEEKLY PO Last administered on 02/13/18 08: 51; Start 01/23/18 at 16:15 Morphine Sulfate (Morphine Oral Solution) 5 mg PRN Q4HRS PRN PO PAIN Last administered on 02/12/18 19:57; Start 01/23/18 at 18:00 Lidocaine (Lidoderm) 1 patch DAILY TD Last administered on 01/30/18 08:57; Start 01/24/18 at 09:00; Stop 01/30/18 at 16:05; Status DC Miscellaneous (Lidoderm Patch Removal) 1 ea QHS MC Last administered on 19:23; Start 01/23/18 at 21:00; Stop 01/26/18 at 13:37; Status DC Lidocaine (Lidoderm) 1 patch DAILY TD Last administered on 02/13/18 08:47; Start 01/26/18 at 09:00 Miscellaneous (Lidoderm Patch Removal) 2 ea QHS MC Last administered on 20:17; Start 01/25/18 at 21:00 Ceftriaxone Sodium 1 gm/ Sodium Chloride 50 ml @ 100 mls/hr Q24H IV Last administered on 01/26/18 17:10; Start 01/26/18 at 17:00; Stop 01/27/18 at 13 :02; Status DC Trimethoprim/ Sulfamethoxazole (Bactrim Ds) 1 tab BID PO Last administered on 02/04/18at 08:22; Start 01/27/18 at 21:00; Stop 02/04/18 at 20:59; Status DC Lactobacillus Rhamnosus (Culturelle) 1 cap BID PO Last administered on 20:16; Start 01/27/18 at 21:00 Dronabinol (Marinol) 2.5 mg BIDACLD PO Last administered on 02/12/18 17:31; Start 01/28/18 at 16:30; Stop 02/13/18 at 19:38; Status DC Citalopram Hydrobromide (CeleXA) 40 mg DAILY PO Last administered on at 08:45; Start 02/01/18 at 09:00; Stop 02/05/18 at 12:43; Status DC Aripiprazole (Abilify) 5 mg DAILY PO Last administered on 02/13/18at 08:48; Start 02/01/18 at 09:00; Stop 02/13/18 at 11:56; Status DC Vitamin A/Vitamin D (Vitamin A & D Ointment) 1 luc TID TP Last administered on 02/13/18at 20:16; Start 02/04/18 at 09:00 Mirtazapine (Remeron) 7.5 mg QHS PO Last administered on 02/13/18at 20:16; Start 02/04/18 at 21:00 Mirtazapine (Remeron) 7.5 mg QHS PO ; Start 02/05/18 at 21:00; Stop 02/05/18 at 21:00; Status DC Duloxetine HCl (Cymbalta) 30 mg DAILY PO Last administered on 02/07/18at 09:41 ; Start 02/06/18 at 09:00; Stop 02/07/18 at 13:00; Status DC Duloxetine HCl (Cymbalta) 60 mg DAILY PO Last administered on 02/13/18at 08:49; Start 02/08/18 at 09:00 Aripiprazole (Abilify) 2.5 mg DAILY PO ; Start 02/14/18 at 09:00 Active Scripts Active Reported Acetaminophen 325 Mg/10.15 Ml Solution 500 Mg PO PRN Q6HRS PRN Tramadol Hcl (Tramadol HCl) 50 Mg Tablet 50 Mg PO PRN Q8HRS PRN Seroquel (Quetiapine Fumarate) 25 Mg Tablet 25 Mg PO QHS Seroquel (Quetiapine Fumarate) 25 Mg Tablet 12.5 Mg PO DAILY@1500 Magnesium Oxide 400 Mg Tablet 400 Mg PO DAILY Losartan Potassium 50 Mg Tablet 50 Mg PO DAILY Gabapentin 100 Mg Capsule 400 Mg PO QID Eliquis (Apixaban) 5 Mg Tablet 5 Mg PO BID Celexa (Citalopram Hydrobromide) 20 Mg Tablet 30 Mg PO DAILY Carvedilol 6.25 Mg Tablet 6.25 Mg PO BID Baclofen 10 Mg Tablet 10 Mg PO TID Atorvastatin Calcium 40 Mg Tablet 40 Mg PO QHS Aspirin 81 Mg Tab.chew 81 Mg PO DAILY Aldactone (Spironolactone) 25 Mg Tablet 25 Mg PO DAILY I have reviewed the current psychotropics carefully including drug interactions. Risk benefit ratio favors no change other than as noted in my dictated progress note. Diagnosis: Problems: (1) Anxiety disorder (2) Schizoaffective disorder, bipolar type (3) Dementia, vascular, with delusions (4) Dementia, vascular, with depression (5) Impulse control disorder GUADALUPE DELGADO MD Feb 13, 2018 22:45
[2018-02-14 06:03] VITALS: BP 118/76
[2018-02-14] MEDS: NICOTINE 14MG PATCH. TD SCH (08:56)
[2018-02-14] MEDS: LIDOCAINE (700MG/PATCH) PATCH. TD SCH (08:57)
[2018-02-14] MEDS: BACLOFEN 10 MG TABLET PO SCH ×3 (08:59→19:39)
[2018-02-14] MEDS: DULoxetine HCL 60 MG CAPSULE.DR PO SCH (08:59)
[2018-02-14] MEDS: MAGNESIUM OXIDE 400 MG TABLET PO SCH (09:00)
[2018-02-14] MEDS: SPIRONOLACTONE 25 MG TABLET PO SCH (09:00)
[2018-02-14] MEDS: ASPIRIN 81 MG TAB.CHEW PO SCH (09:00)
[2018-02-14] MEDS: GABAPENTIN 400 MG CAPSULE. PO SCH ×4 (09:00→19:39)
[2018-02-14] MEDS: LACTOBACILLUS RHAMNOSUS GG 1 CAPSULE. PO SCH ×2 (09:00→19:39)
[2018-02-14] MEDS: APIXABAN 5 MG TABLET. PO SCH ×2 (09:02→19:39)
[2018-02-14] MEDS: ARIPiprazole 5 MG TABLET PO SCH (09:04)
[2018-02-14] MEDS: traMADol 50 MG TABLET PO PRN ×2 (09:09→19:41)
[2018-02-14] MEDS: VITS A & D/LANOLIN TOPICAL OINTMENT 56GM TUBE. TP SCH ×3 (09:17→19:41)
[2018-02-14 09:34] VITALS: BP 141/94
[2018-02-14] MEDS: LOSARTAN 50 MG TABLET. PO SCH (09:35)
[2018-02-14] MEDS: CARVEDILOL 6.25 MG TABLET PO SCH ×2 (09:36→18:39)
[2018-02-14 16:46] VITALS: BP 124/79
[2018-02-14] MEDS: ATORVASTATIN CALCIUM 20 MG TABLET PO SCH (19:39)
[2018-02-14] MEDS: MIRTAZAPINE 7.5 MG TABLET. PO SCH (19:39)
[2018-02-14] MEDS: PATCH REMOVAL. MC SCH (19:39)
--- NOTE | 2018-02-14 21:35 | PN ---
DATE: 02/13/2018 PSYCHIATRIC PROGRESS NOTE This late entry 02/13/2018 covers elements not covered in my initial note. SUBJECTIVE: I met with the patient in the evening. The patient was also staffed at a treatment team meeting with the entire team in the morning. Appetite 70%, slept 8 hours previous evening. Mood has improved. REVIEW OF SYSTEMS: Ambulation impaired, in wheelchair, difficulty expressing himself, expressive aphasia. No CV, , pulmonary, eye system symptoms on review. MENTAL STATUS EXAM: Oriented to himself and situation. Speech impaired due to aphasia, abstraction fair, computation impaired, language function intact. Mood and affect, smiling more individually. Appetite is better. LABORATORY DATA: Reviewed. IMPRESSION: Major depressive disorder, recurrent; major neurocognitive disorder, vascular with depression. Rest unchanged. PLAN: Reduce Abilify from 5 mg a day to 2.5 mg a day and we will stop the Marinol as well. As his appetite is reasonable, continue Cymbalta, lower dosage of Abilify , and Remeron for now. MAN Shant DELGADO MD DR: RICHY/amada JOB#: [id number] / [id number]
--- NOTE | 2018-02-14 22:30 | PDOC ---
Exam Note: Marc Note: Please also refer to the separate dictated note~for this date of service dictated separately.~Patient seen individually. Discussed the patient with Nursing staff reviewed the chart.~Reviewed interim history and current functioning. Reviewed vital signs,~Labs/ Radiology~and current medications noted below. Continue current treatment with the changes noted in the dictated addendum note Assessment: Vital Signs: Vital Signs Date Time Temp Pulse Resp B/P (MAP) Pulse Ox O2 Delivery O2 Flow Rate FiO2 02/14/18 20:41 96 02/14/18 18:39 75 124/79 02/14/18 16:46 97.3 20 Room Air I&O Intake and Output 02/14/18 07:00 Intake Total 720 ml Output Total 400 ml Balance 320 ml Intake Oral 720 ml Output Urine Total 400 ml # Voids 1 # Bowel Movements 1 Current Medications: Meds: Current Medications Acetaminophen (Tylenol) 650 mg PRN Q6HRS PRN PO PAIN / TEMP Last administered on 02/11/18 08:52; Start 01/22/18 at 20:15 Multi-Ingredient Ointment (Analgesic [place]) 1 luc PRN QID PRN TP MUSCLE PAIN; Start 01/22/18 at 20:15 Al Hydroxide/Mg Hydroxide (Mylanta Plus Xs) 15 ml PRN AFTMEALHC PRN PO DYSPEPSIA; Start 01/22/18 at 20:15 Magnesium Hydroxide (Milk Of Magnesia) 2,400 mg PRN QHS PRN PO CONSTIPATION Last administered on 02/13/18at 09:20; Start 01/22/18 at 20:15 Nicotine (Nicoderm Cq 14mg) 1 patch DAILY TD Last administered on 02/14/18at 08: 56; Start 01/23/18 at 09:00 Citalopram Hydrobromide (CeleXA) 30 mg DAILY PO Last administered on 09:03; Start 01/23/18 at 09:00; Stop 01/31/18 at 17:40; Status DC Gabapentin (Neurontin) 400 mg QID PO Last administered on 02/14/18at 19:39; Start 01/23/18 at 09:00 Losartan Potassium (Cozaar) 50 mg DAILY PO Last administered on 02/14/18at 09:35 ; Start 01/23/18 at 09:00 Tramadol HCl (Ultram) 50 mg PRN Q8HRS PRN PO PAIN Last administered on at 19:41; Start 01/22/18 at 23:15 Acetaminophen (Tylenol) 500 mg PRN Q6HRS PRN PO PAIN; Start 01/22/18 at 23:15 Apixaban (Eliquis) 5 mg BID PO Last administered on 02/14/18 19:39; Start at 09:00 Aspirin (Children'S Aspirin) 81 mg DAILY08 PO Last administered on 02/14/18 09 :00; Start 01/23/18 at 08:00 Atorvastatin Calcium (Lipitor) 40 mg QHS PO Last administered on 02/14/18 19: 39; Start 01/23/18 at 21:00 Baclofen (Lioresal) 10 mg TID PO Last administered on 02/14/18 19:39; Start 01/23/18 at 09:00 Carvedilol (Coreg) 6.25 mg BIDWMEALS PO Last administered on 02/14/18 18:39; Start 01/23/18 at 08:00 Magnesium Oxide (Magnesium Oxide) 400 mg DAILY PO Last administered on 09:00; Start 01/23/18 at 09:00 Quetiapine Fumarate (SEROquel) 12.5 mg DAILY@1500 PO Last administered on 01/31at 15:38; Start 01/23/18 at 15:00; Stop 01/31/18 at 17:40; Status DC Quetiapine Fumarate (SEROquel) 25 mg QHS PO Last administered on 01/30/18at 19: 16; Start 01/23/18 at 21:00; Stop 01/31/18 at 17:40; Status DC Spironolactone (Aldactone) 25 mg DAILY PO Last administered on 02/14/18 09:00 ; Start 01/23/18 at 09:00 Vitamin D (Vitamin D3) 50,000 unit WEEKLY PO ; Start 01/30/18 at 09:00; Stop 01/30/18 at 09:00; Status DC Iohexol (Omnipaque 240 Mg/ml) 50 ml STK-MED ONCE .ROUTE ; Start 01/23/18 at 14: 34; Stop 01/23/18 at 14:35; Status DC Iohexol (Omnipaque 300 Mg/ml) 75 ml 1X ONCE IV Last administered on 16:02; Start 01/23/18 at 16:00; Stop 01/23/18 at 16:01; Status DC Vitamin D (Vitamin D3) 50,000 unit WEEKLY PO Last administered on 02/13/18 08: 51; Start 01/23/18 at 16:15 Morphine Sulfate (Morphine Oral Solution) 5 mg PRN Q4HRS PRN PO PAIN Last administered on 02/12/18 19:57; Start 01/23/18 at 18:00 Lidocaine (Lidoderm) 1 patch DAILY TD Last administered on 01/30/18 08:57; Start 01/24/18 at 09:00; Stop 01/30/18 at 16:05; Status DC Miscellaneous (Lidoderm Patch Removal) 1 ea QHS MC Last administered on at 19:23; Start 01/23/18 at 21:00; Stop 01/26/18 at 13:37; Status DC Lidocaine (Lidoderm) 1 patch DAILY TD Last administered on 02/14/18 08:57; Start 01/26/18 at 09:00 Miscellaneous (Lidoderm Patch Removal) 2 ea QHS MC Last administered on 19:39; Start 01/25/18 at 21:00 Ceftriaxone Sodium 1 gm/ Sodium Chloride 50 ml @ 100 mls/hr Q24H IV Last administered on 01/26/18at 17:10; Start 01/26/18 at 17:00; Stop 01/27/18 at 13 :02; Status DC Trimethoprim/ Sulfamethoxazole (Bactrim Ds) 1 tab BID PO Last administered on 02/04/18 08:22; Start 01/27/18 at 21:00; Stop 02/04/18 at 20:59; Status DC Lactobacillus Rhamnosus (Culturelle) 1 cap BID PO Last administered on 19:39; Start 01/27/18 at 21:00 Dronabinol (Marinol) 2.5 mg BIDACLD PO Last administered on 02/12/18 17:31; Start 01/28/18 at 16:30; Stop 02/13/18 at 19:38; Status DC Citalopram Hydrobromide (CeleXA) 40 mg DAILY PO Last administered on at 08:45; Start 02/01/18 at 09:00; Stop 02/05/18 at 12:43; Status DC Aripiprazole (Abilify) 5 mg DAILY PO Last administered on 02/13/18at 08:48; Start 02/01/18 at 09:00; Stop 02/13/18 at 11:56; Status DC Vitamin A/Vitamin D (Vitamin A & D Ointment) 1 luc TID TP Last administered on 02/14/18at 19:41; Start 02/04/18 at 09:00 Mirtazapine (Remeron) 7.5 mg QHS PO Last administered on 02/14/18at 19:39; Start 02/04/18 at 21:00 Mirtazapine (Remeron) 7.5 mg QHS PO ; Start 02/05/18 at 21:00; Stop 02/05/18 at 21:00; Status DC Duloxetine HCl (Cymbalta) 30 mg DAILY PO Last administered on 02/07/18at 09:41 ; Start 02/06/18 at 09:00; Stop 02/07/18 at 13:00; Status DC Duloxetine HCl (Cymbalta) 60 mg DAILY PO Last administered on 02/14/18at 08:59; Start 02/08/18 at 09:00 Aripiprazole (Abilify) 2.5 mg DAILY PO Last administered on 02/14/18at 09:04; Start 02/14/18 at 09:00 Active Scripts Active Reported Acetaminophen 325 Mg/10.15 Ml Solution 500 Mg PO PRN Q6HRS PRN Tramadol Hcl (Tramadol HCl) 50 Mg Tablet 50 Mg PO PRN Q8HRS PRN Seroquel (Quetiapine Fumarate) 25 Mg Tablet 25 Mg PO QHS Seroquel (Quetiapine Fumarate) 25 Mg Tablet 12.5 Mg PO DAILY@1500 Magnesium Oxide 400 Mg Tablet 400 Mg PO DAILY Losartan Potassium 50 Mg Tablet 50 Mg PO DAILY Gabapentin 100 Mg Capsule 400 Mg PO QID Eliquis (Apixaban) 5 Mg Tablet 5 Mg PO BID Celexa (Citalopram Hydrobromide) 20 Mg Tablet 30 Mg PO DAILY Carvedilol 6.25 Mg Tablet 6.25 Mg PO BID Baclofen 10 Mg Tablet 10 Mg PO TID Atorvastatin Calcium 40 Mg Tablet 40 Mg PO QHS Aspirin 81 Mg Tab.chew 81 Mg PO DAILY Aldactone (Spironolactone) 25 Mg Tablet 25 Mg PO DAILY I have reviewed the current psychotropics carefully including drug interactions. Risk benefit ratio favors no change other than as noted in my dictated progress note. Diagnosis: Problems: (1) Anxiety disorder (2) Schizoaffective disorder, bipolar type (3) Dementia, vascular, with delusions (4) Dementia, vascular, with depression (5) Impulse control disorder GUADALUPE DELGADO MD Feb 14, 2018 22:29
[2018-02-15 05:46] VITALS: BP 127/80
[2018-02-15 06:28] LABS: BASO # 0.1 x10^3/uL (0.0-0.2); BASO % 1 % (0-3); EOS # 0.6 x10^3/uL (0.0-0.7); EOS % 8 % (0-3); HEMATOCRIT 41.5 % (39.0-53.0); HEMOGLOBIN 14.2 g/dL (13.0-17.5); LYMPH # 2.4 x10^3/uL (1.0-4.8); LYMPH % 30 % (24-48); MEAN CORPUSCULAR HEMOGLOBIN 30 pg (25-35); MEAN CORPUSCULAR HGB CONC 34 g/dL (31-37); MEAN CORPUSCULAR VOLUME 89 fL (79-100); MONO # 0.7 x10^3/uL (0.0-1.1); MONO % 9 % (0-9); NEUT # 4.1 x10^3uL (1.8-7.7); NEUT % 51 % (31-73); PLATELET COUNT 343 x10^3/uL (140-400); RED BLOOD COUNT 4.67 x10^6/uL (4.30-5.70); RED CELL DISTRIBUTION WIDTH 14.1 % (11.5-14.5); WHITE BLOOD COUNT 7.9 x10^3/uL (4.0-11.0)
[2018-02-15 06:50] LABS: ALBUMIN 2.9 g/dL (3.4-5.0); ALBUMIN/GLOBULIN RATIO 0.7 (1.0-1.7); CREATININE 0.8 mg/dL (0.7-1.3); GFR 99.3; MAGNESIUM 1.7 mg/dL (1.8-2.4); POTASSIUM 4.3 mmol/L (3.5-5.1); TOTAL BILIRUBIN 0.4 mg/dL (0.2-1.0); TOTAL PROTEIN 7.1 g/dL (6.4-8.2)
[2018-02-15] MEDS: LIDOCAINE (700MG/PATCH) PATCH. TD SCH (07:49)
[2018-02-15] MEDS: NICOTINE 14MG PATCH. TD SCH (07:49)
[2018-02-15] MEDS: BACLOFEN 10 MG TABLET PO SCH ×3 (07:50→19:30)
[2018-02-15] MEDS: ARIPiprazole 5 MG TABLET PO SCH (07:50)
[2018-02-15] MEDS: LACTOBACILLUS RHAMNOSUS GG 1 CAPSULE. PO SCH ×2 (07:50→19:30)
[2018-02-15] MEDS: MAGNESIUM OXIDE 400 MG TABLET PO SCH (07:51)
[2018-02-15] MEDS: APIXABAN 5 MG TABLET. PO SCH ×2 (07:51→19:30)
[2018-02-15] MEDS: DULoxetine HCL 60 MG CAPSULE.DR PO SCH (07:51)
[2018-02-15] MEDS: SPIRONOLACTONE 25 MG TABLET PO SCH (07:51)
[2018-02-15] MEDS: GABAPENTIN 400 MG CAPSULE. PO SCH ×4 (07:51→19:31)
[2018-02-15] MEDS: ASPIRIN 81 MG TAB.CHEW PO SCH (07:51)
[2018-02-15] MEDS: CARVEDILOL 6.25 MG TABLET PO SCH ×2 (07:52→16:51)
[2018-02-15] MEDS: LOSARTAN 50 MG TABLET. PO SCH (07:52)
[2018-02-15] MEDS: VITS A & D/LANOLIN TOPICAL OINTMENT 56GM TUBE. TP SCH ×3 (07:56→19:31)
[2018-02-15] MEDS: traMADol 50 MG TABLET PO PRN (09:08)
[2018-02-15] MEDS: MORPHINE SULFATE 10 MG/5 ML ORAL SOLUTION. PO PRN ×2 (13:29→19:32)
[2018-02-15 15:44] VITALS: BP 126/86
[2018-02-15] MEDS: ATORVASTATIN CALCIUM 20 MG TABLET PO SCH (19:30)
[2018-02-15] MEDS: PATCH REMOVAL. MC SCH (19:30)
[2018-02-15] MEDS: MIRTAZAPINE 7.5 MG TABLET. PO SCH (19:31)
--- NOTE | 2018-02-15 21:10 | PN ---
DATE: 02/15/2018 SUBJECTIVE: The patient was seen today, met with the staff, chart reviewed and also covering for Dr. West. The patient continues to show improvement. The patient is not admitting to feeling depressed. The patient is positive with his thinking. He is not having any negative thoughts. No major mood swings. OBSERVATION: VITAL SIGNS: Temperature 97.1, blood pressure 127/80, pulse 61, respirations 20, O2 sat 94%. Slept about 8 hours last night. The patient's appetite has improved. MEDICATIONS: The patient's medications reviewed and also the labs. The patient is not having any side effects. ASSESSMENT: 1. Major depressive disorder, recurrent. 2. Major neurocognitive disorder, vascular with depression. PLAN: Continue with treatment. The patient is scheduled for discharge on 02/17/2018. DELIA HARMAN MD DR: MELONY/amada JOB#: [id number] / [id number]
--- NOTE | 2018-02-15 22:18 | PN ---
DATE: 02/14/2018 This late entry for 02/14/2018 covers elements not covered in my initial note. SUBJECTIVE: I met with the patient in the evening. The patient slept 5 hours previous evening. He has been less withdrawn. Previous night, he was somewhat agitated. After shower, resistive to this; otherwise, complaint. Appetite fair. Dietitian is changing his diet to a regular diet. He takes nap during his breakfast. REVIEW OF SYSTEMS: Ambulation impaired, in a wheelchair. No CV, , pulmonary, eye, ENT system symptoms on review. Reliability poor. He does have expressive aphasia and cognitive deficits. MENTAL STATUS EXAM: Oriented to himself and situation. Speech coherent, difficult to understand due to his aphasia, much communication would be as nonverbal. Abstraction fair, computation impaired, language function intact, attention span short. Mood and affect, lability is improved. LABORATORY DATA: Reviewed. IMPRESSION: Major depressive disorder in partial remission; major neurocognitive disorder, vascular with depression, delusion. Rest unchanged. PLAN: No change from initial note. GUADALUPE DELGADO MD DR: RICHY/amada JOB#: [id number] / [id number]
[2018-02-16 06:02] VITALS: BP 115/73
[2018-02-16] MEDS: MORPHINE SULFATE 10 MG/5 ML ORAL SOLUTION. PO PRN ×3 (08:07→17:00)
[2018-02-16] MEDS: ASPIRIN 81 MG TAB.CHEW PO SCH (08:08)
[2018-02-16] MEDS: ARIPiprazole 5 MG TABLET PO SCH (08:09)
[2018-02-16] MEDS: CARVEDILOL 6.25 MG TABLET PO SCH ×2 (08:09→16:59)
[2018-02-16] MEDS: SPIRONOLACTONE 25 MG TABLET PO SCH (08:09)
[2018-02-16] MEDS: APIXABAN 5 MG TABLET. PO SCH ×2 (08:10→19:43)
[2018-02-16] MEDS: LACTOBACILLUS RHAMNOSUS GG 1 CAPSULE. PO SCH ×2 (08:10→19:42)
[2018-02-16] MEDS: MAGNESIUM OXIDE 400 MG TABLET PO SCH (08:10)
[2018-02-16] MEDS: BACLOFEN 10 MG TABLET PO SCH ×3 (08:10→19:43)
[2018-02-16] MEDS: DULoxetine HCL 60 MG CAPSULE.DR PO SCH (08:10)
[2018-02-16] MEDS: LOSARTAN 50 MG TABLET. PO SCH (08:10)
[2018-02-16] MEDS: GABAPENTIN 400 MG CAPSULE. PO SCH ×4 (08:11→19:42)
[2018-02-16] MEDS: NICOTINE 14MG PATCH. TD SCH (08:11)
[2018-02-16] MEDS: VITS A & D/LANOLIN TOPICAL OINTMENT 56GM TUBE. TP SCH ×3 (08:11→19:44)
[2018-02-16] MEDS: LIDOCAINE (700MG/PATCH) PATCH. TD SCH (08:11)
--- NOTE | 2018-02-16 10:11 | EKG ---
[address] [address] Test Date: 2018-02-16 Test Time: 10:08:39 Pat Name: SYBIL VALIENTE Department: Room: [facility] Gender: M Wire Repairer: : 1960 Requested By: SALVATORE MICHELLE Order Number: [id number] Reading MD: Measurements Intervals Marshall Rate: 67 P: CO: QRS: 68 QRSD: 100 T: 62 QT: 426 QTc: 453 Interpretive Statements IRREGULAR RHYTHM, NO P-WAVE FOUND LOW LIMB LEAD VOLTAGE NO SPECIFIC ECG ABNORMALITIES RI6.01 Compared to ECG 01/22/2018 20:15:14 Myocardial infarct finding no longer present
[2018-02-16 16:33] VITALS: BP 130/82
[2018-02-16] MEDS: MIRTAZAPINE 7.5 MG TABLET. PO SCH (19:42)
[2018-02-16] MEDS: ATORVASTATIN CALCIUM 20 MG TABLET PO SCH (19:45)
[2018-02-16] MEDS: PATCH REMOVAL. MC SCH (19:45)
--- NOTE | 2018-02-16 20:18 | PN ---
DATE: 02/16/2018 SUBJECTIVE: The patient was seen today, met with the staff, chart reviewed. Staff reports no major change in his behavior except he is complaining of palpitations and feeling uncomfortable and the patient was seen by the primary care doctor to evaluate. OBSERVATION: VITAL SIGNS: Temperature 97.6, blood pressure 115/73, pulse 75, respirations 16, O2 sat 94%. Slept about 8 hours last night. His appetite improved. The patient is not depressed. The patient apparently is in the process of discharge back to [facility], but because of his recent complaint, because of palpitations, we will decide discharge or for the medical evaluation. The patient's medications reviewed. The patient is not having any side effects. ASSESSMENT: 1. Major depressive disorder, recurrent. 2. Major neurocognitive disorder, vascular with depression. PLAN: Continue with the treatment. The patient is scheduled for discharge in the next few days. DELIA HARMAN MD DR: MELONY/amada JOB#: [id number] / [id number]
[2018-02-16] MEDS: traMADol 50 MG TABLET PO PRN (20:37)
[2018-02-17 06:05] VITALS: BP 115/71
[2018-02-17] MEDS: ASPIRIN 81 MG TAB.CHEW PO SCH ×2 (08:50→13:45)
[2018-02-17] MEDS: CARVEDILOL 6.25 MG TABLET PO SCH ×3 (08:50→17:07)
[2018-02-17] MEDS: BACLOFEN 10 MG TABLET PO SCH ×4 (08:51→21:19)
[2018-02-17] MEDS: LOSARTAN 50 MG TABLET. PO SCH ×2 (08:51→13:47)
[2018-02-17] MEDS: SPIRONOLACTONE 25 MG TABLET PO SCH ×2 (08:51→13:47)
[2018-02-17] MEDS: LACTOBACILLUS RHAMNOSUS GG 1 CAPSULE. PO SCH ×3 (08:51→21:19)
[2018-02-17] MEDS: MAGNESIUM OXIDE 400 MG TABLET PO SCH ×2 (08:51→13:47)
[2018-02-17] MEDS: LIDOCAINE (700MG/PATCH) PATCH. TD SCH ×2 (08:51→13:48)
[2018-02-17] MEDS: NICOTINE 14MG PATCH. TD SCH ×2 (08:51→13:48)
[2018-02-17] MEDS: APIXABAN 5 MG TABLET. PO SCH ×3 (08:51→21:19)
[2018-02-17] MEDS: GABAPENTIN 400 MG CAPSULE. PO SCH ×5 (08:51→21:18)
[2018-02-17] MEDS: ARIPiprazole 5 MG TABLET PO SCH ×2 (08:51→13:46)
[2018-02-17] MEDS: DULoxetine HCL 60 MG CAPSULE.DR PO SCH ×2 (08:51→13:47)
[2018-02-17] MEDS: VITS A & D/LANOLIN TOPICAL OINTMENT 56GM TUBE. TP SCH ×4 (08:52→21:19)
[2018-02-17] MEDS: traMADol 50 MG TABLET PO PRN (13:37)
[2018-02-17 15:55] VITALS: BP 111/64
[2018-02-17] MEDS ORDERED: oxyCODONE/APAP 5/325 1 TAB TABLET PO PRN (18:30)
[2018-02-17] MEDS: PATCH REMOVAL. MC SCH (21:00)
[2018-02-17] MEDS: MIRTAZAPINE 7.5 MG TABLET. PO SCH (21:19)
[2018-02-17] MEDS: ATORVASTATIN CALCIUM 20 MG TABLET PO SCH (21:19)
--- NOTE | 2018-02-18 00:12 | PN ---
DATE: 02/17/2018 SUBJECTIVE: The patient was seen today. The patient continues to show improvement. The patient is scheduled for discharge tomorrow. The patient is still exhibiting some mood swings and also trying to spit out some of the medications he is supposed to be taking. The patient is currently not exhibiting any psychotic symptoms and he is not depressed, not expressing any suicidal thoughts. The patient is not exhibiting any psychotic symptoms. OBSERVATION: VITAL SIGNS: Reviewed. MEDICATIONS: No major side effects. LABORATORY DATA: Reviewed. ASSESSMENT: 1. Major depressive disorder, recurrent. 2. Major neurocognitive disorder, vascular with depression. PLAN: To continue with the current treatment. Planned for discharge tomorrow. DELIA HARMAN MD DR: MELONY/amada JOB#: [id number] / [id number]
[2018-02-18] MEDS ORDERED: ARIP5TAB13 PO (01:27)
[2018-02-18] MEDS ORDERED: CHOL500021 PO (01:29)
[2018-02-18] MEDS ORDERED: DULO60CA6 PO (01:31)
[2018-02-18] MEDS ORDERED: LACT1CAP21 PO (01:33)
[2018-02-18] MEDS ORDERED: LIDO1ADH10 TP (01:35)
[2018-02-18] MEDS ORDERED: MAG-70 PO (01:36)
[2018-02-18] MEDS ORDERED: MAGN400O7 PO (01:37)
[2018-02-18] MEDS ORDERED: METH29OI TP (01:38)
[2018-02-18] MEDS ORDERED: MIRT15TA PO (01:39)
[2018-02-18] MEDS ORDERED: NICO1PAT25 TD (01:45)
[2018-02-18] MEDS ORDERED: VITS42.55 TP (01:46)
[2018-02-18] MEDS ORDERED: ACET325C3 PO (02:27)
[2018-02-18] MEDS ORDERED: MORP10SO PO (02:43)
[2018-02-18 05:49] VITALS: BP 111/67
[2018-02-18] MEDS ORDERED: metFORMIN XR 500 MG TAB.ER.24H PO SCH (08:00)
[2018-02-18] MEDS: APIXABAN 5 MG TABLET. PO SCH (09:14)
[2018-02-18] MEDS: GABAPENTIN 400 MG CAPSULE. PO SCH ×2 (09:14→12:57)
[2018-02-18] MEDS: MAGNESIUM OXIDE 400 MG TABLET PO SCH (09:14)
[2018-02-18] MEDS: BACLOFEN 10 MG TABLET PO SCH ×2 (09:14→12:57)
[2018-02-18] MEDS: DULoxetine HCL 60 MG CAPSULE.DR PO SCH (09:14)
[2018-02-18] MEDS: LACTOBACILLUS RHAMNOSUS GG 1 CAPSULE. PO SCH (09:14)
[2018-02-18 09:15] VITALS: BP 111/67
[2018-02-18] MEDS: CARVEDILOL 6.25 MG TABLET PO SCH (09:15)
[2018-02-18] MEDS: ARIPiprazole 5 MG TABLET PO SCH (09:15)
[2018-02-18] MEDS: LOSARTAN 50 MG TABLET. PO SCH (09:15)
[2018-02-18] MEDS: ASPIRIN 81 MG TAB.CHEW PO SCH (09:15)
[2018-02-18] MEDS: SPIRONOLACTONE 25 MG TABLET PO SCH (09:15)
[2018-02-18] MEDS: NICOTINE 14MG PATCH. TD SCH (09:16)
[2018-02-18] MEDS: LIDOCAINE (700MG/PATCH) PATCH. TD SCH (09:18)
[2018-02-18] MEDS: VITS A & D/LANOLIN TOPICAL OINTMENT 56GM TUBE. TP SCH (09:18)
[2018-02-18] MEDS ORDERED: METF500T9 PO (11:33)
--- NOTE | 2018-02-18 15:40 | DS ---
DATE OF DISCHARGE: 02/18/2018 FINAL DIAGNOSES: AXIS I: 1. Bipolar disorder type 1, depressed with psychotic features. 2. Major neurocognitive disorder, vascular with delusions and depression. 3. Anxiety disorder, unspecified. 4. History of substance use disorder. AXIS II: None. AXIS III: Status post cerebrovascular accident, expressive aphasia, hearing loss. REASON FOR ADMISSION: This 57-year-old male was admitted to inpatient program at [facility]. The patient is a resident at [facility] and the patient started exhibiting behavior problems and getting more depressed, feeling hopeless and helpless and also getting paranoid and delusional and misinterpreting his environment. HISTORY OF PRESENT ILLNESS: The patient has had a long history of bipolar disorder, history of polysubstance abuse. The patient since the stroke has been having problems with cognition and also his affect getting depressed. The patient also has made statements that he wanted to . He also became aggressive towards his roommate. HOSPITAL COURSE: The patient had a physical exam, routine lab work including CBC, chem profile, urinalysis, which were all within normal range except for elevated blood sugar, elevated liver enzymes, AST 49, ALT 110, alkaline phosphatase 165. The patient's BUN was 27 at the time of admission. The patient's hemoglobin A1c of 7. The patient's thyroid profile was within normal limits. The patient's HDL cholesterol was 38. The patient was enrolled in the program including individual therapy, group therapy, activity therapy. The patient did exhibit fluctuating symptoms, periods of depression, noncommunicative secondary to his aphasia, also exhibiting low frustration tolerance, not able to sleep, also refusing to eat at times, and also refusing to take his medications. The patient was on metformin 500 mg daily, Abilify 2.5 mg daily, Cymbalta 60 mg daily, mirtazapine 7.5 mg at night, Lipitor 40 mg daily, spironolactone 25 mg daily, baclofen 10 mg t.i.d., gabapentin 400 mg q.i.d., also on Coreg 6.25 mg twice a day, aspirin 81 mg daily, tramadol 50 mg q.6 hours p.r.n. The patient also had an ultrasound of abdomen because of the elevated LFT. Apparently, the report was incomplete. The patient also had a CT chest, abdomen, pelvis with contrast, no significant change except for nondisplaced right 4th through 6th rib fractures. The patient did not present with any side effects to medications. AFTERCARE PLAN: The patient at the time of discharge is medically stable. The patient still has significant speech impediment secondary to expressive aphasia. The patient's sleep and appetite have improved. The patient was not expressing any suicidal or homicidal thoughts. The patient will return to [facility] and continue with the current medications and also continue to see his primary care doctor and the psychiatrist. DELIA HARMAN MD DR: MELONY/amada JOB#: [id number] / [id number]
== END 2018-02-18 14:45 | DRG 885 ==
LOC: GEROPSY 19:40
PROVIDERS: ADMIT Psychiatry & Neurology Psychiatry; ATTEND Psychiatry & Neurology Psychiatry
DX: F31.5 Bipolar disorder, current episode depressed, severe, with psychotic features (principal); F02.81 Dementia in other diseases classified elsewhere, unspecified severity, with behavioral disturbance; F01.51 Vascular dementia, unspecified severity, with behavioral disturbance; G81.94 Hemiplegia, unspecified affecting left nondominant side; N39.0 Urinary tract infection, site not specified; G30.9 Alzheimer's disease, unspecified; I11.0 Hypertensive heart disease with heart failure; H91.90 Unspecified hearing loss, unspecified ear; I50.9 Heart failure, unspecified; G89.29 Other chronic pain; F41.9 Anxiety disorder, unspecified; F63.9 Impulse disorder, unspecified; I48.91 Unspecified atrial fibrillation; I25.10 Atherosclerotic heart disease of native coronary artery without angina pectoris; Z79.899 Other long term (current) drug therapy; I69.320 Aphasia following cerebral infarction; Z79.82 Long term (current) use of aspirin; Z79.84 Long term (current) use of oral hypoglycemic drugs; Z82.49 Family history of ischemic heart disease and other diseases of the circulatory system; Z88.5 Allergy status to narcotic agent; Z88.0 Allergy status to penicillin; Z88.7 Allergy status to serum and vaccine
CPT/HCPCS: 36415; 71260; 74018; 74177; 76705; 80053; 80061; 81001; 82150; 82306; 82607; 82947; 83036; 83540; 83550; 83605; 83615; 83690; 83735; 84436; 84443; 84480; 85025; 86592; 87086; 87186; 93005; 99406; J0696; Q0167; Q9967